=== PATIENT | female | born 1935 | race Caucasian/White ===

== ENCOUNTER → 2016-02-29 | Outpatient (CLI) | payer MEDICARE ==
[~2016-02-29] MED LIST: ACYC400T PO; ALPR0.5T7 PO; AMLO5TAB2 PO; ASCO-262 PO; BACL10TA PO; CALC1TAB74 PO; CATHETER FLUSH 10 ML SYR IV PRN; CHOL2000 PO; DEXA4TAB; HYDR-3820 PO; IRON150C3 PO; LACT20SO2 PO; LOSA100T28 PO; LOSA50TA36 PO; MAGN400T6 PO; METR500T21 PO; MONT10TA24 PO; MULT-1021 PO; OMEG-160 PO; OMEP20CA12 PO; PSYL798P2 PO; RIVA15TA PO; SOTA80TA PO; Sotalol Hcl PO; TRAM50TA2 PO
--- OUTSIDE RECORDS SUMMARY | 2016-02-29 07:59 | XMS REPORT | Continuity of Care Document ---
Author Author [facility] Organization [facility] Address Unknown Phone Unavailable Care Team Providers Care Prototype Deicer Assembler Name Role Phone NATANAEL ROBERT DO PCP Insurance Providers Payer Name Policy Number Subscriber Name Relationship Wps Medicare [id number] Erlinda Ballard 18 Self / Same As Patient Blue Cross Mcr Supp [id number] Erlinda Ballard 18 Self / Same As Patient Advance Directives Directive Response Recorded Date/Time Advance Directives No 10/26/15 10:29am Health Care Power of Home Health Aide Caregiver No 10/26/15 10:29am Organ Donor Yes 10/26/15 10:29am Resuscitation Status Full Code 10/26/15 10:29am Problems No problem information available. Medications Current Home Medications Medication Dose Units Route Directions Days/Qty Instructions Start Date Sotalol Hcl 80 Mg 80 Mg Oral Daily 10/26/15 Rivaroxaban 15 Mg 15 Mg Oral Daily 10/26/15 Losartan Potassium 100 Mg 100 Mg Oral Daily 10/26/15 Omeprazole 20 Mg 20 Mg Oral Daily 10/26/15 Calcium Citrate/Vitamin D3 1 Each 1 Each Oral Daily 10/26/15 Magnesium Oxide 400 Mg 400 Mg Oral Daily 10/26/15 Amlodipine Besylate 5 Mg 5 Mg Oral Daily 10/26/15 Montelukast Sodium 10 Mg 10 Mg Oral Bedtime 10/26/15 Social History Social History Problem Response Recorded Date/Time Alcohol Use Denies Use 10/26/2015 10:37am Recreational Drug Use No 10/26/2015 10:37am Recent Foreign Travel No 10/26/2015 10:29am Recent Infectious Disease Exposure No 10/26/2015 10:29am Smoking Status Never a Smoker 10/26/2015 10:31am Recent Hopitalizations No 10/26/2015 10:37am Query Response Start Date Stop Date Smoking Status Never a Smoker Hospital Discharge Instructions No hospital discharge instructions. Plan of Care Discharge Date 10/26/15 11:30am Prescriptions See Medication Section Functional Status No functional status results. Allergies, Adverse Reactions, Alerts No known allergies. Immunizations No immunization records. Vital Signs Acute Vital Signs Vital Response Date/Time Pulse Rate (adult) 72 bpm (60 - 90) 10/26/2015 10:29am O2 Sat by Pulse Oximetry 97 % (88 - 100) 10/26/2015 10:29am Blood Pressure 149/84 mm Hg 10/26/2015 10:29am Blood Pressure Mean 105 mm Hg 10/26/2015 10:29am Pain Numeric Pain Scale 0-No Pain 10/26/2015 10:29am Height (Feet) 5 feet 10/26/2015 10:29am Height (Inches) 1.00 inches 10/26/2015 10:29am Height (Calculated Centimeters) 154.911299 cm 10/26/2015 10:29am Weight (Pounds) 160 pounds 10/26/2015 10:29am Weight (Ounces) 6.0 oz 10/26/2015 10:29am Weight (Calculated Grams) 53179.88 gm 10/26/2015 10:29am Weight (Calculated Kilograms) 72.856376 kilograms 10/26/2015 10:29am Calculated BMI 30.3 10/26/2015 10:29am Results Laboratory Results Test Name Result Units Flags Reference Collection Date/Time Result Date/ Time Comments White Blood Count 6.0 10^3/uL 4.3-11.0 10/26/2015 11:00am 10/26/2015 11 :20am Red Blood Count 3.75 10^6/uL L 4.35-5.85 10/26/2015 11:00am 10/26/2015 11 :20am Hemoglobin 12.4 G/DL 11.5-16.0 10/26/2015 11:00am 10/26/2015 11:20am Hematocrit 37 % 35-52 10/26/2015 11:00am 10/26/2015 11:20am Mean Corpuscular Volume 99 FL 80-99 10/26/2015 11:0010/26/2015 11: 20am Mean Corpuscular Hemoglobin 33 PG 25-34 10/26/2015 11:0010/26/2015 11:20am Mean Corpuscular Hemoglobin Concent 34 G/DL 32-36 10/26/2015 11:00am 11:20am Red Cell Distribution Width 14.2 % 10.0-14.5 10/26/2015 11:002015 11:20am Platelet Count 237 10^3/uL 130-400 10/26/2015 11:00am 10/26/2015 11: 20am Mean Platelet Volume 10.3 FL 7.4-10.4 10/26/2015 11:00am 10/26/2015 11: 20am Neutrophils (%) (Auto) 52 % 42-75 10/26/2015 11:00am 10/26/2015 11: 20am Lymphocytes (%) (Auto) 34 % 12-44 10/26/2015 11:00am 10/26/2015 11: 20am Monocytes (%) (Auto) 11 % 0-12 10/26/2015 11:00am 10/26/2015 11:20am Eosinophils (%) (Auto) 3 % 0-10 10/26/2015 11:0010/26/2015 11:20am Basophils (%) (Auto) 1 % 0-10 10/26/2015 11:00am 10/26/2015 11:20am Neutrophils # (Auto) 3.1 X 10^3 1.8-7.8 10/26/2015 11:00am 10/26/2015 11:20am Lymphocytes # (Auto) 2.1 X 10^3 1.0-4.0 10/26/2015 11:00am 10/26/2015 11:20am Monocytes # (Auto) 0.6 X 10^3 0.0-1.0 10/26/2015 11:0010/26/2015 11: 20am Eosinophils # (Auto) 0.2 10^3/uL 0.0-0.3 10/26/2015 11:00am 10/26/2015 11:20am Basophils # (Auto) 0.0 10^3/uL 0.0-0.1 10/26/2015 11:00am 10/26/2015 11 :20am Prothrombin Time 27.1 SEC H 12.2-14.7 10/26/2015 11:00am 10/26/2015 11: 55am INR Comment 2.5 H 0.8-1.4 10/26/2015 11:00am 10/26/2015 11:55am INTERPRETIVE DATA SUGGESTED THERAPEUTIC RANGE FOR INR'S: VENOUS THROMBOSIS, PULMONARY EMBOLISM, OR PREVENTION OF SYSTEMIC EMBOLISM (EG. IN ATRIAL FIBRILLATION): 2.0 - 3.0 MECHANICAL PROSTHETIC HEART VALVES: 2.5 - 3.5* *NOTE: INR'S UP TO 4.5 MAY BE NECESSARY IN SELECTED GROUPS OF HIGH RISK PATIENTS. [employer] [place] [employer] OF CHEST PHYSICIANS CONSENSUS CONFERENCE ON ANTITHROMBOTIC THERAPY (2000). Urine Color YELLOW 10/26/2015 11:53am 10/26/2015 12:21pm Urine Clarity CLEAR 10/26/2015 11:53am 10/26/2015 12:21pm Urine pH 7 5-9 10/26/2015 11:53am 10/26/2015 12:21pm Urine Specific [place] 1.005 * 1.016-1.022 10/26/2015 11:53am 2015 12:21pm Urine Protein NEGATIVE NEGATIVE 10/26/2015 11:53am 10/26/2015 12: 21pm Urine Glucose (UA) NEGATIVE NEGATIVE 10/26/2015 11:53am 10/26/2015 12 :21pm Urine RBC (Auto) NEGATIVE NEGATIVE 10/26/2015 11:53am 10/26/2015 12: 21pm Urine Ketones NEGATIVE NEGATIVE 10/26/2015 11:53am 10/26/2015 12: 21pm Urine Nitrite NEGATIVE NEGATIVE 10/26/2015 11:53am 10/26/2015 12: 21pm Urine Bilirubin NEGATIVE NEGATIVE 10/26/2015 11:53am 10/26/2015 12: 21pm Urine Urobilinogen NORMAL MG/DL NORMAL 10/26/2015 11:53am 10/26/2015 12 :21pm Urine Leukocyte Esterase 1+ * NEGATIVE 10/26/2015 11:53am 10/26/2015 12 :21pm Urine RBC NONE /HPF 10/26/2015 11:53am 10/26/2015 12:21pm Urine WBC NONE /HPF 10/26/2015 11:53am 10/26/2015 12:21pm Urine Bacteria NEGATIVE /HPF 10/26/2015 11:53am 10/26/2015 12:21pm Urine Squamous Epithelial Cells 2-5 /HPF 10/26/2015 11:53am 2015 12:21pm Urine Crystals NONE /LPF 10/26/2015 11:53am 10/26/2015 12:21pm Urine Casts NONE /LPF 10/26/2015 11:53am 10/26/2015 12:21pm Urine Mucus NEGATIVE /LPF 10/26/2015 11:53am 10/26/2015 12:21pm Urine Culture Indicated NO 10/26/2015 11:53am 10/26/2015 12:21pm Sodium Level 130 MMOL/L L 135-145 10/26/2015 11:00am 10/26/2015 11:38am Potassium Level 4.1 MMOL/L 3.6-5.0 10/26/2015 11:00am 10/26/2015 11: 38am Chloride Level 102 MMOL/L 98-107 10/26/2015 11:00am 10/26/2015 11:38am Carbon Dioxide Level 21 MMOL/L 21-32 10/26/2015 11:00am 10/26/2015 11: 38am Anion Gap 7 MMOL/L 5-14 10/26/2015 11:00am 10/26/2015 11:38am Blood Urea Nitrogen 21 MG/DL H 7-18 10/26/2015 11:00am 10/26/2015 11: 38am Creatinine 1.05 MG/DL 0.60-1.30 10/26/2015 11:00am 10/26/2015 11:38am BUN/Creatinine Ratio 20 10/26/2015 11:00am 10/26/2015 11:38am Estimat Glomerular Filtration Rate 51 10/26/2015 11:00am 2015 11:38am GFR INTERPRETIVE DATA UNITS FOR ESTIMATED GFR (eGFR): mL/min/1.73 M2 REFERENCE RANGE FOR ESTIMATED GFR (eGFR) eGFR NORMAL eGFR >60 MODERATELY DECREASED eGFR 30-59 SEVERLY DECREASED eGFR 15-29 KIDNEY FAILURE <15 (OR DIALYSIS) Glucose Level 91 MG/DL 70-105 10/26/2015 11:00am 10/26/2015 11:38am Calcium Level 10.5 MG/DL H 8.5-10.1 10/26/2015 11:00am 10/26/2015 11: 38am Procedures No known history of procedures. Encounters Encounter Location Arrival/Admit Date Discharge/Depart Date Attending Provider Departed [facility] 10/26/15 10:11am 10/26/15 11: 30am URIAH PINA DO
--- NOTE | 2016-02-29 14:04 | Diagnostic Imaging Report ---
Whole body bone scan with three-phase bone scan over the pelvis performed. TECHNIQUE: After the intravenous administration of 25.5 mCi of Technetium 99m MDP, whole body delayed phase bone scan images were obtained with lateral views of the head and neck and the chest regions. INDICATION: Lytic lesion in the right hip. FINDINGS: Recent CT scan demonstrates a right hip lesion suggestive of an underlying soft tissue mass with fracture seen along the greater trochanter. Other lesions are identified in the femoral head and neck junction on the right side and the right sacrum ala. These lesions demonstrate no definitive activity with increased triphasic activity around the greater trochanter probably secondary to the fracture. Whole body delayed phase images demonstrate no definitive lesion other than the mild to moderate activity around the fracture site in the right greater trochanter. There is mild increased radiotracer activity in the mid and lower thoracic spine and some degenerative pattern of activity around the shoulders and other joints. There is photopenia suggestive of bilateral knee replacement seen. Slight asymmetric increased activity around the left knee prosthesis is noted, a nonspecific finding which is particularly expected if the prosthesis placement was within a year. Renal collecting system excretion is noted. IMPRESSION: The lytic lesions seen in the pelvis are not associated with significantly increased radiotracer uptake and the mild to moderate uptake around the greater trochanter lesion is probably secondary to the associated fracture. The findings are in favor of multiple myeloma rather than metastatic disease. CT-guided biopsy of the right greater trochanter or right sacrum ala lesion could be performed if needed. Dictated by: Dictated on workstation # [id number]
== END ==
LOC: CARD 07:54
PROVIDERS: ATTEND Orthopaedic Surgery
DX: M85.851 Other specified disorders of bone density and structure, right thigh (principal)
CPT/HCPCS: 78315

== ENCOUNTER → 2016-03-08 | Outpatient (CLI) | payer MEDICARE ==
[~2016-03-08] MED LIST changes: -CATHETER FLUSH 10 ML SYR IV PRN
--- OUTSIDE RECORDS SUMMARY | 2016-03-08 12:05 | XMS REPORT | Continuity of Care Document ---
Author Author [facility] Organization [facility] Address Unknown Phone Unavailable Care Team Providers Care Naphthol Soaping Machine Operator Name Role Phone NATANAEL ROBERT DO PCP Insurance Providers Payer Name Policy Number Subscriber Name Relationship Wps Medicare [id number] Erlinda Ballard 18 Self / Same As Patient Blue Cross Mcr Supp [id number] Erlinda Ballard 18 Self / Same As Patient Advance Directives Directive Response Recorded Date/Time Advance Directives No 10/26/15 10:29am Health Care Power of Yield Engineer No 10/26/15 10:29am Organ Donor Yes 10/26/15 [...] 1.00 inches 10/26/2015 10:29am Height (Calculated Centimeters) 154.840230 cm 10/26/2015 10:29am Weight (Pounds) 160 pounds 10/26/2015 10:29am Weight (Ounces) 6.0 oz 10/26/2015 10:29am Weight (Calculated Grams) 64060.88 gm 10/26/2015 10:29am Weight (Calculated Kilograms) 72.407886 kilograms 10/26/2015 10:29am Calculated BMI 30.3 10/26/2015 [...] SELECTED GROUPS OF HIGH RISK PATIENTS. [employer] [place] [place] [employer] CHEST PHYSICIANS CONSENSUS CONFERENCE ON ANTITHROMBOTIC THERAPY (2000). Urine Color YELLOW 10/26/2015 11:53am 10/26/2015 12:21pm Urine Clarity CLEAR 10/26/2015 11:53am 10/26/2015 12:21pm Urine pH 7 5-9 10/26/2015 11:53am 10/26/2015 12:21pm Urine Specific [place] 1.005 * 1.016-1.022 10/26/2015 11:53am 2015 12:21pm [...] Discharge/Depart Date Attending Provider Departed Clinic [facility] 10/26/15 10:11am 10/26/15 11: 30am URIAH PINA DO
--- NOTE | 2016-03-08 18:59 | Diagnostic Imaging Report ---
INDICATION: Multiple bone lesions. Multiple myeloma. FINDINGS: Lateral view of the skull demonstrate no definite underlying mass. Lateral view of the cervical spine demonstrates advanced degenerative changes with no lytic mass. Thoracic spine demonstrates advanced degenerative changes. The thoracic spine also demonstrates advanced degenerative changes with mild left convexity scoliosis. There is small lucency seen within the clavicles, the scapula, and the ribs in a diffuse fashion which may relate to multiple myeloma. Bilateral humerus and forearm radiographs demonstrate multifocal areas of lucency within these bones, probably related to multiple myeloma. These are numerous and very small in size. The pelvis demonstrates similar diffuse lesions with a dominant lytic lesion identified in the greater tuberosity. The lesion seen on CT scan within the right sacrum ala superiorly is slightly obscured by bowel content and the lesion in the medial inferior aspect of the right humeral head is not well seen. Pathologic fracture of the greater trochanter is seen. Both femurs demonstrate numerous tiny foci of lucency likely related to multiple myeloma. The tibia and fibula demonstrate bilateral knee replacement with no definite myeloma lesion. IMPRESSION: There is a pattern of diffuse tiny foci of lucency seen within the osseous structures most prominent in the pelvis, the femora, the ribs, shoulders and proximal upper extremities with dominant larger few lesions in the pelvis likely related to multiple myeloma. Dictated by: Dictated on workstation # [id number]
== END ==
LOC: RAD 12:00
PROVIDERS: ATTEND Internal Medicine
DX: C90.00 Multiple myeloma not having achieved remission (principal)
CPT/HCPCS: 77075

== ENCOUNTER 2016-03-23 06:52 | Day surgery (SDC) | payer MEDICARE ==
[~2016-03-23] VITALS: Ht 154.9 cm; Wt 68.2 kg
[2016-03-23] VITALS (14 sets, daily range): BP systolic 103–179; BP diastolic 59–100
[~2016-03-23 06:52] MED LIST changes: -ACYC400T PO; -ALPR0.5T7 PO; -DEXA4TAB; -LOSA50TA36 PO; -METR500T21 PO
--- OUTSIDE RECORDS SUMMARY | 2016-03-23 06:55 | XMS REPORT | Continuity of Care Document ---
Author Author [facility] Organization [facility] Address Unknown Phone Unavailable Care Team Providers Care Cash Management Officer Name Role Phone NATANAEL ROBERT DO PCP Insurance Providers Payer Name Policy Number Subscriber Name Relationship Wps Medicare [id number] Erlinda Ballard 18 Self / Same As Patient Blue Cross Mcr Supp [id number] Erlinda Ballard 19 Self / Same As Patient Advance Directives Directive Response Recorded Date/Time Advance Directives No 10/26/15 10:29am Health Care Power of Older Worker Specialist No 10/26/15 10:29am Organ Donor Yes 10/26/15 [...] 1.00 inches 10/26/2015 10:29am Height (Calculated Centimeters) 154.263331 cm 10/26/2015 10:29am Weight (Pounds) 160 pounds 10/26/2015 10:29am Weight (Ounces) 6.0 oz 10/26/2015 10:29am Weight (Calculated Grams) 93853.88 gm 10/26/2015 10:29am Weight (Calculated Kilograms) 72.584945 kilograms 10/26/2015 10:29am Calculated BMI 30.3 10/26/2015 [...] SELECTED GROUPS OF HIGH RISK PATIENTS. SIXTH [place] [employer] CHEST PHYSICIANS CONSENSUS CONFERENCE ON ANTITHROMBOTIC THERAPY (2000). Urine Color YELLOW 10/26/2015 11:53am 10/26/2015 12:21pm Urine Clarity CLEAR 10/26/2015 11:53am 10/26/2015 12:21pm Urine pH 7 5-9 10/26/2015 11:53am 10/26/2015 12:21pm Urine Specific [place] 1.005 * 1.016-1.022 10/26/2015 11:53am 2015 12:21pm [...] Discharge/Depart Date Attending Provider Departed Clinic [facility] 10/26/15 10:11am 10/26/15 11: 30am URIAH PINA DO
--- OUTSIDE RECORDS SUMMARY | 2016-03-23 06:56 | XMS REPORT | Continuity of Care Document ---
Author Author [facility] Organization [facility] Address Unknown Phone Unavailable Care Team Providers Care Parcel Post Officer Name Role Phone NATANAEL ROBERT DO PCP Insurance Providers Payer Name Policy Number Subscriber Name Relationship Wps Medicare [id number] Erlinda Ballard 19 Self / Same As Patient Blue Cross Mcr Supp [id number] Erlinda Ballard 19 Self / Same As Patient Advance Directives Directive Response Recorded Date/Time Advance Directives No 10/26/15 10:29am Health Care Power of Wool Handler No 10/26/15 10:29am Organ Donor Yes 10/26/15 [...] 1.00 inches 10/26/2015 10:29am Height (Calculated Centimeters) 154.812886 cm 10/26/2015 10:29am Weight (Pounds) 160 pounds 10/26/2015 10:29am Weight (Ounces) 6.0 oz 10/26/2015 10:29am Weight (Calculated Grams) 54852.88 gm 10/26/2015 10:29am Weight (Calculated Kilograms) 72.172481 kilograms 10/26/2015 10:29am Calculated BMI 30.3 10/26/2015 [...] SELECTED GROUPS OF HIGH RISK PATIENTS. SIX[employer] [place] [employer] CHEST PHYSICIANS CONSENSUS CONFERENCE ON ANTITHROMBOTIC THERAPY (2000). Urine Color YELLOW 10/26/2015 11:53am 10/26/2015 12:21pm Urine Clarity CLEAR 10/26/2015 11:53am 10/26/2015 12:21pm Urine pH 7 5-9 10/26/2015 11:53am 10/26/2015 12:21pm Urine Specific [place] 1.005 * 1.016-1.022 10/26/2015 11:53am 2015 12:21pm [...] Discharge/Depart Date Attending Provider Departed Clinic [facility] 10/26/15 10:11am 10/26/15 11: 30am URIAH PINA DO
[2016-03-23 07:31] LABS: MEAN PLATELET VOLUME 9.4 FL (7.4-10.4); RED BLOOD COUNT 3.73 10^6/uL (4.35-5.85); WHITE BLOOD COUNT 5.9 10^3/uL (4.3-11.0)
[2016-03-23] MEDS ORDERED: fentaNYL INJECTION 100 MCG/2 ML AMP ONE (07:58)
[2016-03-23] MEDS ORDERED: MIDAZOLAM 2 MG/2 ML (VERSED) VIAL ONE (07:58)
[2016-03-23] MEDS ORDERED: LIDOCAINE 1% INJ 20 ML (XYLOCAINE) VIAL ONE (07:59)
[2016-03-23] MEDS: fentaNYL INJECTION 100 MCG/2 ML AMP IVP PRN ×2 (08:40→08:49)
[2016-03-23] MEDS ORDERED: HYDROcodone/APAP 5 MG/325 MG (LORTAB) TAB PO PRN (09:15)
[2016-03-23 09:20] LABS: BASOPHILS % (AUTO) 1 % (0-10); EOSINOPHILS # (AUTO) 0.1 10^3/uL (0.0-0.3); EOSINOPHILS % (AUTO) 2 % (0-10); LYMPHOCYTES # (AUTO) 2.7 X 10^3 (1.0-4.0); LYMPHOCYTES % (AUTO) 42 % (12-44); MEAN CORPUSCULAR HEMOGLOBIN 33 PG (25-34); MEAN CORPUSCULAR HGB CONC 34 G/DL (32-36); MEAN CORPUSCULAR VOLUME 97 FL (80-99); MEAN PLATELET VOLUME 9.7 FL (7.4-10.4); MONOCYTES # (AUTO) 0.8 X 10^3 (0.0-1.0); MONOCYTES % (AUTO) 12 % (0-12); NEUTROPHILS # (AUTO) 2.8 X 10^3 (1.8-7.8); NEUTROPHILS % (AUTO) 44 % (42-75); PLATELET COUNT 323 10^3/uL (130-400); RED BLOOD COUNT 3.72 10^6/uL (4.35-5.85); RETICULOCYTE % 1.53 % (0.50-2.40); WHITE BLOOD COUNT 6.4 10^3/uL (4.3-11.0)
--- NOTE | 2016-03-23 09:33 | Diagnostic Imaging Report ---
EXAMINATION: 1. CT-guided biopsy-of slightly to the right sacrum mass. 2. CT-guided aspiration and biopsy of the bone marrow taken from the right iliac bone INDICATION: Lytic lesions in the pelvis, suspicious for from multiple myeloma. Current history and physical and other medical records are reviewed prior to the procedure. CONSENT: Informed consent was obtained from the patient. The risks, benefits, potential complications and alternatives were reviewed and all questions answered to the patient's satisfaction. The patient's vital signs, cardiac rhythm, and pulse oximetry were observed throughout the procedure by qualified nursing personnel. Sedation/medications: Fentanyl 50 mcg IV. FINDINGS: Lytic lesion in the right the upper sacrum is seen. The patient is placed prone and the 2 biopsies are planned from adjacent sites. PROCEDURE: After maximal sterile barrier technique preparation and draping, 1% lidocaine was utilized for local anesthesia. With the patient in prone position, and via posterior approach, a 13-gauge guide needle is introduced into the right iliac bone under CT scan guidance. After confirming adequate positioning with saved CT images, bone marrow aspirates are performed and provided to senior cytotechnologist present in the room. Subsequently multiple core biopsy specimens were obtained. Based on the suspected diagnosis of multiple myeloma, pathology requested that both aspiration and core biopsy to be performed for complete analysis. Subsequently attention was turned into the upper from right sacrum lytic lesion. Similarly with the patient in prone position, and via posterior approach, a new 19-gauge guide needle is introduced into the right upper sacrum lytic lesion under CT scan guidance. After confirming adequate positioning with saved CT images, multiple 18-gauge core biopsy specimens were obtained. The patient tolerated the procedure well with no immediate complications. IMPRESSION: Successful CT-guided biopsy of upper right sacrum lytic lesion, and bone marrow aspiration and the biopsy performed separately from the right iliac bone. Dictated by: Dictated on workstation # [id number]
[2016-03-23 10:01] LABS: BAND NEUTROPHILS 0 %; BASOPHILS % (MANUAL) 1 %; EOSINOPHILS % (MANUAL) 1 %; LYMPHOCYTES % (MANUAL) 34 %; NEUTROPHILS % (MANUAL) 49 %; REACTIVE LYMPHOCYTES 9 %
[2016-06-10] MEDS ORDERED: ACYC400T PO (23:38)
[2016-06-10] MEDS ORDERED: ALPR0.5T7 PO (23:38)
[2016-06-11] MEDS ORDERED: LOSA50TA36 PO (12:17)
== END 2016-03-23 13:06 | disposition home or self-care (01) ==
LOC: RAD 06:52
PROVIDERS: ATTEND Internal Medicine Hematology & Oncology
DX: C90.00 Multiple myeloma not having achieved remission (principal); I48.91 Unspecified atrial fibrillation; K21.9 Gastro-esophageal reflux disease without esophagitis; Z95.0 Presence of cardiac pacemaker; Z79.01 Long term (current) use of anticoagulants
CPT/HCPCS: 36415; 77012; 85007; 85027; 85045; 85610; 85730; 88184; 88185; 88237; 88264; 88280; 88305; 88311; 88313; 88368; 88369

== ENCOUNTER → 2016-05-12 | Outpatient (CLI) | payer MEDICARE ==
[~2016-05-12] MED LIST changes: +ACYC400T PO; +ALPR0.5T7 PO; +DEXA4TAB; +LOSA50TA36 PO; +METR500T21 PO
== END ==
LOC: RAD 16:20
PROVIDERS: ATTEND Internal Medicine Hematology & Oncology
DX: C90.00 Multiple myeloma not having achieved remission (principal); R32 Unspecified urinary incontinence; R51 Headache

== ENCOUNTER 2016-06-10 19:33 | Observation (INO) | payer MEDICARE ==
[~2016-06-10] VITALS: Ht 154.9 cm; Wt 68.2 kg
[~2016-06-10 19:33] MED LIST changes: -ACYC400T PO; -ALPR0.5T7 PO; -DEXA4TAB; -LOSA50TA36 PO; -METR500T21 PO
--- NOTE | 2016-06-10 19:46 | ED General ---
General Chief Complaint: General Problems/Pain Stated Complaint: UNRESPONSIVE Nursing Triage Note: Patient was eating with daughter and became unresponsive and was slumped over. patient remained unresponsive until EMS obtained her BP. Patient is alert and oriented on arrival to ED. patient currently denies needs or complaints. Nursing Sepsis Screen: No Definite Risk Source of Information: Patient Exam Limitations: No Limitations History of Present Illness Time Seen by Provider: 19:43 Initial Comments Patient had just finished eating dinner when she had a syncopal episode. Patient felt lightheaded prior to event. Daughter reports patient became pale and wasn't making much sense then she completely lost consciousness. Daughter called 911. Patient remained in the chair until EMS arrived. When they put patient on the cart (horizontal) she regained consciousness. No vomiting. No complaints of pain. No seizure activity noted. No incontinence. Feels fine now. Patient has multiple myeloma and received her second dose of chemotherapy on Sunday. Allergies and Home Medications Allergies Coded Allergies: No Known Drug Allergies (Unverified , 11/11/15) Home Medications Amlodipine Besylate 5 Mg Tablet, 5 MG PO DAILY, (Reported) Ascorbate Calcium 500 Mg Tablet, 500 MG PO HS, (Reported) Baclofen 10 Mg Tablet, 10 MG PO TID PRN for SPASMS for 30 Days Prescribed by: ROLF AMADO on 11/11/15 08 Calcium Citrate/Vitamin D3 1 Each Tablet, 1 TAB PO DAILY, (Reported) Cholecalciferol (Vitamin D3) 2,000 Unit Capsule, 2,000 UNIT PO HS, (Reported) Hydrocodone/Acetaminophen 1 Each Tablet, 1 EA PO Q4H PRN for MODERATE PAIN for 30 Days Prescribed by: ROLF AMADO on 11/11/15 08 Hydrocodone/Acetaminophen 1 Each Tablet, 1 EA PO Q4H PRN for MODERATE PAIN, #30 Prescribed by: TAE MENDOZA on 11/19/15 09 Iron Polysaccharide Complex 150 Mg Capsule, 150 MG PO BID WITH MEALS for 30 Days Prescribed by: ROLF AMADO on 11/11/15 08 Lactulose 20 Gm/30 Ml Solution, 10 GM PO BID for 30 Days Prescribed by: ROLF AMADO on 11/11/15 08 Losartan Potassium 100 Mg Tablet, 100 MG PO DAILY, (Reported) Magnesium Oxide 400 Mg Tablet, 400 MG PO DAILY, (Reported) Montelukast Sodium 10 Mg Tablet, 10 MG PO HS, (Reported) Multivits-Min/Iron/FA/Lutein 1 Each Tablet, 1 TAB PO HS, (Reported) [place]-3/Dha/Epa/Fish Oil 1 Each Capsule, 2,000 MG PO HS, (Reported) TAKES 2 (1,000 MG) CAPSULES Omeprazole 20 Mg Capsule.dr, 20 MG PO DAILY, (Reported) Psyllium Husk (with Sugar) 538 Gm Powder, PO HS, (Reported) Rivaroxaban 15 Mg Tablet, 15 MG PO DAILY, (Reported) Sotalol HCl 80 Mg Tablet, 80 MG PO DAILY, (Reported) Tramadol HCl 50 Mg Tablet, 50 MG PO Q6H PRN for MILD PAIN for 30 Days Prescribed by: ROLF AMADO on 11/11/15 0843 Tramadol HCl 50 Mg Tablet, 50 MG PO Q6H PRN for MILD PAIN, #30 Prescribed by: TAE MENDOZA on 11/19/15 0907 Tramadol HCl 50 Mg Tablet, 50 MG PO TID PRN for PAIN, #20 Ref 0 Prescribed by: SHAQUILLE HERNANDEZ on 02/17/16 1758 [Sotalol Hcl] 80 MG TAB, 80 MG PO DAILY, #30 Prescribed by: ROLF AMADO on 11/20/15 1355 Constitutional: malaise, weakness EENTM: no symptoms reported Respiratory: no symptoms reported Cardiovascular: no symptoms reported Musculoskeletal: no symptoms reported Psychiatric/Neurological: See HPI, Denies Seizure Past Sijcdre-Gcftkc-Sffjqq Hx Patient Social History Alcohol Use: Denies Use Recreational Drug Use: No Smoking Status: Never a Smoker Recent Foreign Travel: No Contact w/Someone Who Travel: No Recent Infectious Disease Expo: No Recent Hopitalizations: No Immunizations Up To Date Tetanus Booster (TDap): Less than 5yrs Date of Pneumonia Vaccine: Nov 09, 2011 Date of Influenza Vaccine: Nov 11, 2015 Seasonal Allergies Seasonal Allergies: Yes Surgeries HX Surgeries: Yes (right TKR, rectal fistula) Respiratory Hx Respiratory Disorders: No Cardiovascular Hx Cardiac Disorders: Yes (pacemaker) Neurological Hx Neurological Disorders: No Gastrointestinal Hx Gastrointestinal Disorders: No Musculoskeletal Hx Musculoskeletal Disorders: Yes Musculoskeletal Disorders: Arthritis Endocrine Hx Endocrine Disorders: No HEENT HX ENT Disorders: Yes (cataracts removed, glasses, full set of dentures) Cancer Hx Cancer: Yes Cancer: Bone, Melanoma Psychosocial Hx Psychiatric Problems: No Integumentary HX Skin/Integumentary Disorder: No Blood Transfusions Hx Blood Disorders: No Reviewed Nursing Assessment Reviewed/Agree w Nursing PMH: Yes Family Medical History Family Medial History: Arthritis 19 FATHER 19 MOTHER G8 BROTHER G8 SISTER Cardiovascular disease 19 FATHER Hypertension 19 FATHER 19 MOTHER G8 BROTHER G8 SISTER Kidney disease G8 SISTER Myocardial infarction 19 FATHER Physical Exam Vital Signs Vital Sign - Last 12Hours 06/10/16 19:35 Temp 98.2 Pulse 63 Resp 18 B/P (MAP) 161/93 Pulse Ox 96 Capillary Refill : Less Than 3 Seconds General Appearance: No Apparent Distress, WD/WN Eyes: Bilateral Eye EOMI, Bilateral Eye Normal Inspection, Bilateral Eye PERRL HEENT: PERRL/EOMI, Pharynx Normal Neck: Supple Respiratory: Lungs Clear, Normal Breath Sounds Cardiovascular: Regular Rate, Rhythm, No Edema Gastrointestinal: Soft Back: Normal Inspection Extremity: Normal Inspection, Normal Range of Motion Neurologic/Psychiatric: Alert, Oriented x3, No Motor/Sensory Deficits, Normal Mood/Affect Skin: Normal Color, Warm/Dry Progress/Results/Core Measures Results/Orders Lab Results Laboratory Tests Test 06/10/16 19:40 Range/Units White Blood Count 5.8 4.3-11.0 10^3/uL Red Blood Count 3.75 L 4.35-5.85 10^6/uL Hemoglobin 12.3 11.5-16.0 G/DL Hematocrit 36 35-52 % Mean Corpuscular Volume 96 80-99 FL Mean Corpuscular Hemoglobin 33 25-34 PG Mean Corpuscular Hemoglobin Concent 34 32-36 G/DL Red Cell Distribution Width 13.8 10.0-14.5 % Platelet Count 214 130-400 10^3/uL Mean Platelet Volume 9.7 7.4-10.4 FL Neutrophils (%) (Auto) 51 42-75 % Lymphocytes (%) (Auto) 29 12-44 % Monocytes (%) (Auto) 19 H 0-12 % Eosinophils (%) (Auto) 1 0-10 % Basophils (%) (Auto) 0 0-10 % Neutrophils # (Auto) 3.0 1.8-7.8 X 10^3 Lymphocytes # (Auto) 1.7 1.0-4.0 X 10^3 Monocytes # (Auto) 1.1 H 0.0-1.0 X 10^3 Eosinophils # (Auto) 0.1 0.0-0.3 10^3/uL Basophils # (Auto) 0.0 0.0-0.1 10^3/uL Prothrombin Time 22.0 H 12.2-14.7 SEC INR Comment 2.0 H 0.8-1.4 Activated Partial Thromboplast Time 29 24-35 SEC Sodium Level 131 L 135-145 MMOL/L Potassium Level 3.9 3.6-5.0 MMOL/L Chloride Level 100 98-107 MMOL/L Carbon Dioxide Level 21 21-32 MMOL/L Anion Gap 10 5-14 MMOL/L Blood Urea Nitrogen 19 H 7-18 MG/DL Creatinine 1.04 0.60-1.30 MG/DL Estimat Glomerular Filtration Rate 51 BUN/Creatinine Ratio 18 Glucose Level 133 H 70-105 MG/DL Calcium Level 9.5 8.5-10.1 MG/DL Magnesium Level 1.8 1.8-2.4 MG/DL Total Bilirubin 0.8 0.1-1.0 MG/DL Aspartate Amino Transf (AST/SGOT) 39 H 5-34 U/L Alanine Aminotransferase (ALT/SGPT) 21 0-55 U/L Alkaline Phosphatase 87 40-136 U/L Troponin I < 0.30 <0.30 NG/ML Total Protein 7.6 6.4-8.2 G/DL Albumin 3.6 3.2-4.5 G/DL Labs were reviewed My Orders Orders - ANN MARIE KELLY MD Cbc With Automated Diff (06/10/16 19:35) Magnesium (06/10/16 19:35) Ekg Tracing (06/10/16 19:35) Cardiac Profile 1 (06/10/16 19:35) Comprehensive Metabolic Panel (06/10/16 19:35) O2 (06/10/16 19:35) Monitor-Rhythm Ecg Trace Only (06/10/16 19:35) Saline Lock/Iv-Start (06/10/16 19:35) Ct Head Wo (06/10/16 19:40) Protime With Inr (06/10/16 19:40) Partial Thromboplastin Time (06/10/16 19:40) Chest 1 View, Ap/Pa Only (06/10/16 19:40) Vital Signs/I&O Vital Sign - Last 12Hours 06/10/16 19:35 Temp 98.2 Pulse 63 Resp 18 B/P (MAP) 161/93 Pulse Ox 96 Blood Pressure Mean: 115 Progress Note : Time: 20:44 Progress Note Test results discussed with patient and family. Advised admission for observation. Diagnostic Imaging Comments Chest x-ray and head CT showed nothing acute. Departure Communication Time/Spoke to Admitting Phy: 20:44 Communication I spoke with Dr. Amado who agrees to admit for observation Impression Impression: Primary Impression: Syncope Disposition: ADMITTED INPATIENT Condition: Stable Decision to Admit Reason: Admit from ER (General) Decision to Admit/Date: Jun 10, 2016 Time/Decision to Admit Time: 20:44 Departure-Patient Inst. Referrals: SULEIMAN GRIFFIN DO (PCP/Family) Primary Care Physician ANN MARIE KELLY MD Jun 10, 2016 19:46
[2016-06-10 19:49] LABS: BASOPHILS % (AUTO) 0 % (0-10); EOSINOPHILS # (AUTO) 0.1 10^3/uL (0.0-0.3); EOSINOPHILS % (AUTO) 1 % (0-10); LYMPHOCYTES # (AUTO) 1.7 X 10^3 (1.0-4.0); LYMPHOCYTES % (AUTO) 29 % (12-44); MEAN CORPUSCULAR HEMOGLOBIN 33 PG (25-34); MEAN CORPUSCULAR HGB CONC 34 G/DL (32-36); MEAN CORPUSCULAR VOLUME 96 FL (80-99); MEAN PLATELET VOLUME 9.7 FL (7.4-10.4); MONOCYTES # (AUTO) 1.1 X 10^3 (0.0-1.0); MONOCYTES % (AUTO) 19 % (0-12); NEUTROPHILS % (AUTO) 51 % (42-75); PLATELET COUNT 214 10^3/uL (130-400); RED BLOOD COUNT 3.75 10^6/uL (4.35-5.85); RED CELL DISTRIBUTION WIDTH 13.8 % (10.0-14.5); WHITE BLOOD COUNT 5.8 10^3/uL (4.3-11.0)
[2016-06-10 20:11] LABS: ALANINE AMINOTRANSFERASE 21 U/L (0-55); ALBUMIN 3.6 G/DL (3.2-4.5); ANION GAP 10 MMOL/L (5-14); ASPARTATE AMINO TRANSFERASE 39 U/L (5-34); BILIRUBIN,TOTAL 0.8 MG/DL (0.1-1.0); BLOOD UREA NITROGEN 19 MG/DL (7-18); BUN/CREATININE RATIO 18; CALCIUM 9.5 MG/DL (8.5-10.1); CARBON DIOXIDE 21 MMOL/L (21-32); CHLORIDE 100 MMOL/L (98-107); CREATININE SERUM 1.04 MG/DL (0.60-1.30); GFR ESTIMATED 51; GLUCOSE 133 MG/DL (70-105); MAGNESIUM 1.8 MG/DL (1.8-2.4); POTASSIUM 3.9 MMOL/L (3.6-5.0); SODIUM 131 MMOL/L (135-145); TOTAL PROTEIN 7.6 G/DL (6.4-8.2)
--- NOTE | 2016-06-10 20:20 | Diagnostic Imaging Report ---
PROCEDURE: CT head without contrast. TECHNIQUE: Multiple contiguous axial images were obtained through the brain without the use of intravenous contrast. DATE: June 10, 2016. COMPARISON: None. INDICATION: 80-year-old female, syncope. FINDINGS: There is mild mucosal thickening of the right maxillary sinus. The mastoid air cells and middle ears are well aerated. There is a low-attenuation lesion of CSF type intensity. It is adjacent to the basal ganglia which may relate to a prominent perivascular space or potentially the sequela of remote prior lacunar infarct. There are areas of low attenuation in the. Ventricular and subcortical white matter which most likely reflect mild changes of chronic small vessel ischemic disease. The ventricles and cerebral spinal fluid spaces are of normal size and configuration for the patient's age. There is no mass effect or midline shift. There is no acute intracranial hemorrhage. There is no abnormal extra-axial fluid collection. IMPRESSION: 1. No identified acute intracranial abnormality. 2. Probable mild changes of chronic small vessel ischemic disease. 3. CSF attenuation focus in the right inferior basal ganglia most likely relating to a prominent perivascular space versus sequela of remote prior lacunar infarct. Dictated by: Dictated on workstation # [id number]
--- NOTE | 2016-06-10 20:20 | Diagnostic Imaging Report ---
EXAMINATION: Chest radiograph, portable AP view. DATE: June 10, 2016 at 1958 hours. INDICATION: 80-year-old female, syncope. COMPARISON: May 29, 2016. FINDINGS: There is a left-sided cardiac assist device with right atrial and right ventricular leads. The leads appear intact. Stable overall appearance of the cardiomediastinal silhouette. There is no identified pneumothorax. There is no large pleural effusion. There is no identified interval focal airspace consolidation. IMPRESSION: No identified acute cardiopulmonary abnormality. Dictated by: Dictated on workstation # [id number]
[2016-06-10 22:45] VITALS: BP 131/73
[2016-06-10] MEDS ORDERED: ALPR0.5T7 PO ×2 (23:38)
[2016-06-10] MEDS ORDERED: DEXA4TAB (23:38)
[2016-06-10] MEDS ORDERED: RIVA15TA PO (23:38)
[2016-06-10] MEDS ORDERED: METR500T21 PO (23:38)
[2016-06-10] MEDS ORDERED: ACYC400T PO ×2 (23:38)
[2016-06-11] VITALS: BP 124/68
[2016-06-11 04:08] VITALS: BP 115/73
[2016-06-11 05:34] LABS: BASOPHILS % (AUTO) 1 % (0-10); EOSINOPHILS # (AUTO) 0.1 10^3/uL (0.0-0.3); EOSINOPHILS % (AUTO) 1 % (0-10); LYMPHOCYTES # (AUTO) 1.5 X 10^3 (1.0-4.0); LYMPHOCYTES % (AUTO) 35 % (12-44); MEAN CORPUSCULAR HEMOGLOBIN 32 PG (25-34); MEAN CORPUSCULAR HGB CONC 33 G/DL (32-36); MEAN CORPUSCULAR VOLUME 97 FL (80-99); MEAN PLATELET VOLUME 10.1 FL (7.4-10.4); MONOCYTES % (AUTO) 22 % (0-12); NEUTROPHILS # (AUTO) 1.8 X 10^3 (1.8-7.8); NEUTROPHILS % (AUTO) 41 % (42-75); PLATELET COUNT 196 10^3/uL (130-400); RED BLOOD COUNT 3.44 10^6/uL (4.35-5.85); WHITE BLOOD COUNT 4.4 10^3/uL (4.3-11.0)
[2016-06-11 05:51] LABS: ANION GAP 7 MMOL/L (5-14); BLOOD UREA NITROGEN 17 MG/DL (7-18); BUN/CREATININE RATIO 21; CALCIUM 8.7 MG/DL (8.5-10.1); CARBON DIOXIDE 22 MMOL/L (21-32); CHLORIDE 103 MMOL/L (98-107); CREATININE SERUM 0.82 MG/DL (0.60-1.30); GFR ESTIMATED > 60; GLUCOSE 83 MG/DL (70-105); MAGNESIUM 1.7 MG/DL (1.8-2.4); SODIUM 132 MMOL/L (135-145)
[2016-06-11 07:40] VITALS: BP 132/89
[2016-06-11 10:10] VITALS: BP_SYST 124; BP_SYST 151; BP_SYST 156; BP_DIAS 75; BP_DIAS 83; BP_DIAS 89
--- NOTE | 2016-06-11 10:25 | Consultation-Cardiology ---
HPI-Cardiology Cardiology Consultation: Date of Consultation 06/11/16 Date of Admission 06/10/16 Attending Physician Willa Amado DO Admitting Physician Remigio Palma DO Consulting Physician MARIO PETERS MD, FACP, FACC, [facility] [place], CCDS HPI: Chief Complaint: Syncope 80 yo woman who passed out for nearly half an hour at the dinner table last night. Daughter was there. I spoke with her on the phone. She states that Mrs Albarado started out with a blank stare and then put her head down on the table and passed out after several minutes and remained like that for several minutes. She did not report any symptoms prior to that. She did have large yawns before passing out. Family called EMT. EMT reported low bp while she was passed out, according to her daughter who was there, but nothing has been documented. When EMT made her lie flat on the stretcher, she came around She denies cp or palp or focal weakness or ankle swelling Has been on chemo for MM; last treatment on Review of Systems-Cardiology Review of Systems Constitutional: No malaise, No tiredness, weight loss (10 lbs since intiation of chemo in April 2016 for multiple myeloma) Eyes: No vision change Ears/Nose/Throat: No ear discharge, No nasal drainage, No recent hearing loss Respiratory: As described under HPI Cardiovascular: As described under HPI Gastrointestinal: No constipation, No diarrhea, No nausea, No vomiting Genitourinary: No dysuria, No hematuria, No urine frequency changes Musculoskeletal: back pain, joint pain Skin: No rash, No ulcerations Psychiatric/Neurological: syncope (see above), No focal weakness, No seizure Hematologic: No bleeding abnormalities DOS-Kzznmk-Yfwybt Hx Patient Social History Alcohol Use: Denies Use Recreational Drug Use: No Smoking Status: Never a Smoker Recent Foreign Travel: No Recent Infectious Disease Expo: No Hospitalization with Isolation: Denies Physical Abuse Screen: No Sexual Abuse: No Immunizations Up To Date Tetanus Booster (TDap): Less than 5yrs Date of Pneumonia Vaccine: Nov 09, 2011 Date of Influenza Vaccine: Nov 11, 2015 Past Medical History PMH As described under Assessment. Family Medical History Family Medical History: She reports her father had CAD. She reports her mother, brother and sister had HTN. Family History: Arthritis 19 FATHER 19 MOTHER G8 BROTHER G8 SISTER Cardiovascular disease 19 FATHER Hypertension 19 FATHER 19 MOTHER G8 BROTHER G8 SISTER Kidney disease G8 SISTER Myocardial infarction 19 FATHER Allergies and Home Medications Allergies Coded Allergies: No Known Drug Allergies (Unverified , 11/11/15) Home Medications Acyclovir 400 Mg Tablet, 400 MG PO, #70 (Reported) Alprazolam 0.5 Mg Tablet, 0.5 MG PO, #30 (Reported) Amlodipine Besylate 5 Mg Tablet, 5 MG PO DAILY, (Reported) Ascorbate Calcium 500 Mg Tablet, 500 MG PO HS, (Reported) Baclofen 10 Mg Tablet, 10 MG PO TID PRN for SPASMS for 30 Days Prescribed by: WILLA AMADO on 11/11/15 0843 Calcium Citrate/Vitamin D3 1 Each Tablet, 1 TAB PO DAILY, (Reported) Cholecalciferol (Vitamin D3) 2,000 Unit Capsule, 2,000 UNIT PO HS, (Reported) Dexamethasone 4 Mg Tablet, #40 (Reported) Hydrocodone/Acetaminophen 1 Each Tablet, 1 EA PO Q4H PRN for MODERATE PAIN for 30 Days Prescribed by: WILLA AMADO on 11/11/15 0843 Hydrocodone/Acetaminophen 1 Each Tablet, 1 EA PO Q4H PRN for MODERATE PAIN, #30 Prescribed by: TAE MENDOZA on 11/19/15 0907 Iron Polysaccharide Complex 150 Mg Capsule, 150 MG PO BID WITH MEALS for 30 Days Prescribed by: WILLA AMADO on 11/11/15 0843 Lactulose 20 Gm/30 Ml Solution, 10 GM PO BID for 30 Days Prescribed by: WILLA AMADO on 11/11/15 0843 Losartan Potassium 100 Mg Tablet, 100 MG PO DAILY, (Reported) Magnesium Oxide 400 Mg Tablet, 400 MG PO DAILY, (Reported) Metronidazole 500 Mg Tablet, 500 MG PO, #14 (Reported) Montelukast Sodium 10 Mg Tablet, 10 MG PO HS, (Reported) Multivits-Min/Iron/FA/Lutein 1 Each Tablet, 1 TAB PO HS, (Reported) [place]-3/Dha/Epa/Fish Oil 1 Each Capsule, 2,000 MG PO HS, (Reported) TAKES 2 (1,000 MG) CAPSULES Omeprazole 20 Mg Capsule.dr, 20 MG PO DAILY, (Reported) Psyllium Husk (with Sugar) 538 Gm Powder, PO HS, (Reported) Rivaroxaban 15 Mg Tablet, 15 MG PO DAILY, (Reported) Rivaroxaban 15 Mg Tablet, 15 MG PO, #30 (Reported) Sotalol HCl 80 Mg Tablet, 80 MG PO DAILY, (Reported) Tramadol HCl 50 Mg Tablet, 50 MG PO Q6H PRN for MILD PAIN for 30 Days Prescribed by: WILLA AMADO on 11/11/15 0843 Tramadol HCl 50 Mg Tablet, 50 MG PO Q6H PRN for MILD PAIN, #30 Prescribed by: TAE MENDOZA on 11/19/15 0907 Tramadol HCl 50 Mg Tablet, 50 MG PO TID PRN for PAIN, #20 Ref 0 Prescribed by: SHAQUILLE HERNANDEZ on 02/17/16 1758 [Sotalol Hcl] 80 MG TAB, 80 MG PO DAILY, #30 Prescribed by: WILLA AMADO on 11/20/15 1355 Physical Exam-Cardiology Physical Exam Vital Signs/I&O Vital Sign - Last 12Hours 06/10/16 06/10/16 06/10/16 06/10/16 22:20 22:42 22:45 23:43 Temp 98.7 Pulse 61 62 Resp 16 B/P (MAP) 131/73 Pulse Ox 98 96 O2 Delivery Room Air Room Air 06/11/16 06/11/16 06/11/16 06/11/16 00:00 00:00 01:00 04:00 Pulse 64 60 Resp 14 B/P (MAP) 124/68 Pulse Ox 96 96 96 O2 Delivery Room Air 06/11/16 06/11/16 06/11/16 06/11/16 04:08 07:00 07:40 07:40 Temp 98.7 Pulse 62 62 Resp 14 B/P (MAP) 115/73 Pulse Ox 96 95 95 O2 Delivery Room Air Room Air 06/11/16 07:40 Temp 97.3 Pulse 71 Resp 20 B/P (MAP) 132/89 Pulse Ox 95 O2 Delivery Room Air Capillary Refill : Less Than 3 SecondsLess Than 3 Seconds Data Review Labs Laboratory Tests 06/10/16 19:40: White Blood Count 5.8, Red Blood Count 3.75L, Hemoglobin 12.3, Hematocrit 36, Mean Corpuscular Volume 96, Mean Corpuscular Hemoglobin 33, Mean Corpuscular Hemoglobin Concent 34, Red Cell Distribution Width 13.8, Platelet Count 214, Mean Platelet Volume 9.7, Neutrophils (%) (Auto) 51, Lymphocytes (%) (Auto) 29, Monocytes (%) (Auto) 19H, Eosinophils (%) (Auto) 1, Basophils (%) (Auto) 0, Neutrophils # (Auto) 3.0, Lymphocytes # (Auto) 1.7, Monocytes # (Auto) 1.1H, Eosinophils # (Auto) 0.1, Basophils # (Auto) 0.0, Prothrombin Time 22.0H, INR Comment 2.0H, Activated Partial Thromboplast Time 29, Sodium Level 131L, Potassium Level 3.9, Chloride Level 100, Carbon Dioxide Level 21, Anion Gap 10, Blood Urea Nitrogen 19H, Creatinine 1.04, Estimat Glomerular Filtration Rate 51 , BUN/Creatinine Ratio 18, Glucose Level 133H, Calcium Level 9.5, Magnesium Level 1.8, Total Bilirubin 0.8, Aspartate Amino Transf (AST/SGOT) 39H, Alanine Aminotransferase (ALT/SGPT) 21, Alkaline Phosphatase 87, Troponin I < 0.30, Total Protein 7.6, Albumin 3.6 06/11/16 05:18: White Blood Count 4.4, Red Blood Count 3.44L, Hemoglobin 11.1L, Hematocrit 33L, Mean Corpuscular Volume 97, Mean Corpuscular Hemoglobin 32, Mean Corpuscular Hemoglobin Concent 33, Red Cell Distribution Width 14.0, Platelet Count 196, Mean Platelet Volume 10.1, Neutrophils (%) (Auto) 41L, Lymphocytes (%) (Auto) 35 , Monocytes (%) (Auto) 22H, Eosinophils (%) (Auto) 1, Basophils (%) (Auto) 1, Neutrophils # (Auto) 1.8, Lymphocytes # (Auto) 1.5, Monocytes # (Auto) 1.0, Eosinophils # (Auto) 0.1, Basophils # (Auto) 0.0, Sodium Level 132L, Potassium Level 4.0, Chloride Level 103, Carbon Dioxide Level 22, Anion Gap 7, Blood Urea Nitrogen 17, Creatinine 0.82, Estimat Glomerular Filtration Rate > 60, BUN/ Creatinine Ratio 21, Glucose Level 83, Calcium Level 8.7, Magnesium Level 1.7L, Phosphorus Level 3.0 Radiology PACEMAKER INTERROGATION on 06/11/16: Atrial lead impedance 399 ohms, Vent lead imped 456 ohms, A cap threshold 0.25 V at 0.4 ms, V cap threshold 0.75V at 0.4 ms, R wasfe 2 mv, P wave 2.6 mv. Changes made: V sens changed form 0.9 mV to 0.6 mV (made more sensitive) A/P-Cardiology Assessment/Admission Diagnosis Syncope of undetermined etiology, possibly related to hypotension, has approx 25 bp drop with posture change from recumbent to standing today Multiple myeloma diagnosed in Jan 2016. Currently on chemo, directed by Dr Dunham. Has lost 10 lbs in mid May 2016 PPM implanted in April 2015 per pt report by Dr. Shea at [facility] in [place], [place] d /t bradycardia. It is functioning normally on interrogation carried out today ( see details above and on the printout) Paroxysmal a-fib, followed by Dr. Shea at [facility]. Pacemaker interrogation of shows an AF burden of 3.4% (12/31/15 to 06/11/16) Chronic OAC with Xarelto HTN Hypertriglyceridemia MPI in October [address] Aviles at [facility] in [place], [place] which she reports was OK S/P left knee replacement by Dr. Yanez in Oct 2015 Discussion and Recomendations * We recommend eval for TIA (Dr Amado) * We recommend d/c amlodipine and reduction of losartan to reduce chances of postural hypotension * We recommend close outpatient f/u with her pcp and with her ed educational aide Clinical Quality Measures DVT/VTE Risk/Contraindication: Risk Factor Score Per Nursin RFS Level Per Nursing on Admit: 4+=Very High MARIO PETERS MD FACP FAC CCDS Jun 11, 2016 10:25
--- NOTE | 2016-06-11 11:55 | Short Stay Summary-Hospitalist ---
HPI History of Present Illness: HPI/Chief Complaint CC: Syncope HPI: This is a 80-year-old white female with a past medical history of multiple myeloma treated by Dr. Tamayo and permanent pacemaker placement managed by [facility] cardiology the presents to the ER after a witnessed syncopal episode at the dinner table with her family. Apparently she was assessed by EMS after they were called 5 minutes afterwards and she did regain consciousness and there was a question whether she had hypotension at that time. Patient also having right ear wax issues that was removed by Dr. Tamayo last week but still having difficulty hearing out of the ear but she denies any significant dizziness and she asked several times about what she could do with her ear and I told her that was likely not related the syncopal episode to follow-up with Dr. Palma to evaluate that and resolved that issue. At this current time patient is pleased that she will be able to go home and Dr. Bowman evaluated the patient and interrogated her pacemaker which was normal changed a few of her blood pressure medications and she will check her blood pressure twice daily and follow with Dr. Palma this week. Source: patient Exam Limitations: no limitations Date Seen 06/11/16 Attending Physician Willa Amado DO PCP Remigio Palma DO Referring Physician Date of Admission Jun 10, 2016 at 21:12 Home Medications & Allergies Home Medications Reviewed patient Home Medication Reconciliation Form Allergies Allergies Coded Allergies No Known Drug Allergies (Unverified11/11/15) Past Qkirfra-Ofvgjf-Mygcpd Hx Patient Social History Marrital Status: Employed/Student: retired Alcohol Use: Denies Use Recreational Drug Use: No Smoking Status: Never a Smoker Physical Abuse Screen: No Sexual Abuse: No Recent Foreign Travel: No Contact w/other who traveled: No Recent Hopitalizations: No Recent Infectious Disease Expo: No Immunizations Up To Date Tetanus Booster (TDap): Less than 5yrs Date of Pneumonia Vaccine: Nov 09, 2011 Date of Influenza Vaccine: Nov 11, 2015 Seasonal Allergies Seasonal Allergies: Yes Surgeries HX Surgeries: Yes (right TKR, rectal fistula) Surgeries: Pacemaker Respiratory Hx Respiratory Disorders: No Cardiovascular Hx Cardiovascular Disorders: Yes (pacemaker) Cardiac Disorders: High Cholesterol, Hypertension Neurological Hx Neurological Disorders: No Genitourinary Hx Genitourinary Disorders: No Gastrointestinal Hx Gastrointestinal Disorders: No Musculoskeletal Hx Musculoskeletal Disorders: Yes Musculoskeletal Disorders: Arthritis Endocrine Hx Endocrine Disorders: No HEENT HX ENT Disorders: Yes (cataracts removed, glasses, full set of dentures) Cancer Hx Cancer: Yes Cancer: Bone, Melanoma Psychosocial Hx Psychiatric Problems: No Integumentary HX Skin/Integumentary Disorder: No Blood Transfusions Hx Blood Disorders: No Reviewed Nursing Assessment Reviewed/Agree w Nursing PMH: Yes Family Medical History Family Hx: Arthritis 19 FATHER 19 MOTHER G8 BROTHER G8 SISTER Cardiovascular disease 19 FATHER Hypertension 19 FATHER 19 MOTHER G8 BROTHER G8 SISTER Kidney disease G8 SISTER Myocardial infarction 19 FATHER Review of Systems Constitutional: see HPI, malaise, weakness EENTM: no symptoms reported Respiratory: no symptoms reported Cardiovascular: no symptoms reported Gastrointestinal: no symptoms reported Genitourinary: no symptoms reported Musculoskeletal: no symptoms reported Skin: no symptoms reported Psychiatric/Neurological: No Symptoms Reported All Other Systems Reviewed Negative Unless Noted: Yes Physical Exam Physical Exam Vital Signs Vital Sign - Last 12Hours 06/10/16 06/10/16 19:35 22:20 Temp 98.2 Pulse 63 Resp 18 B/P (MAP) 161/93 Pulse Ox 96 O2 Delivery Room Air Capillary Refill : Less Than 3 SecondsLess Than 3 Seconds General Appearance: No Apparent Distress, WD/WN, Chronically ill Eyes: Bilateral Eye Normal Inspection, Bilateral Eye PERRL HEENT: PERRL/EOMI, Normal ENT Inspection, Pharynx Normal Neck: Full Range of Motion, Normal Inspection, Non Tender, Supple, Carotid Bruit Respiratory: Chest Non Tender, Lungs Clear, Normal Breath Sounds, No Accessory Muscle Use, No Respiratory Distress Cardiovascular: Regular Rate, Rhythm, No Edema, No Gallop, No JVD, No Murmur, Normal Peripheral Pulses Gastrointestinal: Normal Bowel Sounds, No Organomegaly, No Pulsatile Mass, Non Tender, Soft Back: Normal Inspection, No CVA Tenderness, No Vertebral Tenderness Extremity: Normal Capillary Refill, Normal Inspection, Normal Range of Motion, Non Tender, No Calf Tenderness, No Pedal Edema Neurologic/Psychiatric: Alert, Oriented x3, No Motor/Sensory Deficits, Normal Mood/Affect Skin: Normal Color, Warm/Dry Lymphatic: No Adenopathy Results Results/Procedures Lab Laboratory Tests 06/10/16 19:40 06/11/16 05:18 Short Stay Diagnosis Discharge Diagnosis-Short Stay Admission Diagnosis Assessment: Syncope with hypotension adjusting blood pressure medication Permanent pacemaker placement due to rhythm problems Hypertension as an outpatient Multiple myeloma Final Discharge Diagnosis Assessment: Syncope with hypotension adjusting blood pressure medication Permanent pacemaker placement due to rhythm problems Hypertension as an outpatient Multiple myeloma Conclusion Plan Plan: Adjustment of blood pressure medication has been done. Dr. Bowman's input is appreciated Reconcile the rest of her home medication Check blood pressure twice a day and bring logbook to Dr. Palma this week for follow-up Clinical Quality Measures DVT/VTE Risk/Contraindication: Risk Factor Score Per Nursin RFS Level Per Nursing on Admit: 4+=Very High WILLA AMADO DO Jun 11, 2016 11:55
[2016-06-11] MEDS ORDERED: MONTELUKAST 10 MG (SINGULAIR) TAB PO PRN (12:15)
[2016-06-11] MEDS ORDERED: LOSA50TA36 PO ×2 (12:17)
[2016-06-11 12:22] VITALS: BP 112/92
[2016-06-11] MEDS ORDERED: ACYCLOVIR 400 MG TABLET (ZOVIRAX) PO SCH (13:00)
[2016-06-11 13:40] VITALS: BP 112/92
[2016-06-11] MEDS ORDERED: ALPRAZolam 0.5 MG (XANAX) TAB PO SCH (21:00)
--- NOTE | 2016-06-12 06:49 | ECHOCARDIOGRAPHY REPORT ---
DATE OF SERVICE: 06/11/2016 DATE OF PROCEDURE: 06/11/2016. PROCEDURE: Two-dimensional echocardiogram. ORDERING PHYSICIAN: Dr. Bowman. PRIMARY CARE PHYSICIAN: Dr. Nicole. CLINICAL DIAGNOSIS: Syncope. MEASUREMENTS: 1. LV diameter in diastole 3.9. 2. IVS thickness, diastolic, 1.4. 3. LVPW thickness, diastolic, 1.4. 4. Aortic root 3.3. 5. Left atrium 3.7. DESCRIPTION: Two-dimensional echocardiography shows normal global left ventricular systolic function without any distinctive region wall motion abnormality. Aortic, mitral, and tricuspid valve leaflets shows good leaflet excursion. There is mild mitral annular calcification. There is mild aortic valve sclerosis. Echodense structures within the right heart are consistent with pacemaker lead/leads. Doppler imaging does not indicate evidence of valvular stenosis. Mitral inflow is consistent with grade 1 diastolic dysfunction of the left ventricle. Doppler imaging shows mild mitral regurgitation. There is no evidence of any significant intracardiac shunt on this transthoracic echocardiographic study. Inferior vena cava appears to be of normal size and exhibits normal inspiratory collapse. Pulmonary artery systolic pressure is estimated to be 30-35 mmHg. CONCLUSIONS: 1. Mild concentric left ventricular hypertrophy. 2. Normal global left ventricular systolic function with ejection fraction approximately 65%. 3. Mild aortic valve sclerosis and mitral annular calcification without evidence of significant valvular stenosis. 4. Mild mitral regurgitation. 5. Mild diastolic dysfunction left ventricle. 6. Pulmonary artery systolic pressure is estimated at 30-35 mmHg. Job ID: [id number] DocumentID: [id number] Dictated Date: 06/11/2016 10:11:07 Support Manager Date: 06/11/2016 11:17:47 Dictated By: MARIO BOWMAN MD, MA, FACP, FACC,
[2016-06-12] MEDS ORDERED: PANTOPRAZOLE 20 MG TABLET (PROTONIX) PO SCH (07:00)
[2016-06-12] MEDS ORDERED: RIVAROXABAN 15 MG TABLET (XARELTO) PO SCH (09:00)
[2016-06-12] MEDS ORDERED: MAGNESIUM OXIDE (MAG-OX)400 MG TAB PO SCH (09:00)
[2016-06-12] MEDS ORDERED: SOTALOL 80 MG (BETAPACE) TAB PO SCH (09:00)
== END 2016-06-11 12:42 | disposition home or self-care (01) ==
LOC: EDUNIT# 19:33 → ER 19:35 → ICU 21:12 → UNDOADMOB 21:12 → ICU 22:25 → UNDODISOB 06-11 13:40
PROVIDERS: ADMIT Internal Medicine; ATTEND Internal Medicine
DX: R55 Syncope and collapse (principal); I95.9 Hypotension, unspecified; I48.0 Paroxysmal atrial fibrillation; C90.00 Multiple myeloma not having achieved remission; I10 Essential (primary) hypertension; E78.1 Pure hyperglyceridemia; Z95.0 Presence of cardiac pacemaker; Z79.01 Long term (current) use of anticoagulants; Z96.651 Presence of right artificial knee joint
CPT/HCPCS: 36415; 70450; 71010; 80048; 80053; 83735; 84100; 84484; 85025; 85610; 85730; 93005; 93306; G0378

== ENCOUNTER → 2016-06-13 | Outpatient (RCR) | payer MEDICARE ==
--- OUTSIDE RECORDS SUMMARY | 2016-03-15 12:42 | XMS REPORT | Continuity of Care Document ---
Author Author [facility] Organization [facility] Address Unknown Phone Unavailable Care Team Providers Care Rheumatologist Name Role Phone NATANAEL ROBERT DO PCP Insurance Providers Payer Name Policy Number Subscriber Name Relationship Wps Medicare [id number] Erlinda Ballard 18 Self / Same As Patient Blue Cross Mcr Supp [id number] Erlinda Ballard 18 Self / Same As Patient Advance Directives Directive Response Recorded Date/Time Advance Directives No 10/26/15 10:29am Health Care Power of Mailing Machine Assistant No 10/26/15 10:29am Organ Donor Yes 10/26/15 [...] 1.00 inches 10/26/2015 10:29am Height (Calculated Centimeters) 154.110144 cm 10/26/2015 10:29am Weight (Pounds) 160 pounds 10/26/2015 10:29am Weight (Ounces) 6.0 oz 10/26/2015 10:29am Weight (Calculated Grams) 17153.88 gm 10/26/2015 10:29am Weight (Calculated Kilograms) 72.676233 kilograms 10/26/2015 10:29am Calculated BMI 30.3 10/26/2015 [...] SELECTED GROUPS OF HIGH RISK PATIENTS. SIXTH [place] [employer] OF CHEST PHYSICIANS CONSENSUS CONFERENCE ON ANTITHROMBOTIC THERAPY (2000). Urine Color YELLOW 10/26/2015 11:53am 10/26/2015 12:21pm Urine Clarity CLEAR 10/26/2015 11:53am 10/26/2015 12:21pm Urine pH 7 5-9 10/26/2015 11:53am 10/26/2015 12:21pm Urine Specific [place] 1.005 * 1.016-1.022 10/26/2015 11:53am 2015 12:21pm [...] Discharge/Depart Date Attending Provider Departed Clinic [facility] 10/26/15 10:11am 10/26/15 11: 30am URIAH PINA DO
[2016-03-15 14:09] LABS: BASOPHILS % (AUTO) 0 % (0-10); EOSINOPHILS # (AUTO) 0.1 10^3/uL (0.0-0.3); EOSINOPHILS % (AUTO) 2 % (0-10); LYMPHOCYTES # (AUTO) 2.4 X 10^3 (1.0-4.0); LYMPHOCYTES % (AUTO) 41 % (12-44); MEAN CORPUSCULAR HEMOGLOBIN 32 PG (25-34); MEAN CORPUSCULAR HGB CONC 33 G/DL (32-36); MEAN CORPUSCULAR VOLUME 97 FL (80-99); MEAN PLATELET VOLUME 9.5 FL (7.4-10.4); MONOCYTES # (AUTO) 0.7 X 10^3 (0.0-1.0); MONOCYTES % (AUTO) 11 % (0-12); NEUTROPHILS # (AUTO) 2.7 X 10^3 (1.8-7.8); NEUTROPHILS % (AUTO) 46 % (42-75); PLATELET COUNT 311 10^3/uL (130-400); RED BLOOD COUNT 3.84 10^6/uL (4.35-5.85); RED CELL DISTRIBUTION WIDTH 14.4 % (10.0-14.5); WHITE BLOOD COUNT 5.8 10^3/uL (4.3-11.0)
[2016-03-15 14:30] LABS: PEP REPORT SEE PATH REPORT
[2016-03-15 14:54] LABS: ALBUMIN 3.3 G/DL (3.2-4.5); BILIRUBIN,TOTAL 0.8 MG/DL (0.1-1.0); CALCIUM 10.7 MG/DL (8.5-10.1); CREATININE SERUM 0.94 MG/DL (0.60-1.30); POTASSIUM 4.5 MMOL/L (3.6-5.0); TOTAL PROTEIN 10.5 G/DL (6.4-8.2)
[2016-03-15 15:15] LABS: THYROID STIMULATING HORMONE 2.35 UIU/ML (0.35-4.94)
[2016-03-16 05:27] LABS: LIGHT CHAIN KAPPA SERUM QUANT 773.18 mg/L (3.30-19.40); LIGHT CHAIN LAMBDA SERUM QUANT 8.51 mg/L (5.71-26.30)
[2016-03-16 05:32] LABS: IMMUNOGLOBULIN IGA 58 mg/dL (71-263); IMMUNOGLOBULIN IGG 5749 mg/dL (672-1680)
[2016-03-16 08:55] LABS: IMMUNOGLOBULIN IGM <10 mg/dL (47-209)
[2016-03-17 07:35] LABS: CLIN PATHOLOGY REPORT FOOTNOTE; SERUM PROTEIN ELEC DETAIL L-17-0001114
[2016-04-19 14:16] LABS: BASOPHILS % (AUTO) 0 % (0-10); EOSINOPHILS # (AUTO) 0.1 10^3/uL (0.0-0.3); EOSINOPHILS % (AUTO) 2 % (0-10); LYMPHOCYTES # (AUTO) 1.6 X 10^3 (1.0-4.0); LYMPHOCYTES % (AUTO) 28 % (12-44); MEAN CORPUSCULAR HGB CONC 33 G/DL (32-36); MEAN CORPUSCULAR VOLUME 98 FL (80-99); MEAN PLATELET VOLUME 8.8 FL (7.4-10.4); MONOCYTES # (AUTO) 0.7 X 10^3 (0.0-1.0); MONOCYTES % (AUTO) 13 % (0-12); NEUTROPHILS # (AUTO) 3.3 X 10^3 (1.8-7.8); NEUTROPHILS % (AUTO) 57 % (42-75); PLATELET COUNT 275 10^3/uL (130-400); RED BLOOD COUNT 3.57 10^6/uL (4.35-5.85); RED CELL DISTRIBUTION WIDTH 13.2 % (10.0-14.5); WHITE BLOOD COUNT 5.8 10^3/uL (4.3-11.0)
[2016-04-19 14:19] LABS: MEAN CORPUSCULAR HEMOGLOBIN 32 PG (25-34)
[2016-04-19 14:55] LABS: ALANINE AMINOTRANSFERASE 20 U/L (0-55); ALBUMIN 3.2 G/DL (3.2-4.5); ANION GAP 6 MMOL/L (5-14); ASPARTATE AMINO TRANSFERASE 33 U/L (5-34); BILIRUBIN,TOTAL 0.5 MG/DL (0.1-1.0); BLOOD UREA NITROGEN 19 MG/DL (7-18); BUN/CREATININE RATIO 22; CALCIUM 10.3 MG/DL (8.5-10.1); CARBON DIOXIDE 21 MMOL/L (21-32); CHLORIDE 98 MMOL/L (98-107); CREATININE SERUM 0.85 MG/DL (0.60-1.30); GFR ESTIMATED > 60; GLUCOSE 102 MG/DL (70-105); POTASSIUM 5.1 MMOL/L (3.6-5.0); TOTAL PROTEIN 10.3 G/DL (6.4-8.2)
[2016-04-19 14:56] LABS: SODIUM 125 MMOL/L (135-145)
[2016-04-20 05:14] LABS: IMMUNOGLOBULIN IGA 51 mg/dL (71-263); IMMUNOGLOBULIN IGG 1852 mg/dL (672-1680)
[2016-04-20 07:39] LABS: IMMUNOGLOBULIN IGM <10 mg/dL (47-209)
[2016-05-03 14:04] LABS: BASOPHILS % (AUTO) 0 % (0-10); EOSINOPHILS % (AUTO) 0 % (0-10); LYMPHOCYTES # (AUTO) 0.4 X 10^3 (1.0-4.0); LYMPHOCYTES % (AUTO) 10 % (12-44); MEAN CORPUSCULAR HEMOGLOBIN 32 PG (25-34); MEAN CORPUSCULAR HGB CONC 33 G/DL (32-36); MEAN CORPUSCULAR VOLUME 99 FL (80-99); MONOCYTES # (AUTO) 0.1 X 10^3 (0.0-1.0); MONOCYTES % (AUTO) 1 % (0-12); NEUTROPHILS # (AUTO) 3.8 X 10^3 (1.8-7.8); NEUTROPHILS % (AUTO) 89 % (42-75); PLATELET COUNT 303 10^3/uL (130-400); RED BLOOD COUNT 3.64 10^6/uL (4.35-5.85); RED CELL DISTRIBUTION WIDTH 13.6 % (10.0-14.5); WHITE BLOOD COUNT 4.3 10^3/uL (4.3-11.0)
[2016-05-03 14:36] LABS: ALANINE AMINOTRANSFERASE 19 U/L (0-55); ALBUMIN 3.4 G/DL (3.2-4.5); ANION GAP 5 MMOL/L (5-14); ASPARTATE AMINO TRANSFERASE 30 U/L (5-34); BILIRUBIN,TOTAL 0.4 MG/DL (0.1-1.0); BLOOD UREA NITROGEN 18 MG/DL (7-18); BUN/CREATININE RATIO 21; CALCIUM 8.4 MG/DL (8.5-10.1); CARBON DIOXIDE 19 MMOL/L (21-32); CHLORIDE 97 MMOL/L (98-107); CREATININE SERUM 0.86 MG/DL (0.60-1.30); GFR ESTIMATED > 60; GLUCOSE 113 MG/DL (70-105); POTASSIUM 4.8 MMOL/L (3.6-5.0); TOTAL PROTEIN 9.8 G/DL (6.4-8.2)
[2016-05-03 14:46] LABS: SODIUM 121 MMOL/L (135-145)
[2016-05-10 13:53] LABS: BASOPHILS % (AUTO) 0 % (0-10); EOSINOPHILS % (AUTO) 0 % (0-10); LYMPHOCYTES # (AUTO) 0.2 X 10^3 (1.0-4.0); LYMPHOCYTES % (AUTO) 5 % (12-44); MEAN CORPUSCULAR HEMOGLOBIN 33 PG (25-34); MEAN CORPUSCULAR HGB CONC 35 G/DL (32-36); MEAN CORPUSCULAR VOLUME 96 FL (80-99); MEAN PLATELET VOLUME 8.9 FL (7.4-10.4); MONOCYTES # (AUTO) 0.1 X 10^3 (0.0-1.0); MONOCYTES % (AUTO) 2 % (0-12); NEUTROPHILS # (AUTO) 4.2 X 10^3 (1.8-7.8); NEUTROPHILS % (AUTO) 94 % (42-75); PLATELET COUNT 222 10^3/uL (130-400); RED BLOOD COUNT 3.43 10^6/uL (4.35-5.85); WHITE BLOOD COUNT 4.5 10^3/uL (4.3-11.0)
[2016-05-10 14:19] LABS: CREATININE SERUM 1.09 MG/DL (0.60-1.30); POTASSIUM 4.8 MMOL/L (3.6-5.0)
[2016-05-10 14:20] LABS: ALBUMIN 3.5 G/DL (3.2-4.5); BILIRUBIN,TOTAL 0.6 MG/DL (0.1-1.0); CALCIUM 8.3 MG/DL (8.5-10.1); TOTAL PROTEIN 8.9 G/DL (6.4-8.2)
[2016-05-12 14:43] LABS: BASOPHILS % (AUTO) 0 % (0-10); EOSINOPHILS % (AUTO) 0 % (0-10); LYMPHOCYTES # (AUTO) 0.7 X 10^3 (1.0-4.0); LYMPHOCYTES % (AUTO) 9 % (12-44); MEAN CORPUSCULAR HEMOGLOBIN 33 PG (25-34); MEAN CORPUSCULAR HGB CONC 34 G/DL (32-36); MEAN CORPUSCULAR VOLUME 97 FL (80-99); MEAN PLATELET VOLUME 9.6 FL (7.4-10.4); MONOCYTES # (AUTO) 1.2 X 10^3 (0.0-1.0); MONOCYTES % (AUTO) 16 % (0-12); NEUTROPHILS # (AUTO) 5.6 X 10^3 (1.8-7.8); NEUTROPHILS % (AUTO) 75 % (42-75); PLATELET COUNT 194 10^3/uL (130-400); RED BLOOD COUNT 3.68 10^6/uL (4.35-5.85); RED CELL DISTRIBUTION WIDTH 13.6 % (10.0-14.5); WHITE BLOOD COUNT 7.5 10^3/uL (4.3-11.0)
[2016-05-12 15:17] LABS: ALANINE AMINOTRANSFERASE 18 U/L (0-55); ALBUMIN 3.3 G/DL (3.2-4.5); ANION GAP 5 MMOL/L (5-14); ASPARTATE AMINO TRANSFERASE 28 U/L (5-34); BILIRUBIN,TOTAL 0.5 MG/DL (0.1-1.0); BLOOD UREA NITROGEN 17 MG/DL (7-18); BUN/CREATININE RATIO 20; CALCIUM 8.3 MG/DL (8.5-10.1); CARBON DIOXIDE 17 MMOL/L (21-32); CHLORIDE 105 MMOL/L (98-107); CREATININE SERUM 0.86 MG/DL (0.60-1.30); GFR ESTIMATED > 60; GLUCOSE 120 MG/DL (70-105); MAGNESIUM 1.8 MG/DL (1.8-2.4); POTASSIUM 4.1 MMOL/L (3.6-5.0); SODIUM 127 MMOL/L (135-145); TOTAL PROTEIN 7.7 G/DL (6.4-8.2)
[2016-05-15 13:15] LABS: BASOPHILS % (AUTO) 0 % (0-10); EOSINOPHILS # (AUTO) 0.1 10^3/uL (0.0-0.3); EOSINOPHILS % (AUTO) 2 % (0-10); LYMPHOCYTES # (AUTO) 0.7 X 10^3 (1.0-4.0); LYMPHOCYTES % (AUTO) 22 % (12-44); MEAN CORPUSCULAR HEMOGLOBIN 33 PG (25-34); MEAN CORPUSCULAR HGB CONC 34 G/DL (32-36); MEAN CORPUSCULAR VOLUME 98 FL (80-99); MEAN PLATELET VOLUME 9.3 FL (7.4-10.4); MONOCYTES # (AUTO) 0.6 X 10^3 (0.0-1.0); MONOCYTES % (AUTO) 19 % (0-12); NEUTROPHILS # (AUTO) 1.7 X 10^3 (1.8-7.8); NEUTROPHILS % (AUTO) 57 % (42-75); PLATELET COUNT 148 10^3/uL (130-400); RED BLOOD COUNT 3.34 10^6/uL (4.35-5.85); RED CELL DISTRIBUTION WIDTH 13.9 % (10.0-14.5)
[2016-05-15 13:45] LABS: ALANINE AMINOTRANSFERASE 15 U/L (0-55); ALBUMIN 3.3 G/DL (3.2-4.5); ANION GAP 5 MMOL/L (5-14); ASPARTATE AMINO TRANSFERASE 29 U/L (5-34); BILIRUBIN,TOTAL 0.7 MG/DL (0.1-1.0); BLOOD UREA NITROGEN 7 MG/DL (7-18); BUN/CREATININE RATIO 8; CALCIUM 8.4 MG/DL (8.5-10.1); CARBON DIOXIDE 22 MMOL/L (21-32); CHLORIDE 103 MMOL/L (98-107); CREATININE SERUM 0.83 MG/DL (0.60-1.30); GFR ESTIMATED > 60; GLUCOSE 117 MG/DL (70-105); POTASSIUM 3.5 MMOL/L (3.6-5.0); SODIUM 130 MMOL/L (135-145); TOTAL PROTEIN 7.7 G/DL (6.4-8.2)
[2016-05-18 14:57] LABS: BASOPHILS % (AUTO) 1 % (0-10); EOSINOPHILS # (AUTO) 0.1 10^3/uL (0.0-0.3); EOSINOPHILS % (AUTO) 1 % (0-10); LYMPHOCYTES # (AUTO) 0.5 X 10^3 (1.0-4.0); LYMPHOCYTES % (AUTO) 15 % (12-44); MEAN CORPUSCULAR HEMOGLOBIN 33 PG (25-34); MEAN CORPUSCULAR HGB CONC 33 G/DL (32-36); MEAN CORPUSCULAR VOLUME 98 FL (80-99); MEAN PLATELET VOLUME 9.1 FL (7.4-10.4); MONOCYTES # (AUTO) 0.9 X 10^3 (0.0-1.0); MONOCYTES % (AUTO) 26 % (0-12); NEUTROPHILS % (AUTO) 57 % (42-75); PLATELET COUNT 244 10^3/uL (130-400); RED BLOOD COUNT 3.42 10^6/uL (4.35-5.85); RED CELL DISTRIBUTION WIDTH 14.5 % (10.0-14.5); WHITE BLOOD COUNT 3.5 10^3/uL (4.3-11.0)
[2016-05-18 15:31] LABS: ALANINE AMINOTRANSFERASE 23 U/L (0-55); ALBUMIN 3.5 G/DL (3.2-4.5); ANION GAP 8 MMOL/L (5-14); ASPARTATE AMINO TRANSFERASE 47 U/L (5-34); BILIRUBIN,TOTAL 0.7 MG/DL (0.1-1.0); BLOOD UREA NITROGEN 9 MG/DL (7-18); BUN/CREATININE RATIO 11; CALCIUM 8.9 MG/DL (8.5-10.1); CARBON DIOXIDE 22 MMOL/L (21-32); CHLORIDE 107 MMOL/L (98-107); CREATININE SERUM 0.84 MG/DL (0.60-1.30); GFR ESTIMATED > 60; GLUCOSE 112 MG/DL (70-105); POTASSIUM 3.3 MMOL/L (3.6-5.0); SODIUM 137 MMOL/L (135-145)
[2016-05-23 15:16] LABS: BASOPHILS % (AUTO) 1 % (0-10); EOSINOPHILS % (AUTO) 1 % (0-10); LYMPHOCYTES # (AUTO) 1.2 X 10^3 (1.0-4.0); LYMPHOCYTES % (AUTO) 39 % (12-44); MEAN CORPUSCULAR HEMOGLOBIN 33 PG (25-34); MEAN CORPUSCULAR HGB CONC 34 G/DL (32-36); MEAN CORPUSCULAR VOLUME 96 FL (80-99); MEAN PLATELET VOLUME 9.2 FL (7.4-10.4); MONOCYTES # (AUTO) 0.8 X 10^3 (0.0-1.0); MONOCYTES % (AUTO) 25 % (0-12); NEUTROPHILS % (AUTO) 34 % (42-75); PLATELET COUNT 290 10^3/uL (130-400); RED BLOOD COUNT 3.69 10^6/uL (4.35-5.85)
[2016-05-23 15:38] LABS: ALANINE AMINOTRANSFERASE 22 U/L (0-55); ALBUMIN 3.5 G/DL (3.2-4.5); ANION GAP 5 MMOL/L (5-14); ASPARTATE AMINO TRANSFERASE 44 U/L (5-34); BILIRUBIN,TOTAL 0.5 MG/DL (0.1-1.0); BLOOD UREA NITROGEN 8 MG/DL (7-18); BUN/CREATININE RATIO 10; CALCIUM 8.8 MG/DL (8.5-10.1); CARBON DIOXIDE 26 MMOL/L (21-32); CHLORIDE 99 MMOL/L (98-107); CREATININE SERUM 0.77 MG/DL (0.60-1.30); GFR ESTIMATED > 60; GLUCOSE 89 MG/DL (70-105); POTASSIUM 3.4 MMOL/L (3.6-5.0); SODIUM 130 MMOL/L (135-145); TOTAL PROTEIN 7.8 G/DL (6.4-8.2)
[2016-05-24 05:19] LABS: IMMUNOGLOBULIN IGA 22 mg/dL (71-263); IMMUNOGLOBULIN IGG 2669 mg/dL (672-1680)
[2016-05-24 07:31] LABS: IMMUNOGLOBULIN IGM <10 mg/dL (47-209)
[2016-05-29 14:27] LABS: BASOPHILS % (AUTO) 1 % (0-10); EOSINOPHILS % (AUTO) 1 % (0-10); LYMPHOCYTES # (AUTO) 1.6 X 10^3 (1.0-4.0); LYMPHOCYTES % (AUTO) 36 % (12-44); MEAN CORPUSCULAR HEMOGLOBIN 32 PG (25-34); MEAN CORPUSCULAR HGB CONC 32 G/DL (32-36); MEAN CORPUSCULAR VOLUME 97 FL (80-99); MONOCYTES # (AUTO) 0.7 X 10^3 (0.0-1.0); MONOCYTES % (AUTO) 16 % (0-12); NEUTROPHILS # (AUTO) 2.1 X 10^3 (1.8-7.8); NEUTROPHILS % (AUTO) 47 % (42-75); PLATELET COUNT 338 10^3/uL (130-400); RED CELL DISTRIBUTION WIDTH 14.1 % (10.0-14.5); WHITE BLOOD COUNT 4.5 10^3/uL (4.3-11.0)
[2016-05-29 15:02] LABS: ALBUMIN 3.6 G/DL (3.2-4.5); BILIRUBIN,TOTAL 0.6 MG/DL (0.1-1.0); CALCIUM 8.7 MG/DL (8.5-10.1); CREATININE SERUM 0.93 MG/DL (0.60-1.30); POTASSIUM 3.8 MMOL/L (3.6-5.0); TOTAL PROTEIN 8.1 G/DL (6.4-8.2)
--- NOTE | 2016-05-29 15:35 | Diagnostic Imaging Report ---
EXAMINATION: CHEST, PA/LAT (2 VIEW). INDICATION: Cough. COMPARISON: 10/26/2015. FINDINGS: No focal pneumonic consolidation, pleural effusion, or pneumothorax. Normal heart size and pulmonary vasculature. Stable left pectoral transvenous dual-chamber pacemaker. Age-related degenerative changes in the thoracic spine are similar. IMPRESSION: No acute cardiopulmonary process. Dictated by: Dictated on workstation # [id number]
[2016-06-06 14:50] LABS: BASOPHILS % (AUTO) 0 % (0-10); EOSINOPHILS # (AUTO) 0.1 10^3/uL (0.0-0.3); EOSINOPHILS % (AUTO) 1 % (0-10); LYMPHOCYTES # (AUTO) 1.7 X 10^3 (1.0-4.0); LYMPHOCYTES % (AUTO) 31 % (12-44); MEAN CORPUSCULAR HEMOGLOBIN 32 PG (25-34); MEAN CORPUSCULAR HGB CONC 33 G/DL (32-36); MEAN CORPUSCULAR VOLUME 97 FL (80-99); MONOCYTES % (AUTO) 19 % (0-12); NEUTROPHILS # (AUTO) 2.6 X 10^3 (1.8-7.8); NEUTROPHILS % (AUTO) 49 % (42-75); PLATELET COUNT 350 10^3/uL (130-400); RED CELL DISTRIBUTION WIDTH 13.8 % (10.0-14.5); WHITE BLOOD COUNT 5.4 10^3/uL (4.3-11.0)
[2016-06-06 15:17] LABS: ALBUMIN 3.8 G/DL (3.2-4.5); BILIRUBIN,TOTAL 0.9 MG/DL (0.1-1.0); CALCIUM 9.1 MG/DL (8.5-10.1); CREATININE SERUM 0.9 MG/DL (0.60-1.30); POTASSIUM 3.6 MMOL/L (3.6-5.0)
[~2016-06-13] VITALS: Ht 154.9 cm; Wt 71.7 kg
[~2016-06-13] MED LIST changes: +ACYC400T PO; +ALPR0.5T7 PO; +BORTEZOMIB 3.5 MG VELCADE SC SCH; +DENOSUMAB 120 MG/1.7 ML (XGEVA) SQ SCH; +DEXA4TAB; +LOSA50TA36 PO; +METR500T21 PO; +ZOLEDRONIC ACID (CANCER CTR) 4 MG in NS (IVPB) CANCER CENTER 100 ML IV SCH
[2016-06-13 14:34] LABS: BASOPHILS % (AUTO) 0 % (0-10); EOSINOPHILS # (AUTO) 0.1 10^3/uL (0.0-0.3); EOSINOPHILS % (AUTO) 1 % (0-10); LYMPHOCYTES # (AUTO) 1.6 X 10^3 (1.0-4.0); LYMPHOCYTES % (AUTO) 32 % (12-44); MEAN CORPUSCULAR HEMOGLOBIN 33 PG (25-34); MEAN CORPUSCULAR HGB CONC 33 G/DL (32-36); MEAN CORPUSCULAR VOLUME 97 FL (80-99); MEAN PLATELET VOLUME 9.9 FL (7.4-10.4); MONOCYTES # (AUTO) 0.8 X 10^3 (0.0-1.0); MONOCYTES % (AUTO) 17 % (0-12); NEUTROPHILS # (AUTO) 2.5 X 10^3 (1.8-7.8); NEUTROPHILS % (AUTO) 50 % (42-75); PLATELET COUNT 189 10^3/uL (130-400); RED BLOOD COUNT 3.45 10^6/uL (4.35-5.85); RED CELL DISTRIBUTION WIDTH 14.1 % (10.0-14.5)
[2016-06-13 14:52] LABS: ALANINE AMINOTRANSFERASE 18 U/L (0-55); ALBUMIN 3.4 G/DL (3.2-4.5); ANION GAP 7 MMOL/L (5-14); ASPARTATE AMINO TRANSFERASE 30 U/L (5-34); BILIRUBIN,TOTAL 0.8 MG/DL (0.1-1.0); BLOOD UREA NITROGEN 11 MG/DL (7-18); BUN/CREATININE RATIO 13; CARBON DIOXIDE 22 MMOL/L (21-32); CHLORIDE 103 MMOL/L (98-107); CREATININE SERUM 0.83 MG/DL (0.60-1.30); GFR ESTIMATED > 60; GLUCOSE 115 MG/DL (70-105); POTASSIUM 3.6 MMOL/L (3.6-5.0); SODIUM 132 MMOL/L (135-145); TOTAL PROTEIN 6.9 G/DL (6.4-8.2)
== END | disposition home or self-care (01) ==
LOC: ONC 03-15 12:39
PROVIDERS: ATTEND Internal Medicine Hematology & Oncology
DX: Z51.0 Encounter for antineoplastic radiation therapy (principal); Z51.11 Encounter for antineoplastic chemotherapy; C90.00 Multiple myeloma not having achieved remission; I48.91 Unspecified atrial fibrillation; K21.9 Gastro-esophageal reflux disease without esophagitis; Z95.0 Presence of cardiac pacemaker; Z79.01 Long term (current) use of anticoagulants
CPT/HCPCS: 36415; 71020; 77280; 77290; 77295; 77300; 77307; 77332; 77334; 77417; 77470; 80053; 82232; 82784; 83735; 83883; 84155; 84165; 84443; 85025; 96365; 96401; 96402; 99213; 99214

== ENCOUNTER 2016-09-11 13:18 | Outpatient (RCR) | payer MEDICARE ==
[2016-06-20 15:18] LABS: BASOPHILS % (AUTO) 0 % (0-10); EOSINOPHILS # (AUTO) 0.1 10^3/uL (0.0-0.3); EOSINOPHILS % (AUTO) 1 % (0-10); LYMPHOCYTES # (AUTO) 1.4 X 10^3 (1.0-4.0); LYMPHOCYTES % (AUTO) 19 % (12-44); MEAN CORPUSCULAR HEMOGLOBIN 32 PG (25-34); MEAN CORPUSCULAR HGB CONC 34 G/DL (32-36); MEAN CORPUSCULAR VOLUME 97 FL (80-99); MEAN PLATELET VOLUME 10.1 FL (7.4-10.4); MONOCYTES # (AUTO) 1.1 X 10^3 (0.0-1.0); MONOCYTES % (AUTO) 15 % (0-12); NEUTROPHILS # (AUTO) 4.9 X 10^3 (1.8-7.8); NEUTROPHILS % (AUTO) 65 % (42-75); PLATELET COUNT 170 10^3/uL (130-400); RED BLOOD COUNT 3.55 10^6/uL (4.35-5.85); RED CELL DISTRIBUTION WIDTH 15.2 % (10.0-14.5); WHITE BLOOD COUNT 7.4 10^3/uL (4.3-11.0)
[2016-06-20 16:25] LABS: ALANINE AMINOTRANSFERASE 13 U/L (0-55); ALBUMIN 3.6 G/DL (3.2-4.5); ANION GAP 6 MMOL/L (5-14); ASPARTATE AMINO TRANSFERASE 28 U/L (5-34); BLOOD UREA NITROGEN 10 MG/DL (7-18); BUN/CREATININE RATIO 11; CALCIUM 9.1 MG/DL (8.5-10.1); CARBON DIOXIDE 26 MMOL/L (21-32); CHLORIDE 93 MMOL/L (98-107); CREATININE SERUM 0.88 MG/DL (0.60-1.30); GFR ESTIMATED > 60; GLUCOSE 109 MG/DL (70-105); POTASSIUM 3.8 MMOL/L (3.6-5.0)
[2016-06-20 16:35] LABS: SODIUM 125 MMOL/L (135-145)
[2016-07-04 15:05] LABS: BASOPHILS % (AUTO) 1 % (0-10); EOSINOPHILS # (AUTO) 0.1 10^3/uL (0.0-0.3); EOSINOPHILS % (AUTO) 2 % (0-10); LYMPHOCYTES # (AUTO) 0.9 X 10^3 (1.0-4.0); LYMPHOCYTES % (AUTO) 21 % (12-44); MEAN CORPUSCULAR HEMOGLOBIN 33 PG (25-34); MEAN CORPUSCULAR HGB CONC 34 G/DL (32-36); MEAN CORPUSCULAR VOLUME 98 FL (80-99); MEAN PLATELET VOLUME 8.7 FL (7.4-10.4); MONOCYTES # (AUTO) 0.8 X 10^3 (0.0-1.0); MONOCYTES % (AUTO) 18 % (0-12); NEUTROPHILS # (AUTO) 2.6 X 10^3 (1.8-7.8); NEUTROPHILS % (AUTO) 59 % (42-75); PLATELET COUNT 359 10^3/uL (130-400); RED BLOOD COUNT 3.46 10^6/uL (4.35-5.85); RED CELL DISTRIBUTION WIDTH 15.3 % (10.0-14.5); WHITE BLOOD COUNT 4.4 10^3/uL (4.3-11.0)
[2016-07-04 15:32] LABS: ALANINE AMINOTRANSFERASE 14 U/L (0-55); ALBUMIN 3.8 G/DL (3.2-4.5); ANION GAP 4 MMOL/L (5-14); ASPARTATE AMINO TRANSFERASE 27 U/L (5-34); BILIRUBIN,TOTAL 1.2 MG/DL (0.1-1.0); BLOOD UREA NITROGEN 16 MG/DL (7-18); BUN/CREATININE RATIO 19; CALCIUM 9.6 MG/DL (8.5-10.1); CARBON DIOXIDE 26 MMOL/L (21-32); CHLORIDE 94 MMOL/L (98-107); CREATININE SERUM 0.84 MG/DL (0.60-1.30); GFR ESTIMATED > 60; GLUCOSE 124 MG/DL (70-105); POTASSIUM 4.3 MMOL/L (3.6-5.0); TOTAL PROTEIN 7.2 G/DL (6.4-8.2)
[2016-07-04 15:36] LABS: SODIUM 124 MMOL/L (135-145)
[2016-07-05 03:08] LABS: LIGHT CHAIN KAPPA SERUM QUANT 128.93 mg/L (3.30-19.40); LIGHT CHAIN LAMBDA SERUM QUANT 2.33 mg/L (5.71-26.30)
[2016-07-11 14:43] LABS: BASOPHILS % (AUTO) 0 % (0-10); EOSINOPHILS # (AUTO) 0.1 10^3/uL (0.0-0.3); EOSINOPHILS % (AUTO) 1 % (0-10); LYMPHOCYTES # (AUTO) 1.1 X 10^3 (1.0-4.0); LYMPHOCYTES % (AUTO) 18 % (12-44); MEAN CORPUSCULAR HEMOGLOBIN 33 PG (25-34); MEAN CORPUSCULAR HGB CONC 34 G/DL (32-36); MEAN CORPUSCULAR VOLUME 95 FL (80-99); MEAN PLATELET VOLUME 9.8 FL (7.4-10.4); MONOCYTES % (AUTO) 16 % (0-12); NEUTROPHILS # (AUTO) 3.8 X 10^3 (1.8-7.8); NEUTROPHILS % (AUTO) 64 % (42-75); PLATELET COUNT 222 10^3/uL (130-400); RED BLOOD COUNT 3.69 10^6/uL (4.35-5.85); RED CELL DISTRIBUTION WIDTH 14.4 % (10.0-14.5); WHITE BLOOD COUNT 5.9 10^3/uL (4.3-11.0)
[2016-07-11 15:10] LABS: ALANINE AMINOTRANSFERASE 17 U/L (0-55); ALBUMIN 3.6 G/DL (3.2-4.5); ANION GAP 7 MMOL/L (5-14); ASPARTATE AMINO TRANSFERASE 28 U/L (5-34); BILIRUBIN,TOTAL 1.2 MG/DL (0.1-1.0); BLOOD UREA NITROGEN 12 MG/DL (7-18); BUN/CREATININE RATIO 17; CARBON DIOXIDE 24 MMOL/L (21-32); CHLORIDE 95 MMOL/L (98-107); CREATININE SERUM 0.71 MG/DL (0.60-1.30); GFR ESTIMATED > 60; GLUCOSE 100 MG/DL (70-105); POTASSIUM 3.7 MMOL/L (3.6-5.0); SODIUM 126 MMOL/L (135-145); TOTAL PROTEIN 6.9 G/DL (6.4-8.2)
[2016-07-19 15:16] LABS: BASOPHILS % (AUTO) 0 % (0-10); EOSINOPHILS # (AUTO) 0.1 10^3/uL (0.0-0.3); EOSINOPHILS % (AUTO) 1 % (0-10); LYMPHOCYTES # (AUTO) 0.9 X 10^3 (1.0-4.0); LYMPHOCYTES % (AUTO) 12 % (12-44); MEAN CORPUSCULAR HEMOGLOBIN 33 PG (25-34); MEAN CORPUSCULAR HGB CONC 35 G/DL (32-36); MEAN CORPUSCULAR VOLUME 95 FL (80-99); MEAN PLATELET VOLUME 10.2 FL (7.4-10.4); MONOCYTES # (AUTO) 1.2 X 10^3 (0.0-1.0); MONOCYTES % (AUTO) 16 % (0-12); NEUTROPHILS # (AUTO) 5.4 X 10^3 (1.8-7.8); NEUTROPHILS % (AUTO) 71 % (42-75); PLATELET COUNT 211 10^3/uL (130-400); WHITE BLOOD COUNT 7.6 10^3/uL (4.3-11.0)
[2016-07-19 15:44] LABS: ALBUMIN 3.9 G/DL (3.2-4.5); BILIRUBIN,TOTAL 0.9 MG/DL (0.1-1.0); CALCIUM 9.5 MG/DL (8.5-10.1); CREATININE SERUM 0.94 MG/DL (0.60-1.30); POTASSIUM 2.7 MMOL/L (3.6-5.0); TOTAL PROTEIN 7.1 G/DL (6.4-8.2)
[2016-07-25 15:40] LABS: BASOPHILS % (AUTO) 0 % (0-10); EOSINOPHILS # (AUTO) 0.1 10^3/uL (0.0-0.3); EOSINOPHILS % (AUTO) 2 % (0-10); LYMPHOCYTES # (AUTO) 0.9 X 10^3 (1.0-4.0); LYMPHOCYTES % (AUTO) 17 % (12-44); MEAN CORPUSCULAR HEMOGLOBIN 34 PG (25-34); MEAN CORPUSCULAR HGB CONC 34 G/DL (32-36); MEAN CORPUSCULAR VOLUME 97 FL (80-99); MONOCYTES # (AUTO) 0.8 X 10^3 (0.0-1.0); MONOCYTES % (AUTO) 15 % (0-12); NEUTROPHILS # (AUTO) 3.7 X 10^3 (1.8-7.8); NEUTROPHILS % (AUTO) 66 % (42-75); PLATELET COUNT 273 10^3/uL (130-400); RED BLOOD COUNT 3.76 10^6/uL (4.35-5.85); RED CELL DISTRIBUTION WIDTH 15.7 % (10.0-14.5); WHITE BLOOD COUNT 5.5 10^3/uL (4.3-11.0)
[2016-07-25 16:18] LABS: ALANINE AMINOTRANSFERASE 19 U/L (0-55); ALBUMIN 3.8 G/DL (3.2-4.5); ANION GAP 6 MMOL/L (5-14); ASPARTATE AMINO TRANSFERASE 29 U/L (5-34); BILIRUBIN,TOTAL 1.4 MG/DL (0.1-1.0); BLOOD UREA NITROGEN 17 MG/DL (7-18); BUN/CREATININE RATIO 20; CALCIUM 9.8 MG/DL (8.5-10.1); CARBON DIOXIDE 25 MMOL/L (21-32); CHLORIDE 96 MMOL/L (98-107); CREATININE SERUM 0.85 MG/DL (0.60-1.30); GFR ESTIMATED > 60; GLUCOSE 100 MG/DL (70-105); MAGNESIUM 1.9 MG/DL (1.8-2.4); POTASSIUM 5.4 MMOL/L (3.6-5.0); SODIUM 127 MMOL/L (135-145)
[2016-08-02 15:20] LABS: BASOPHILS % (AUTO) 1 % (0-10); EOSINOPHILS # (AUTO) 0.2 10^3/uL (0.0-0.3); EOSINOPHILS % (AUTO) 3 % (0-10); LYMPHOCYTES # (AUTO) 1.2 X 10^3 (1.0-4.0); LYMPHOCYTES % (AUTO) 20 % (12-44); MEAN CORPUSCULAR HEMOGLOBIN 33 PG (25-34); MEAN CORPUSCULAR HGB CONC 34 G/DL (32-36); MEAN CORPUSCULAR VOLUME 99 FL (80-99); MEAN PLATELET VOLUME 9.6 FL (7.4-10.4); MONOCYTES # (AUTO) 0.8 X 10^3 (0.0-1.0); MONOCYTES % (AUTO) 14 % (0-12); NEUTROPHILS # (AUTO) 3.7 X 10^3 (1.8-7.8); NEUTROPHILS % (AUTO) 63 % (42-75); PLATELET COUNT 252 10^3/uL (130-400); RED BLOOD COUNT 3.86 10^6/uL (4.35-5.85); RED CELL DISTRIBUTION WIDTH 15.3 % (10.0-14.5)
[2016-08-02 15:42] LABS: ALANINE AMINOTRANSFERASE 26 U/L (0-55); ALBUMIN 3.7 GM/DL (3.2-4.5); ANION GAP 9 MMOL/L (5-14); ASPARTATE AMINO TRANSFERASE 34 U/L (5-34); BILIRUBIN,TOTAL 0.8 MG/DL (0.1-1.0); BLOOD UREA NITROGEN 13 MG/DL (7-18); BUN/CREATININE RATIO 16 (0-20); CALCIUM 9.2 MG/DL (8.5-10.1); CARBON DIOXIDE 24 MMOL/L (21-32); CHLORIDE 102 MMOL/L (98-107); CREATININE SERUM 0.79 MG/DL (0.60-1.30); GFR ESTIMATED > 60; GLUCOSE 125 MG/DL (70-105); HEMOLYSIS 33 (0-29); ICTERUS 0.7 (0-1.9); LIPEMIA 31 (0-49); POTASSIUM 3.7 MMOL/L (3.6-5.0); SODIUM 135 MMOL/L (135-145)
[2016-08-07 13:14] LABS: BASOPHILS # (AUTO) 0.1 10^3/uL (0.0-0.1); BASOPHILS % (AUTO) 1 % (0-10); EOSINOPHILS # (AUTO) 0.2 10^3/uL (0.0-0.3); EOSINOPHILS % (AUTO) 3 % (0-10); LYMPHOCYTES # (AUTO) 1.1 X 10^3 (1.0-4.0); LYMPHOCYTES % (AUTO) 20 % (12-44); MEAN CORPUSCULAR HEMOGLOBIN 33 PG (25-34); MEAN CORPUSCULAR HGB CONC 33 G/DL (32-36); MEAN CORPUSCULAR VOLUME 99 FL (80-99); MEAN PLATELET VOLUME 9.8 FL (7.4-10.4); MONOCYTES % (AUTO) 17 % (0-12); NEUTROPHILS # (AUTO) 3.4 X 10^3 (1.8-7.8); NEUTROPHILS % (AUTO) 59 % (42-75); PLATELET COUNT 215 10^3/uL (130-400); RED CELL DISTRIBUTION WIDTH 15.1 % (10.0-14.5); WHITE BLOOD COUNT 5.8 10^3/uL (4.3-11.0)
[2016-08-07 13:34] LABS: ALANINE AMINOTRANSFERASE 27 U/L (0-55); ALBUMIN 3.8 GM/DL (3.2-4.5); ANION GAP 7 MMOL/L (5-14); ASPARTATE AMINO TRANSFERASE 33 U/L (5-34); BILIRUBIN,TOTAL 0.7 MG/DL (0.1-1.0); BLOOD UREA NITROGEN 9 MG/DL (7-18); BUN/CREATININE RATIO 11 (0-20); CALCIUM 9.3 MG/DL (8.5-10.1); CARBON DIOXIDE 25 MMOL/L (21-32); CHLORIDE 103 MMOL/L (98-107); CREATININE SERUM 0.83 MG/DL (0.60-1.30); GFR ESTIMATED > 60; GLUCOSE 102 MG/DL (70-105); HEMOLYSIS 19 (-100-29); ICTERUS 0.8 (-100-1.9); LIPEMIA 15 (-100-49); POTASSIUM 3.5 MMOL/L (3.6-5.0); SODIUM 135 MMOL/L (135-145); TOTAL PROTEIN 6.7 GM/DL (6.4-8.2)
[2016-08-28 13:41] LABS: BASOPHILS % (AUTO) 1 % (0-10); EOSINOPHILS # (AUTO) 0.1 10^3/uL (0.0-0.3); EOSINOPHILS % (AUTO) 2 % (0-10); LYMPHOCYTES # (AUTO) 1.2 X 10^3 (1.0-4.0); LYMPHOCYTES % (AUTO) 20 % (12-44); MEAN CORPUSCULAR HEMOGLOBIN 32 PG (25-34); MEAN CORPUSCULAR HGB CONC 33 G/DL (32-36); MEAN CORPUSCULAR VOLUME 98 FL (80-99); MEAN PLATELET VOLUME 9.1 FL (7.4-10.4); MONOCYTES % (AUTO) 16 % (0-12); NEUTROPHILS # (AUTO) 3.7 X 10^3 (1.8-7.8); NEUTROPHILS % (AUTO) 62 % (42-75); PLATELET COUNT 285 10^3/uL (130-400); RED BLOOD COUNT 4.02 10^6/uL (4.35-5.85); RED CELL DISTRIBUTION WIDTH 14.1 % (10.0-14.5)
[2016-08-28 14:05] LABS: ALANINE AMINOTRANSFERASE 22 U/L (0-55); ALBUMIN 3.6 GM/DL (3.2-4.5); ANION GAP 6 MMOL/L (5-14); ASPARTATE AMINO TRANSFERASE 28 U/L (5-34); BILIRUBIN,TOTAL 0.5 MG/DL (0.1-1.0); BLOOD UREA NITROGEN 15 MG/DL (7-18); BUN/CREATININE RATIO 19; CALCIUM 9.3 MG/DL (8.5-10.1); CARBON DIOXIDE 25 MMOL/L (21-32); CHLORIDE 98 MMOL/L (98-107); CREATININE SERUM 0.81 MG/DL (0.60-1.30); GFR ESTIMATED > 60; GLUCOSE 105 MG/DL (70-105); POTASSIUM 4.2 MMOL/L (3.6-5.0); SODIUM 129 MMOL/L (135-145); TOTAL PROTEIN 6.9 GM/DL (6.4-8.2)
[2016-08-29 05:42] LABS: LIGHT CHAIN KAPPA SERUM QUANT 124.7 mg/L (3.30-19.40); LIGHT CHAIN LAMBDA SERUM QUANT 4.98 mg/L (5.71-26.30)
[~2016-09-11] VITALS: Ht 154.9 cm; Wt 64.4 kg
[~2016-09-11 13:18] MED LIST changes: +ALPR0.25 PO; +ASCO10006 PO; +CHOL5000 PO; -DENOSUMAB 120 MG/1.7 ML (XGEVA) SQ SCH; +DEXA4TAB PO; +LACT1CAP39 PO; +LENA20CA PO; +MIRT15TA6 PO; +POTA20TA8 PO
[2016-09-11 14:02] LABS: BASOPHILS % (AUTO) 1 % (0-10); EOSINOPHILS # (AUTO) 0.2 10^3/uL (0.0-0.3); EOSINOPHILS % (AUTO) 4 % (0-10); LYMPHOCYTES # (AUTO) 1.2 X 10^3 (1.0-4.0); LYMPHOCYTES % (AUTO) 24 % (12-44); MEAN CORPUSCULAR HEMOGLOBIN 33 PG (25-34); MEAN CORPUSCULAR HGB CONC 33 G/DL (32-36); MEAN CORPUSCULAR VOLUME 99 FL (80-99); MONOCYTES # (AUTO) 0.8 X 10^3 (0.0-1.0); MONOCYTES % (AUTO) 16 % (0-12); NEUTROPHILS # (AUTO) 2.8 X 10^3 (1.8-7.8); NEUTROPHILS % (AUTO) 55 % (42-75); PLATELET COUNT 302 10^3/uL (130-400); RED BLOOD COUNT 4.06 10^6/uL (4.35-5.85); RED CELL DISTRIBUTION WIDTH 13.5 % (10.0-14.5)
[2016-09-11 14:44] LABS: ALANINE AMINOTRANSFERASE 21 U/L (0-55); ALBUMIN 3.7 GM/DL (3.2-4.5); ANION GAP 5 MMOL/L (5-14); ASPARTATE AMINO TRANSFERASE 27 U/L (5-34); BILIRUBIN,TOTAL 0.7 MG/DL (0.1-1.0); BLOOD UREA NITROGEN 18 MG/DL (7-18); BUN/CREATININE RATIO 24; CARBON DIOXIDE 27 MMOL/L (21-32); CHLORIDE 98 MMOL/L (98-107); CREATININE SERUM 0.74 MG/DL (0.60-1.30); GFR ESTIMATED > 60; GLUCOSE 108 MG/DL (70-105); POTASSIUM 4.5 MMOL/L (3.6-5.0); SODIUM 130 MMOL/L (135-145); TOTAL PROTEIN 7.1 GM/DL (6.4-8.2)
[2016-09-12 03:44] LABS: LIGHT CHAIN KAPPA SERUM QUANT 155.25 mg/L (3.30-19.40); LIGHT CHAIN LAMBDA SERUM QUANT 5.36 mg/L (5.71-26.30)
== END 2016-09-18 | disposition home or self-care (01) ==
LOC: ONC 13:18
PROVIDERS: ATTEND Internal Medicine Hematology & Oncology
DX: C90.00 Multiple myeloma not having achieved remission (principal); I48.91 Unspecified atrial fibrillation; K21.9 Gastro-esophageal reflux disease without esophagitis; Z95.0 Presence of cardiac pacemaker; Z79.01 Long term (current) use of anticoagulants
CPT/HCPCS: 36415; 80053; 82232; 82784; 83735; 83883; 85025; 96365; 96401; 99213

== ENCOUNTER 2016-11-06 14:02 | Outpatient (RCR) | payer MEDICARE ==
[2016-09-25 14:26] LABS: BASOPHILS % (AUTO) 1 % (0-10); EOSINOPHILS # (AUTO) 0.3 10^3/uL (0.0-0.3); EOSINOPHILS % (AUTO) 5 % (0-10); LYMPHOCYTES # (AUTO) 1.1 X 10^3 (1.0-4.0); LYMPHOCYTES % (AUTO) 21 % (12-44); MEAN CORPUSCULAR HEMOGLOBIN 32 PG (25-34); MEAN CORPUSCULAR HGB CONC 33 G/DL (32-36); MEAN CORPUSCULAR VOLUME 99 FL (80-99); MEAN PLATELET VOLUME 9.1 FL (7.4-10.4); MONOCYTES # (AUTO) 0.9 X 10^3 (0.0-1.0); MONOCYTES % (AUTO) 16 % (0-12); NEUTROPHILS # (AUTO) 3.1 X 10^3 (1.8-7.8); NEUTROPHILS % (AUTO) 58 % (42-75); PLATELET COUNT 272 10^3/uL (130-400); RED CELL DISTRIBUTION WIDTH 12.9 % (10.0-14.5); WHITE BLOOD COUNT 5.4 10^3/uL (4.3-11.0)
[2016-09-25 15:04] LABS: ALANINE AMINOTRANSFERASE 18 U/L (0-55); ALBUMIN 3.7 GM/DL (3.2-4.5); ANION GAP 8 MMOL/L (5-14); ASPARTATE AMINO TRANSFERASE 29 U/L (5-34); BILIRUBIN,TOTAL 0.5 MG/DL (0.1-1.0); BLOOD UREA NITROGEN 20 MG/DL (7-18); BUN/CREATININE RATIO 22; CALCIUM 9.4 MG/DL (8.5-10.1); CARBON DIOXIDE 26 MMOL/L (21-32); CHLORIDE 100 MMOL/L (98-107); CREATININE SERUM 0.89 MG/DL (0.60-1.30); GFR ESTIMATED > 60; GLUCOSE 92 MG/DL (70-105); POTASSIUM 4.1 MMOL/L (3.6-5.0); SODIUM 134 MMOL/L (135-145); TOTAL PROTEIN 7.2 GM/DL (6.4-8.2)
[2016-09-26 03:09] LABS: LIGHT CHAIN KAPPA SERUM QUANT 155.16 mg/L (3.30-19.40); LIGHT CHAIN LAMBDA SERUM QUANT 5.16 mg/L (5.71-26.30)
[2016-10-09 14:18] LABS: BASOPHILS % (AUTO) 1 % (0-10); EOSINOPHILS # (AUTO) 0.4 10^3/uL (0.0-0.3); EOSINOPHILS % (AUTO) 7 % (0-10); LYMPHOCYTES # (AUTO) 1.1 X 10^3 (1.0-4.0); LYMPHOCYTES % (AUTO) 17 % (12-44); MEAN CORPUSCULAR HEMOGLOBIN 32 PG (25-34); MEAN CORPUSCULAR HGB CONC 33 G/DL (32-36); MEAN CORPUSCULAR VOLUME 98 FL (80-99); MEAN PLATELET VOLUME 9.8 FL (7.4-10.4); MONOCYTES # (AUTO) 1.1 X 10^3 (0.0-1.0); MONOCYTES % (AUTO) 16 % (0-12); NEUTROPHILS % (AUTO) 59 % (42-75); PLATELET COUNT 252 10^3/uL (130-400); RED BLOOD COUNT 3.99 10^6/uL (4.35-5.85); RED CELL DISTRIBUTION WIDTH 12.6 % (10.0-14.5); WHITE BLOOD COUNT 6.6 10^3/uL (4.3-11.0)
[2016-10-09 14:41] LABS: ALANINE AMINOTRANSFERASE 15 U/L (0-55); ALBUMIN 3.6 GM/DL (3.2-4.5); ANION GAP 6 MMOL/L (5-14); ASPARTATE AMINO TRANSFERASE 28 U/L (5-34); BILIRUBIN,TOTAL 0.6 MG/DL (0.1-1.0); BLOOD UREA NITROGEN 19 MG/DL (7-18); BUN/CREATININE RATIO 24; CALCIUM 9.5 MG/DL (8.5-10.1); CARBON DIOXIDE 26 MMOL/L (21-32); CHLORIDE 103 MMOL/L (98-107); GFR ESTIMATED > 60; GLUCOSE 97 MG/DL (70-105); POTASSIUM 4.3 MMOL/L (3.6-5.0); SODIUM 135 MMOL/L (135-145); TOTAL PROTEIN 7.2 GM/DL (6.4-8.2)
[2016-10-16 14:57] LABS: BASOPHILS % (AUTO) 1 % (0-10); EOSINOPHILS # (AUTO) 0.9 10^3/uL (0.0-0.3); EOSINOPHILS % (AUTO) 14 % (0-10); LYMPHOCYTES # (AUTO) 0.8 X 10^3 (1.0-4.0); LYMPHOCYTES % (AUTO) 11 % (12-44); MEAN CORPUSCULAR HEMOGLOBIN 31 PG (25-34); MEAN CORPUSCULAR HGB CONC 33 G/DL (32-36); MEAN CORPUSCULAR VOLUME 96 FL (80-99); MEAN PLATELET VOLUME 10.9 FL (7.4-10.4); MONOCYTES # (AUTO) 0.5 X 10^3 (0.0-1.0); MONOCYTES % (AUTO) 7 % (0-12); NEUTROPHILS # (AUTO) 4.7 X 10^3 (1.8-7.8); NEUTROPHILS % (AUTO) 67 % (42-75); PLATELET COUNT 232 10^3/uL (130-400); RED BLOOD COUNT 3.93 10^6/uL (4.35-5.85); RED CELL DISTRIBUTION WIDTH 12.4 % (10.0-14.5); WHITE BLOOD COUNT 6.9 10^3/uL (4.3-11.0)
[2016-10-16 15:13] LABS: ALANINE AMINOTRANSFERASE 15 U/L (0-55); ALBUMIN 3.6 GM/DL (3.2-4.5); ANION GAP 9 MMOL/L (5-14); ASPARTATE AMINO TRANSFERASE 25 U/L (5-34); BILIRUBIN,TOTAL 0.5 MG/DL (0.1-1.0); BLOOD UREA NITROGEN 19 MG/DL (7-18); BUN/CREATININE RATIO 23; CALCIUM 10.5 MG/DL (8.5-10.1); CARBON DIOXIDE 23 MMOL/L (21-32); CHLORIDE 104 MMOL/L (98-107); CREATININE SERUM 0.83 MG/DL (0.60-1.30); GFR ESTIMATED > 60; GLUCOSE 127 MG/DL (70-105); POTASSIUM 3.6 MMOL/L (3.6-5.0); SODIUM 136 MMOL/L (135-145); TOTAL PROTEIN 7.3 GM/DL (6.4-8.2)
[2016-11-06 14:23] LABS: BASOPHILS # (AUTO) 0.2 10^3/uL (0.0-0.1); BASOPHILS % (AUTO) 4 % (0-10); EOSINOPHILS # (AUTO) 0.3 10^3/uL (0.0-0.3); EOSINOPHILS % (AUTO) 5 % (0-10); LYMPHOCYTES # (AUTO) 1.4 X 10^3 (1.0-4.0); LYMPHOCYTES % (AUTO) 24 % (12-44); MEAN CORPUSCULAR HEMOGLOBIN 31 PG (25-34); MEAN CORPUSCULAR HGB CONC 32 G/DL (32-36); MEAN CORPUSCULAR VOLUME 96 FL (80-99); MEAN PLATELET VOLUME 9.4 FL (7.4-10.4); MONOCYTES % (AUTO) 18 % (0-12); NEUTROPHILS # (AUTO) 2.8 X 10^3 (1.8-7.8); NEUTROPHILS % (AUTO) 49 % (42-75); PLATELET COUNT 406 10^3/uL (130-400); RED CELL DISTRIBUTION WIDTH 13.6 % (10.0-14.5); WHITE BLOOD COUNT 5.7 10^3/uL (4.3-11.0)
[2016-11-06 15:14] LABS: ALANINE AMINOTRANSFERASE 37 U/L (0-55); ALBUMIN 3.4 GM/DL (3.2-4.5); ANION GAP 7 MMOL/L (5-14); ASPARTATE AMINO TRANSFERASE 29 U/L (5-34); BILIRUBIN,TOTAL 0.3 MG/DL (0.1-1.0); BLOOD UREA NITROGEN 16 MG/DL (7-18); BUN/CREATININE RATIO 20; CALCIUM 9.2 MG/DL (8.5-10.1); CARBON DIOXIDE 25 MMOL/L (21-32); CHLORIDE 107 MMOL/L (98-107); GFR ESTIMATED > 60; GLUCOSE 129 MG/DL (70-105); POTASSIUM 3.6 MMOL/L (3.6-5.0); SODIUM 139 MMOL/L (135-145); TOTAL PROTEIN 6.5 GM/DL (6.4-8.2)
[2016-11-07 04:12] LABS: LIGHT CHAIN KAPPA SERUM QUANT 73.15 mg/L (3.30-19.40); LIGHT CHAIN LAMBDA SERUM QUANT 10.82 mg/L (5.71-26.30)
== END 2016-11-16 11:34 | disposition home or self-care (01) ==
LOC: ONC 14:02
PROVIDERS: ATTEND Internal Medicine Hematology & Oncology
DX: C90.00 Multiple myeloma not having achieved remission (principal); I48.91 Unspecified atrial fibrillation; K21.9 Gastro-esophageal reflux disease without esophagitis; Z95.0 Presence of cardiac pacemaker; Z79.01 Long term (current) use of anticoagulants
CPT/HCPCS: 36415; 80053; 82232; 82784; 83883; 85025; 99213

== ENCOUNTER 2017-01-01 14:34 | Outpatient (RCR) | payer MEDICARE ==
[2016-11-20 15:12] LABS: BASOPHILS # (AUTO) 0.1 10^3/uL (0.0-0.1); BASOPHILS % (AUTO) 1 % (0-10); EOSINOPHILS # (AUTO) 0.6 10^3/uL (0.0-0.3); EOSINOPHILS % (AUTO) 10 % (0-10); HEMATOCRIT 43 % (35-52); HEMOGLOBIN 13.8 G/DL (11.5-16.0); LYMPHOCYTES # (AUTO) 1.4 X 10^3 (1.0-4.0); LYMPHOCYTES % (AUTO) 25 % (12-44); MEAN CORPUSCULAR HEMOGLOBIN 31 PG (25-34); MEAN CORPUSCULAR HGB CONC 32 G/DL (32-36); MEAN CORPUSCULAR VOLUME 95 FL (80-99); MEAN PLATELET VOLUME 10.5 FL (7.4-10.4); MONOCYTES # (AUTO) 0.8 X 10^3 (0.0-1.0); MONOCYTES % (AUTO) 14 % (0-12); NEUTROPHILS # (AUTO) 2.9 X 10^3 (1.8-7.8); NEUTROPHILS % (AUTO) 51 % (42-75); PLATELET COUNT 213 10^3/uL (130-400); RED BLOOD COUNT 4.51 10^6/uL (4.35-5.85); RED CELL DISTRIBUTION WIDTH 13.9 % (10.0-14.5); WHITE BLOOD COUNT 5.8 10^3/uL (4.3-11.0)
[2016-11-20 15:28] LABS: ALANINE AMINOTRANSFERASE 25 U/L (0-55); ALBUMIN 3.8 GM/DL (3.2-4.5); ALKALINE PHOSPHATASE 95 U/L (40-136); BILIRUBIN,TOTAL 0.4 MG/DL (0.1-1.0); BUN/CREATININE RATIO 26; CALCIUM 10.4 MG/DL (8.5-10.1); CARBON DIOXIDE 27 MMOL/L (21-32); CHLORIDE 103 MMOL/L (98-107); CREATININE SERUM 0.89 MG/DL (0.60-1.30); GFR ESTIMATED > 60; GLUCOSE 110 MG/DL (70-105); POTASSIUM 4.1 MMOL/L (3.6-5.0); SODIUM 138 MMOL/L (135-145); TOTAL PROTEIN 7.4 GM/DL (6.4-8.2)
[2016-12-04 15:37] LABS: BASOPHILS % (AUTO) 0 % (0-10); EOSINOPHILS # (AUTO) 0.2 10^3/uL (0.0-0.3); EOSINOPHILS % (AUTO) 5 % (0-10); HEMATOCRIT 42 % (35-52); HEMOGLOBIN 13.6 G/DL (11.5-16.0); LYMPHOCYTES # (AUTO) 1.4 X 10^3 (1.0-4.0); LYMPHOCYTES % (AUTO) 28 % (12-44); MEAN CORPUSCULAR HEMOGLOBIN 31 PG (25-34); MEAN CORPUSCULAR HGB CONC 33 G/DL (32-36); MEAN CORPUSCULAR VOLUME 96 FL (80-99); MEAN PLATELET VOLUME 9.7 FL (7.4-10.4); MONOCYTES # (AUTO) 0.7 X 10^3 (0.0-1.0); MONOCYTES % (AUTO) 13 % (0-12); NEUTROPHILS # (AUTO) 2.7 X 10^3 (1.8-7.8); NEUTROPHILS % (AUTO) 54 % (42-75); PLATELET COUNT 230 10^3/uL (130-400); RED BLOOD COUNT 4.37 10^6/uL (4.35-5.85); RED CELL DISTRIBUTION WIDTH 14.6 % (10.0-14.5)
[2016-12-04 16:02] LABS: ALANINE AMINOTRANSFERASE 22 U/L (0-55); ALBUMIN 3.7 GM/DL (3.2-4.5); ALKALINE PHOSPHATASE 85 U/L (40-136); BILIRUBIN,TOTAL 0.5 MG/DL (0.1-1.0); BUN/CREATININE RATIO 29; CALCIUM 9.7 MG/DL (8.5-10.1); CARBON DIOXIDE 25 MMOL/L (21-32); CHLORIDE 102 MMOL/L (98-107); CREATININE SERUM 0.79 MG/DL (0.60-1.30); GFR ESTIMATED > 60; GLUCOSE 99 MG/DL (70-105); POTASSIUM 4.3 MMOL/L (3.6-5.0); SODIUM 134 MMOL/L (135-145); TOTAL PROTEIN 7.2 GM/DL (6.4-8.2)
[~2017-01-01 14:34] MED LIST changes: -BORTEZOMIB 3.5 MG VELCADE SC SCH
[2017-01-01 14:53] LABS: BASOPHILS % (AUTO) 0 % (0-10); EOSINOPHILS # (AUTO) 0.3 10^3/uL (0.0-0.3); EOSINOPHILS % (AUTO) 4 % (0-10); HEMATOCRIT 42 % (35-52); HEMOGLOBIN 13.6 G/DL (11.5-16.0); LYMPHOCYTES # (AUTO) 1.7 X 10^3 (1.0-4.0); LYMPHOCYTES % (AUTO) 25 % (12-44); MEAN CORPUSCULAR HEMOGLOBIN 32 PG (25-34); MEAN CORPUSCULAR HGB CONC 33 G/DL (32-36); MEAN CORPUSCULAR VOLUME 97 FL (80-99); MONOCYTES # (AUTO) 0.9 X 10^3 (0.0-1.0); MONOCYTES % (AUTO) 13 % (0-12); NEUTROPHILS % (AUTO) 58 % (42-75); PLATELET COUNT 283 10^3/uL (130-400); RED BLOOD COUNT 4.29 10^6/uL (4.35-5.85); RED CELL DISTRIBUTION WIDTH 14.9 % (10.0-14.5); WHITE BLOOD COUNT 6.8 10^3/uL (4.3-11.0)
[2017-01-01 15:10] LABS: ALBUMIN 3.7 GM/DL (3.2-4.5); BILIRUBIN,TOTAL 0.4 MG/DL (0.1-1.0); CALCIUM 9.6 MG/DL (8.5-10.1); CREATININE SERUM 0.95 MG/DL (0.60-1.30); POTASSIUM 3.8 MMOL/L (3.6-5.0); TOTAL PROTEIN 7.6 GM/DL (6.4-8.2)
== END 2017-02-18 | disposition home or self-care (01) ==
LOC: ONC 14:34
PROVIDERS: ATTEND Internal Medicine Hematology & Oncology
DX: C90.00 Multiple myeloma not having achieved remission (principal); I48.91 Unspecified atrial fibrillation; K21.9 Gastro-esophageal reflux disease without esophagitis; Z95.0 Presence of cardiac pacemaker; Z79.01 Long term (current) use of anticoagulants
CPT/HCPCS: 36415; 80053; 82784; 83883; 85025; 99213

== ENCOUNTER → 2017-02-15 | Outpatient (CLI) | payer MEDICARE ==
[~2017-02-15] MED LIST changes: +CATHETER FLUSH 10 ML SYR IV PRN; +REGADENOSON 0.4 MG/5 ML SYR (LEXISCAN) IV ONE; -ZOLEDRONIC ACID (CANCER CTR) 4 MG in NS (IVPB) CANCER CENTER 100 ML IV SCH
[2017-02-15 09:29] VITALS: BP 120/76
--- NOTE | 2017-02-15 19:07 | STRESS TEST ---
DATE OF SERVICE: 02/15/2017 RESTING AND POST REGADENOSON TECHNETIUM-99M TETROFOSMIN SPECT CT IMAGING ORDERING PHYSICIAN: Dr. Bowman. PRIMARY PHYSICIAN: Dr. Palma. CLINICAL DIAGNOSES: Nonsustained ventricular tachycardia, atrial fibrillation, syncope. Baseline images were carried out after injection of 10.97 mCi technetium-99m Tetrofosmin. This was followed by 0.4 mg regadenoson and 32.9 mCi of technetium-99m tetrofosmin for stress imaging. The electrocardiogram showed sinus rhythm with incomplete left bundle branch block at baseline and I did not change significantly with the regadenoson infusion. There was first degree AV block during the study. Review of images at rest and following regadenoson infusion do not indicate significant perfusion defects consistent with significant myocardial ischemia or infarction. Gated images show normal global left ventricular systolic function and normal regional wall motion. Left ventricular ejection fraction is calculated to be 69%. Left ventricular end diastolic volume 35 mL. TID is absent (0.99). CONCLUSIONS: 1. No evidence of any significant myocardial ischemia or infarction on this study. 2. Normal regional wall motion function with normal global left ventricular systolic function with a calculated ejection fraction of 69%. Job ID: [id number] DocumentID: [id number] Dictated Date: 02/15/2017 14:27:56 Chairman Of The Board Date: 02/15/2017 17:06:15 Dictated By: MARIO BOWMAN MD, MA, FACP, FACC,
== END ==
LOC: CARD 08:04
PROVIDERS: ATTEND Internal Medicine Cardiovascular Disease
DX: I47.2 Ventricular tachycardia (principal); I48.0 Paroxysmal atrial fibrillation; I65.23 Occlusion and stenosis of bilateral carotid arteries; C90.00 Multiple myeloma not having achieved remission; R55 Syncope and collapse; E66.8 Other obesity
CPT/HCPCS: 78452; 93017

== ENCOUNTER 2017-05-21 14:06 | Outpatient (RCR) | payer MEDICARE ==
[2017-02-26 14:47] LABS: BASOPHILS % (AUTO) 0 % (0-10); EOSINOPHILS % (AUTO) 4 % (0-10); HEMATOCRIT 43 % (35-52); HEMOGLOBIN 13.6 G/DL (11.5-16.0); LYMPHOCYTES # (AUTO) 1.8 X 10^3 (1.0-4.0); LYMPHOCYTES % (AUTO) 23 % (12-44); MEAN CORPUSCULAR HEMOGLOBIN 32 PG (25-34); MEAN CORPUSCULAR HGB CONC 32 G/DL (32-36); MEAN CORPUSCULAR VOLUME 101 FL (80-99); MEAN PLATELET VOLUME 10.5 FL (7.4-10.4); MONOCYTES # (AUTO) 0.8 X 10^3 (0.0-1.0); MONOCYTES % (AUTO) 11 % (0-12); NEUTROPHILS # (AUTO) 4.7 X 10^3 (1.8-7.8); NEUTROPHILS % (AUTO) 62 % (42-75); PLATELET COUNT 268 10^3/uL (130-400); RED BLOOD COUNT 4.21 10^6/uL (4.35-5.85); RED CELL DISTRIBUTION WIDTH 13.7 % (10.0-14.5); WHITE BLOOD COUNT 7.6 10^3/uL (4.3-11.0)
[2017-02-26 14:48] LABS: EOSINOPHILS # (AUTO) 0.3 10^3/uL (0.0-0.3)
[2017-02-26 15:01] LABS: ALBUMIN 3.5 GM/DL (3.2-4.5); BILIRUBIN,TOTAL 0.6 MG/DL (0.1-1.0); CALCIUM 9.3 MG/DL (8.5-10.1); CREATININE SERUM 0.9 MG/DL (0.60-1.30); POTASSIUM 3.9 MMOL/L (3.6-5.0)
[2017-03-22 13:41] LABS: BASOPHILS % (AUTO) 0 % (0-10); EOSINOPHILS # (AUTO) 0.2 10^3/uL (0.0-0.3); EOSINOPHILS % (AUTO) 3 % (0-10); HEMATOCRIT 44 % (35-52); HEMOGLOBIN 14.1 G/DL (11.5-16.0); LYMPHOCYTES # (AUTO) 1.8 X 10^3 (1.0-4.0); LYMPHOCYTES % (AUTO) 25 % (12-44); MEAN CORPUSCULAR HEMOGLOBIN 32 PG (25-34); MEAN CORPUSCULAR HGB CONC 32 G/DL (32-36); MEAN CORPUSCULAR VOLUME 98 FL (80-99); MEAN PLATELET VOLUME 10.1 FL (7.4-10.4); MONOCYTES # (AUTO) 0.9 X 10^3 (0.0-1.0); MONOCYTES % (AUTO) 13 % (0-12); NEUTROPHILS # (AUTO) 4.2 X 10^3 (1.8-7.8); NEUTROPHILS % (AUTO) 59 % (42-75); PLATELET COUNT 263 10^3/uL (130-400); RED BLOOD COUNT 4.46 10^6/uL (4.35-5.85); RED CELL DISTRIBUTION WIDTH 13.4 % (10.0-14.5); WHITE BLOOD COUNT 7.1 10^3/uL (4.3-11.0)
[2017-03-22 14:00] LABS: ALBUMIN 3.7 GM/DL (3.2-4.5); BILIRUBIN,TOTAL 0.5 MG/DL (0.1-1.0); CALCIUM 9.9 MG/DL (8.5-10.1); CREATININE SERUM 0.98 MG/DL (0.60-1.30); POTASSIUM 4.5 MMOL/L (3.6-5.0); TOTAL PROTEIN 8.6 GM/DL (6.4-8.2)
[2017-04-16 14:45] LABS: BASOPHILS % (AUTO) 1 % (0-10); EOSINOPHILS # (AUTO) 0.3 10^3/uL (0.0-0.3); EOSINOPHILS % (AUTO) 5 % (0-10); HEMATOCRIT 42 % (35-52); HEMOGLOBIN 13.5 G/DL (11.5-16.0); LYMPHOCYTES # (AUTO) 1.6 X 10^3 (1.0-4.0); LYMPHOCYTES % (AUTO) 22 % (12-44); MEAN CORPUSCULAR HEMOGLOBIN 32 PG (25-34); MEAN CORPUSCULAR HGB CONC 33 G/DL (32-36); MEAN CORPUSCULAR VOLUME 98 FL (80-99); MEAN PLATELET VOLUME 9.9 FL (7.4-10.4); MONOCYTES # (AUTO) 0.8 X 10^3 (0.0-1.0); MONOCYTES % (AUTO) 11 % (0-12); NEUTROPHILS # (AUTO) 4.4 X 10^3 (1.8-7.8); NEUTROPHILS % (AUTO) 62 % (42-75); PLATELET COUNT 214 10^3/uL (130-400); RED BLOOD COUNT 4.26 10^6/uL (4.35-5.85); RED CELL DISTRIBUTION WIDTH 13.6 % (10.0-14.5); WHITE BLOOD COUNT 7.1 10^3/uL (4.3-11.0)
[2017-04-16 15:09] LABS: ALANINE AMINOTRANSFERASE 9 U/L (0-55); ALBUMIN 3.5 GM/DL (3.2-4.5); ALKALINE PHOSPHATASE 76 U/L (40-136); BILIRUBIN,TOTAL 0.7 MG/DL (0.1-1.0); BUN/CREATININE RATIO 25; CALCIUM 9.3 MG/DL (8.5-10.1); CARBON DIOXIDE 25 MMOL/L (21-32); CHLORIDE 107 MMOL/L (98-107); CREATININE SERUM 0.84 MG/DL (0.60-1.30); GFR ESTIMATED > 60; GLUCOSE 102 MG/DL (70-105); POTASSIUM 4.2 MMOL/L (3.6-5.0); SODIUM 137 MMOL/L (135-145); TOTAL PROTEIN 8.4 GM/DL (6.4-8.2)
[2017-04-24 14:58] LABS: BASOPHILS % (AUTO) 0 % (0-10); EOSINOPHILS # (AUTO) 0.3 10^3/uL (0.0-0.3); EOSINOPHILS % (AUTO) 5 % (0-10); HEMATOCRIT 42 % (35-52); HEMOGLOBIN 13.4 G/DL (11.5-16.0); LYMPHOCYTES # (AUTO) 1.8 X 10^3 (1.0-4.0); LYMPHOCYTES % (AUTO) 26 % (12-44); MEAN CORPUSCULAR HEMOGLOBIN 31 PG (25-34); MEAN CORPUSCULAR HGB CONC 32 G/DL (32-36); MEAN CORPUSCULAR VOLUME 98 FL (80-99); MEAN PLATELET VOLUME 10.7 FL (7.4-10.4); MONOCYTES # (AUTO) 0.8 X 10^3 (0.0-1.0); MONOCYTES % (AUTO) 12 % (0-12); NEUTROPHILS # (AUTO) 3.8 X 10^3 (1.8-7.8); NEUTROPHILS % (AUTO) 57 % (42-75); PLATELET COUNT 223 10^3/uL (130-400); RED BLOOD COUNT 4.29 10^6/uL (4.35-5.85); RED CELL DISTRIBUTION WIDTH 13.7 % (10.0-14.5); WHITE BLOOD COUNT 6.7 10^3/uL (4.3-11.0)
[2017-04-24 15:24] LABS: ALANINE AMINOTRANSFERASE 10 U/L (0-55); ALBUMIN 3.6 GM/DL (3.2-4.5); ALKALINE PHOSPHATASE 74 U/L (40-136); BILIRUBIN,TOTAL 0.5 MG/DL (0.1-1.0); BUN/CREATININE RATIO 27; CALCIUM 9.3 MG/DL (8.5-10.1); CARBON DIOXIDE 22 MMOL/L (21-32); CHLORIDE 107 MMOL/L (98-107); CREATININE SERUM 0.81 MG/DL (0.60-1.30); GFR ESTIMATED > 60; GLUCOSE 72 MG/DL (70-105); SODIUM 137 MMOL/L (135-145); TOTAL PROTEIN 8.6 GM/DL (6.4-8.2)
[2017-05-08 14:57] LABS: BASOPHILS % (AUTO) 1 % (0-10); EOSINOPHILS # (AUTO) 0.5 10^3/uL (0.0-0.3); EOSINOPHILS % (AUTO) 6 % (0-10); HEMATOCRIT 41 % (35-52); HEMOGLOBIN 13.3 G/DL (11.5-16.0); LYMPHOCYTES # (AUTO) 1.3 X 10^3 (1.0-4.0); LYMPHOCYTES % (AUTO) 17 % (12-44); MEAN CORPUSCULAR HEMOGLOBIN 32 PG (25-34); MEAN CORPUSCULAR HGB CONC 33 G/DL (32-36); MEAN CORPUSCULAR VOLUME 98 FL (80-99); MEAN PLATELET VOLUME 10.1 FL (7.4-10.4); MONOCYTES # (AUTO) 1.4 X 10^3 (0.0-1.0); MONOCYTES % (AUTO) 19 % (0-12); NEUTROPHILS # (AUTO) 4.5 X 10^3 (1.8-7.8); NEUTROPHILS % (AUTO) 58 % (42-75); PLATELET COUNT 234 10^3/uL (130-400); RED BLOOD COUNT 4.15 10^6/uL (4.35-5.85); RED CELL DISTRIBUTION WIDTH 13.8 % (10.0-14.5); WHITE BLOOD COUNT 7.7 10^3/uL (4.3-11.0)
[2017-05-08 15:12] LABS: ALANINE AMINOTRANSFERASE 9 U/L (0-55); ALBUMIN 3.5 GM/DL (3.2-4.5); ALKALINE PHOSPHATASE 73 U/L (40-136); BILIRUBIN,TOTAL 0.7 MG/DL (0.1-1.0); BUN/CREATININE RATIO 23; CALCIUM 9.3 MG/DL (8.5-10.1); CARBON DIOXIDE 24 MMOL/L (21-32); CHLORIDE 107 MMOL/L (98-107); CREATININE SERUM 0.84 MG/DL (0.60-1.30); GFR ESTIMATED > 60; GLUCOSE 92 MG/DL (70-105); POTASSIUM 4.2 MMOL/L (3.6-5.0); SODIUM 137 MMOL/L (135-145); TOTAL PROTEIN 7.4 GM/DL (6.4-8.2)
[~2017-05-21 14:06] MED LIST changes: -CATHETER FLUSH 10 ML SYR IV PRN; -REGADENOSON 0.4 MG/5 ML SYR (LEXISCAN) IV ONE
[2017-05-21 14:23] LABS: BASOPHILS # (AUTO) 0.1 10^3/uL (0.0-0.1); BASOPHILS % (AUTO) 2 % (0-10); EOSINOPHILS # (AUTO) 0.2 10^3/uL (0.0-0.3); EOSINOPHILS % (AUTO) 3 % (0-10); HEMATOCRIT 45 % (35-52); HEMOGLOBIN 14.2 G/DL (11.5-16.0); LYMPHOCYTES % (AUTO) 30 % (12-44); MEAN CORPUSCULAR HEMOGLOBIN 31 PG (25-34); MEAN CORPUSCULAR HGB CONC 32 G/DL (32-36); MEAN CORPUSCULAR VOLUME 98 FL (80-99); MEAN PLATELET VOLUME 9.6 FL (7.4-10.4); MONOCYTES # (AUTO) 1.2 X 10^3 (0.0-1.0); MONOCYTES % (AUTO) 18 % (0-12); NEUTROPHILS # (AUTO) 3.2 X 10^3 (1.8-7.8); NEUTROPHILS % (AUTO) 47 % (42-75); PLATELET COUNT 351 10^3/uL (130-400); RED BLOOD COUNT 4.56 10^6/uL (4.35-5.85); RED CELL DISTRIBUTION WIDTH 13.6 % (10.0-14.5); WHITE BLOOD COUNT 6.7 10^3/uL (4.3-11.0)
[2017-05-21 14:47] LABS: ALANINE AMINOTRANSFERASE 15 U/L (0-55); ALKALINE PHOSPHATASE 84 U/L (40-136); BILIRUBIN,TOTAL 0.4 MG/DL (0.1-1.0); BUN/CREATININE RATIO 21; CALCIUM 9.6 MG/DL (8.5-10.1); CARBON DIOXIDE 25 MMOL/L (21-32); CHLORIDE 105 MMOL/L (98-107); CREATININE SERUM 0.87 MG/DL (0.60-1.30); GFR ESTIMATED > 60; GLUCOSE 79 MG/DL (70-105); POTASSIUM 4.2 MMOL/L (3.6-5.0); SODIUM 136 MMOL/L (135-145); TOTAL PROTEIN 8.2 GM/DL (6.4-8.2)
== END 2017-05-27 | disposition home or self-care (01) ==
LOC: ONC 14:06
PROVIDERS: ATTEND Internal Medicine Hematology & Oncology
DX: C90.00 Multiple myeloma not having achieved remission (principal); I48.91 Unspecified atrial fibrillation; K21.9 Gastro-esophageal reflux disease without esophagitis; Z95.0 Presence of cardiac pacemaker; Z79.01 Long term (current) use of anticoagulants
CPT/HCPCS: 36415; 80053; 82784; 83883; 85025; 99213

== ENCOUNTER 2017-08-14 14:23 | Outpatient (RCR) | payer MEDICARE ==
[2017-06-18 14:46] LABS: BASOPHILS # (AUTO) 0.1 10^3/uL (0.0-0.1); BASOPHILS % (AUTO) 2 % (0-10); EOSINOPHILS # (AUTO) 0.3 10^3/uL (0.0-0.3); EOSINOPHILS % (AUTO) 4 % (0-10); HEMATOCRIT 42 % (35-52); HEMOGLOBIN 13.3 G/DL (11.5-16.0); LYMPHOCYTES # (AUTO) 1.8 X 10^3 (1.0-4.0); LYMPHOCYTES % (AUTO) 29 % (12-44); MEAN CORPUSCULAR HEMOGLOBIN 31 PG (25-34); MEAN CORPUSCULAR HGB CONC 32 G/DL (32-36); MEAN CORPUSCULAR VOLUME 98 FL (80-99); MEAN PLATELET VOLUME 9.3 FL (7.4-10.4); MONOCYTES # (AUTO) 1.1 X 10^3 (0.0-1.0); MONOCYTES % (AUTO) 17 % (0-12); NEUTROPHILS # (AUTO) 3.1 X 10^3 (1.8-7.8); NEUTROPHILS % (AUTO) 49 % (42-75); PLATELET COUNT 318 10^3/uL (130-400); RED BLOOD COUNT 4.32 10^6/uL (4.35-5.85); RED CELL DISTRIBUTION WIDTH 14.3 % (10.0-14.5); WHITE BLOOD COUNT 6.4 10^3/uL (4.3-11.0)
[2017-06-18 15:07] LABS: ALANINE AMINOTRANSFERASE 12 U/L (0-55); ALBUMIN 3.5 GM/DL (3.2-4.5); ALKALINE PHOSPHATASE 74 U/L (40-136); BILIRUBIN,TOTAL 0.4 MG/DL (0.1-1.0); BUN/CREATININE RATIO 21; CALCIUM 9.4 MG/DL (8.5-10.1); CARBON DIOXIDE 28 MMOL/L (21-32); CHLORIDE 104 MMOL/L (98-107); CREATININE SERUM 0.85 MG/DL (0.60-1.30); GFR ESTIMATED > 60; GLUCOSE 115 MG/DL (70-105); POTASSIUM 4.7 MMOL/L (3.6-5.0); SODIUM 138 MMOL/L (135-145); TOTAL PROTEIN 6.9 GM/DL (6.4-8.2)
[2017-07-17 14:47] LABS: BASOPHILS # (AUTO) 0.1 10^3/uL (0.0-0.1); BASOPHILS % (AUTO) 1 % (0-10); EOSINOPHILS # (AUTO) 0.2 10^3/uL (0.0-0.3); EOSINOPHILS % (AUTO) 3 % (0-10); HEMATOCRIT 38 % (35-52); HEMOGLOBIN 12.1 G/DL (11.5-16.0); LYMPHOCYTES # (AUTO) 1.7 X 10^3 (1.0-4.0); LYMPHOCYTES % (AUTO) 23 % (12-44); MEAN CORPUSCULAR HEMOGLOBIN 32 PG (25-34); MEAN CORPUSCULAR HGB CONC 32 G/DL (32-36); MEAN CORPUSCULAR VOLUME 98 FL (80-99); MEAN PLATELET VOLUME 9.3 FL (7.4-10.4); MONOCYTES # (AUTO) 1.6 X 10^3 (0.0-1.0); MONOCYTES % (AUTO) 22 % (0-12); NEUTROPHILS # (AUTO) 3.8 X 10^3 (1.8-7.8); NEUTROPHILS % (AUTO) 51 % (42-75); PLATELET COUNT 309 10^3/uL (130-400); RED BLOOD COUNT 3.83 10^6/uL (4.35-5.85); RED CELL DISTRIBUTION WIDTH 14.9 % (10.0-14.5); WHITE BLOOD COUNT 7.4 10^3/uL (4.3-11.0)
[2017-07-17 15:07] LABS: ALANINE AMINOTRANSFERASE 12 U/L (0-55); ALBUMIN 3.3 GM/DL (3.2-4.5); ALKALINE PHOSPHATASE 73 U/L (40-136); BILIRUBIN,TOTAL 0.6 MG/DL (0.1-1.0); BUN/CREATININE RATIO 23; CALCIUM 8.8 MG/DL (8.5-10.1); CARBON DIOXIDE 25 MMOL/L (21-32); CHLORIDE 104 MMOL/L (98-107); CREATININE SERUM 0.87 MG/DL (0.60-1.30); GFR ESTIMATED > 60; GLUCOSE 103 MG/DL (70-105); POTASSIUM 4.2 MMOL/L (3.6-5.0); SODIUM 136 MMOL/L (135-145); TOTAL PROTEIN 6.7 GM/DL (6.4-8.2)
[2017-08-14 15:18] LABS: BASOPHILS # (AUTO) 0.1 10^3/uL (0.0-0.1); BASOPHILS % (AUTO) 2 % (0-10); EOSINOPHILS # (AUTO) 0.3 10^3/uL (0.0-0.3); EOSINOPHILS % (AUTO) 5 % (0-10); HEMATOCRIT 39 % (35-52); HEMOGLOBIN 12.6 G/DL (11.5-16.0); LYMPHOCYTES # (AUTO) 1.8 X 10^3 (1.0-4.0); LYMPHOCYTES % (AUTO) 29 % (12-44); MEAN CORPUSCULAR HEMOGLOBIN 32 PG (25-34); MEAN CORPUSCULAR HGB CONC 33 G/DL (32-36); MEAN CORPUSCULAR VOLUME 99 FL (80-99); MEAN PLATELET VOLUME 9.4 FL (7.4-10.4); MONOCYTES # (AUTO) 1.2 X 10^3 (0.0-1.0); MONOCYTES % (AUTO) 19 % (0-12); NEUTROPHILS # (AUTO) 2.8 X 10^3 (1.8-7.8); NEUTROPHILS % (AUTO) 45 % (42-75); PLATELET COUNT 361 10^3/uL (130-400); RED BLOOD COUNT 3.94 10^6/uL (4.35-5.85); RED CELL DISTRIBUTION WIDTH 15.5 % (10.0-14.5); WHITE BLOOD COUNT 6.1 10^3/uL (4.3-11.0)
[2017-08-14 15:39] LABS: ALANINE AMINOTRANSFERASE 11 U/L (0-55); ALBUMIN 3.4 GM/DL (3.2-4.5); ALKALINE PHOSPHATASE 74 U/L (40-136); BILIRUBIN,TOTAL 0.5 MG/DL (0.1-1.0); BUN/CREATININE RATIO 15; CALCIUM 9.6 MG/DL (8.5-10.1); CARBON DIOXIDE 24 MMOL/L (21-32); CHLORIDE 106 MMOL/L (98-107); CREATININE SERUM 0.82 MG/DL (0.60-1.30); GFR ESTIMATED > 60; GLUCOSE 93 MG/DL (70-105); POTASSIUM 4.4 MMOL/L (3.6-5.0); SODIUM 139 MMOL/L (135-145); TOTAL PROTEIN 6.9 GM/DL (6.4-8.2)
== END 2017-09-16 | disposition home or self-care (01) ==
LOC: ONC 14:23
PROVIDERS: ATTEND Internal Medicine Hematology & Oncology
DX: C90.00 Multiple myeloma not having achieved remission (principal); I48.91 Unspecified atrial fibrillation; K21.9 Gastro-esophageal reflux disease without esophagitis; Z95.0 Presence of cardiac pacemaker; Z79.01 Long term (current) use of anticoagulants
CPT/HCPCS: 36415; 80053; 82784; 83883; 84443; 85025; 99213

== ENCOUNTER 2017-10-09 14:14 | Outpatient (RCR) | payer MEDICARE ==
[~2017-10-09 14:14] MED LIST changes: -AMLO5TAB2 PO; +AMLO5TAB7 PO; -LOSA100T28 PO; +LOSA100T8 PO; -LOSA50TA36 PO; +LOSA50TA7 PO
[2017-10-09 14:33] LABS: BASOPHILS # (AUTO) 0.1 10^3/uL (0.0-0.1); BASOPHILS % (AUTO) 2 % (0-10); EOSINOPHILS # (AUTO) 0.2 10^3/uL (0.0-0.3); EOSINOPHILS % (AUTO) 4 % (0-10); HEMATOCRIT 40 % (35-52); HEMOGLOBIN 12.6 G/DL (11.5-16.0); LYMPHOCYTES # (AUTO) 1.8 X 10^3 (1.0-4.0); LYMPHOCYTES % (AUTO) 34 % (12-44); MEAN CORPUSCULAR HEMOGLOBIN 32 PG (25-34); MEAN CORPUSCULAR HGB CONC 32 G/DL (32-36); MEAN CORPUSCULAR VOLUME 100 FL (80-99); MEAN PLATELET VOLUME 9.1 FL (7.4-10.4); MONOCYTES # (AUTO) 1.1 X 10^3 (0.0-1.0); MONOCYTES % (AUTO) 20 % (0-12); NEUTROPHILS # (AUTO) 2.2 X 10^3 (1.8-7.8); NEUTROPHILS % (AUTO) 42 % (42-75); PLATELET COUNT 353 10^3/uL (130-400); RED BLOOD COUNT 3.98 10^6/uL (4.35-5.85); RED CELL DISTRIBUTION WIDTH 15.3 % (10.0-14.5); WHITE BLOOD COUNT 5.4 10^3/uL (4.3-11.0)
[2017-10-09 14:56] LABS: ALBUMIN 3.5 GM/DL (3.2-4.5); BILIRUBIN,TOTAL 0.4 MG/DL (0.1-1.0); CALCIUM 9.4 MG/DL (8.5-10.1); CREATININE SERUM 1.06 MG/DL (0.60-1.30); POTASSIUM 4.3 MMOL/L (3.6-5.0); TOTAL PROTEIN 6.9 GM/DL (6.4-8.2)
== END 2017-10-19 | disposition home or self-care (01) ==
LOC: ONC 14:14
PROVIDERS: ATTEND Internal Medicine Hematology & Oncology
DX: C90.00 Multiple myeloma not having achieved remission (principal); I48.2 Chronic atrial fibrillation; I10 Essential (primary) hypertension; M19.011 Primary osteoarthritis, right shoulder; K21.9 Gastro-esophageal reflux disease without esophagitis; R19.7 Diarrhea, unspecified; F32.9 Major depressive disorder, single episode, unspecified; Z95.0 Presence of cardiac pacemaker; Z79.01 Long term (current) use of anticoagulants; Z92.3 Personal history of irradiation
CPT/HCPCS: 36415; 80053; 82784; 83883; 85025; 99213

== ENCOUNTER 2018-01-31 09:33 | Inpatient (IN) | payer MEDICARE ==
[~2018-01-31] VITALS: Ht 160 cm; Wt 76.4 kg
[~2018-01-31 09:33] MED LIST changes: +GABA-488 PO; +LORA0.5T PO; +METR-197 PO; -METR500T21 PO; +MIRT30TA6 PO; +POMA2CAP PO
[2018-01-31 11:15] VITALS: BP 103/69
--- NOTE | 2018-01-31 11:55 | Physical Therapy Evaluation ---
PT Evaluation-General Medical Diagnosis Admission Date Jan 31, 2018 at 11:25 Medical Diagnosis: Resp distress with hypoxia, acute bronchitis Onset Date: Jan 27, 2018 Therapy Diagnosis Therapy Diagnosis: impaired mobility, strength, endurance Height/Weight Height (Feet): 5 Height (Inches): 3.00 Weight (Pounds): 160 Weight (Ounces): 0.0 Weight Bear Status Right Lower Extremity: Right Weight Bearing/Tolerated Left Lower Extremity: Left Weight Bearing/Tolerated Referral Physician: Francisco J Reason for Referral: Evaluation/Treatment Medical History Pertinent Medical History: Arthritis, HTN, OA Additional Medical History high cholesterol, surg (bilateral TKA, rectal fistula, pacemaker) Current History went to ER with wheezing and SOB Reviewed History: Yes Social History Home: Single Level Current Living Status: Alone Entry Into Home: Stairs With Railing PT Steps Into Home: 3 Prior/Core FIM Prior Level of Function Therapy Code Descriptions/Definitions Functional [place] Measure: 0=Not Assessed/NA 4=Minimal Assistance 1=Total Assistance 5=Supervision or Setup 2=Maximal Assistance 6=Modified [place] 3=Moderate Assistance 7=Complete [place] Therapy Quality Codes: 6 Independent with activity with or without an assistive device 5 Patient requires set up or clean up by helper. Patient completes activity by themselves 4 Supervision or touching assist (CGA). [place] provide cues , steadying assist 3 The helper provides less than half the effort to complete the activity 2 The helper provides more than half the effort to complete the activity 1 Dependent. The helper does all the effort to complete an activity 7 Patient refused to complete or attempt activity 9 The patient did not perform the activity before the current illness or injury 88 Not attempted due to Medical conditions or safety concerns Functional Abilities and Goals: Independent: Patient completed the activities by him/herself, with or without an assistive device, with no assistance from a helper. Needed Some Help: Patient needed partial assistance from another person to complete activities. Dependent: A helper completed the activities for the patient. Unknown: Not Applicable: Bed Mobility: 6 Transfers (B,C,W/C) (FIM): 6 Gait: 6 Stairs: 6 Indoor Mobility (Ambulation): Independent Stairs: Independent Patient used a single point cane and rolling walker PT Evaluation-Current Subjective Patient in recliner pre tx, agrees to PT, no complaints of pain. Pt/Family Goals to be independent at home Objective Patient Orientation: Person, Confused, Place, Situation Attachments: Oxygen 5L of O2 nasal canula ROM/Strength ROM Lower Extremities WNL Strenght Lower Extremities 4+/5 gross bilateral lower extremities Neuromuscular (Tone, Coordination, Reflexes) NT Sensory Vision: Wears Glasses Hearing: Functional Sensation Right Lower Extremit: Intact Sensation Left Lower Extremity: Intact Transfers Therapy Code Descriptions/Definitions Functional [place] Measure: 0=Not Assessed/NA 4=Minimal Assistance 1=Total Assistance 5=Supervision or Setup 2=Maximal Assistance 6=Modified [place] 3=Moderate Assistance 7=Complete [place] Therapy Quality Codes: 6 Independent with activity with or without an assistive device 5 Patient requires set up or clean up by helper. Patient completes activity by themselves 4 Supervision or touching assist (CGA). [place] provide cues , steadying assist 3 The helper provides less than half the effort to complete the activity 2 The helper provides more than half the effort to complete the activity 1 Dependent. The helper does all the effort to complete an activity 7 Patient refused to complete or attempt activity 9 The patient did not perform the activity before the current illness or injury 88 Not attempted due to Medical conditions or safety concerns Transfers (B, C, W/C) (FIM): 4 Scootin Rollin Roll Left to Right (QC): 4 Supine to/from Sit: 4 Sit to/from Stand: 4 Sit to Lying (QC): 3 Lying to Sitting/Side of Bed(Q: 4 Sit to Stand (QC): 4 Chair/Yyd-ju-Xqncq Xfer(QC): 4 Car Transfer (QC): 4 Patient performs bed mobility with SBA, sit to supine with min assist, supine to sit with SBA, sit to stand CGA, transfers CGA, car transfer CGA. Occasional cues for hand placement and positioning. Gait Does the Patient Walk?: Yes Mode of Locomotion: Walk Anticipated Mode of Locomotion: Walk Gait (FIM): 2 Walk 10 feet (QC): 4 Walk 50 ft with 2 Turns(QC): 4 Walking 10ft/uneven surface-QC: 4 Distance: 120', 60'x2 Gait Level of Assist: 4 Gait Persons Needed: 1 Gait Assistive Device: FWW Comments/Gait Description Patient can ambulate 120' with a rolling walker with CGA (including 50' with at least 2 turns of 90 degrees and 10' over an uneven surface). Patient ambulates briskly but steady with using a walker but she does tend to keep walker too far out in front. Wheelchair Training Does the Pt Use a Wheelchair?: No Stairs Stairs (FIM): 1 #of Steps: 1 Level of Assist: 4 1 Step (curb) (QC): 4 Assistive Device: Walker Patient can go up and down 1 step using a rolling walker with CGA. Balance Sitting Static: Normal Sitting Dynamic: Normal Standing Static: Good Standing Dynamic: Good Treatment NuStep level 4 for 10 min. Assessment/Needs Patient has impairments in mobility, strength, endurance. She seems confused at times. Rehab Potential: Fair PT Short Term Goals Short Term Goals Time Frame: Feb 07, 2018 Transfers (B,C,W/C) (FIM): 5 Gait (FIM): 5 Gait Distance Comment: 150' Gait Level of Assist: 5 Gait Assistive Device: FWW PT Revenue Collector Goals Prison Goals PT Prison Goals Time Frame: Feb 21, 2018 Transfers (B,C,W/C) (FIM): 6 Sit to Lying (QC): 6 Lying-Sitting on Side/Bed(QC): 6 Sit to Stand (QC): 6 Rollin Roll Left to Right (QC): 6 Chair/Ftn-mk-Ubxmm Xfer(QC): 6 Car Transfer (QC): 6 Gait (FIM): 6 Distance: 200' Walk 10 feet (QC): 6 Walk 10ft-Uneven Surface(QC): 6 Walk 50ft with 2 Turns (QC): 6 Walk 150 ft (QC): 6 Gait Level of Assist: 6 Gait Assistive Device: FWW Stairs (FIM): 2 # of Steps: 4 1 Step (curb) (QC): 4 4 Steps (QC): 4 Stairs Level Of Assist: 5 PT Plan Problem List Problem List: Activity Tolerance, Functional Strength, Safety, Balance, Gait, Transfer, Bed Mobility Treatment/Plan Treatment Plan: Continue Plan of Care Treatment Plan: Bed Mobility, Education, Functional Activity Cassandra, Functional Strength, Group Therapy, Gait, Safety, Therapeutic Exercise, Transfers Treatment Duration: Feb 21, 2018 Frequency: At least 5 of 7 days/Wk (IRF) Estimated Hrs Per Day: 1.5 hours per day Patient and/or Family Agrees t: Yes Safety Risks/Education Patient Education: Gait Training, Transfer Techniques, Steps, Correct Positioning, Safety Issues Teaching Recipient: Patient Teaching Methods: Demonstration, Discussion Response to Teaching: Reinforcement Needed Discharge Recommendations Plan Patient will perform bed mobility and transfer training, balance and endurance training, functional strengthening, stair training, gait training, and education to improve functional mobility and independence at home. Therapy D/C Recommendations: Assisted Living, Home w/ Family Support Time/GCodes Time In: 1115 Time Out: 1200 Total Billed Treatment Time: 45 Total Billed Treatment 1 visit EVM 15' GT 20' EX 10' JOHN MÉNDEZ PT Jan 31, 2018 11:54
--- NOTE | 2018-01-31 13:08 | Occupational Therapy Eval ---
OT Evaluation-General/PLF Medical Diagnosis Admission Date Jan 31, 2018 at 11:25 Medical Diagnosis: Resp distress with hypoxia, acute bronchitis Onset Date: Jan 27, 2018 Therapy Diagnosis Therapy Diagnosis: Debility Height/Weight Height (Feet): 5 Height (Inches): 3.00 Weight (Pounds): 165 Weight (Ounces): 0.0 Precautions Precautions/Isolations: Fall Prevention, Standard Precautions Weight Bear Status Weight Bearing Restriction: Weight Bearing/Tolerated Referral Physician: Francisco J Referral Reason: Activity Tolerance, Self Care, Evaluation/Treatment, Strengthening/ROM Medical History Pertinent Medical History: Arthritis, HTN, OA Reviewed History: Yes Social History Home: Single Level Current Living Status: Alone Entry Into Home: Stairs With Railing Steps Into Home: 3 ADL-Prior Level of Function Therapy Code Descriptions/Definitions Functional [place] Measure: 0=Not Assessed/NA 4=Minimal Assistance 1=Total Assistance 5=Supervision or Setup 2=Maximal Assistance 6=Modified [place] 3=Moderate Assistance 7=Complete [place] Therapy Quality Codes: 6 Independent with activity with or without an assistive device 5 Patient requires set up or clean up by helper. Patient completes activity by themselves 4 Supervision or touching assist (CGA). [place] provide cues , steadying assist 3 The helper provides less than half the effort to complete the activity 2 The helper provides more than half the effort to complete the activity 1 Dependent. The helper does all the effort to complete an activity 7 Patient refused to complete or attempt activity 9 The patient did not perform the activity before the current illness or injury 88 Not attempted due to Medical conditions or safety concerns Functional Abilities and Goals: Independent: Patient completed the activities by him/herself, with or without an assistive device, with no assistance from a helper. Needed Some Help: Patient needed partial assistance from another person to complete activities. Dependent: A helper completed the activities for the patient. Unknown: Not Applicable: ADL PLOF Comments Pt. states that she was fully independent before this current illness. Pt. states that she still drives. Self Care: Independent Functional Cognition: Independent DME/Equipment: Bath Chair, Shower DME/Equipment Comments Pt. has a cane and walker. States that she mainly uses her cane. Drive Self: Yes OT Current Status Subjective No pain reported. Appearance Pt. is up in chair. Agrees to work with OT. Mental Status/Objective Patient Orientation: Person, Place Attachments: IV, Telemetry Current Hand Dominance: Right Upper Extremity ROM Pt. has limited ROM in bilateral shoulders. Pt. demonstrates approximately 90 degrees in right shoulder, and 60 degrees in left. Note that pt. has arthritis in all joints. ADL-Treatment Lower Body Dressing (FIM): 5 (Pt. is able to doff/don slipper socks with increased effort overall, while seated in her wheelchair.) Lower Body Dressing (QC): 4 (Does not have street clothing available at time of evaluation.) On/Off Footwear (QC): 4 Transfers (B, C, W/C) (FIM): 4 (SBA sit-stand, CGA to ambulate with walker. Pt. ambulated approximately 50 feet.) Other Treatments Pt. evaluated for rehab. OT discussed rehab goals, OT goals, and need for overall increased strength with pt. Pt. verbalizes understanding. Noted that pt. is on 5 L 02 during evaluation. All needs met in room. Education OT Patient Education: Correct positioning, Modified ADL techniques, Progress toward Goal/Update tx plan, Purpose of tx/functional activities, Reviewed precautions, Rehab process, Transfer techniques Teaching Recipient: Patient Teaching Methods: Demonstration, Discussion Response to Teaching: Verbalize Understanding, Return Demonstration OT Short Term Goals Short Term Goals Time Frame: Feb 07, 2018 Eating(FIM): 5 Grooming(FIM): 5 Bathing(FIM): 4 Upper Body Dressing(FIM): 5 Lower Body Dressing(FIM): 5 Toileting(FIM): 5 Transfers (B,C,W/C) (FIM): 5 Toilet/Commode Transfer(FIM): 5 Shower Transfer(FIM): 4 Additional Short Term Goals: 1-Demonstrate ADL Tasks, 2-Verbalize Understanding , 3-ImproveStrength/Cassandra 1=Demonstrate adherence to instructed precautions during ADL tasks. 2=Patient will verbalize/demonstrate understanding of assistive devices/ modifications for ADL. 3=Patient will improve strength/tolerance for activity to enable patient to perform ADL's. OT [employer] Vice President Goals [employer] Vice President Goals Time Frame: Feb 14, 2018 Eating (FIM): 6 Eating (QC): 6 Groomin Oral Hygiene (QC): 6 Bathing(FIM): 5 Shower/Bathe Self (QC): 4 Upper Body Dressing(FIM): 6 Upper Body Dressing (QC): 6 Lower Body Dressing(FIM): 6 Lower Body Dressing (QC): 6 On/Off Footwear (QC): 6 Toileting(FIM): 6 Toileting Hygiene (QC): 6 Transfers (B,C,W/C) (FIM): 6 Toilet/Commode Transfer(FIM): 6 Toilet/Commode Transfer (QC): 6 Shower Transfer(FIM): 5 Additional Goals: 1-Demonstrate ADL Tasks, 2-Verbalize Understanding, 3- ImproveStrength/Cassandra 1=Demonstrate adherence to instructed precautions during ADL tasks. 2=Patient will verbalize/demonstrate understanding of assistive devices/ modifications for ADL. 3=Patient will improve strength/tolerance for activity to enable patient to perform ADL's. OT Education/Plan Problem List/Assessment Assessment: Decreased Activ Tolerance, Impaired I ADL's, Impaired Self-Care Skills Discharge Recommendations Plan/Recommendations: Continue POC Therapy D/C Recommendations: Home w/ Family Support, Occupational Therapy Home Care Treatment Plan/Plan of Care Treatment,Training & Education: Yes Patient would benefit from OT for education, treatment and training to promote independence in ADL's, mobility, safety and/or upper extremity function for ADL' s. Plan of Care: ADL Retraining, Functional Mobility, Group Exercise/Act as Ind, UE Funct Exercise/Act Treatment Duration: Feb 14, 2018 Frequency: 5 times per week Estimated Hrs Per Day: 1.5 hours per day Agreement: Yes Rehab Potential: Good Time/GCodes Start Time: 10:45 Stop Time: 11:15 Total Time Billed (hr/min): 30 Billed Treatment Time 1, EVM x 15minutes, ADL x 15minutes ZELDA MEIER OT Jan 31, 2018 13:07
--- NOTE | 2018-01-31 13:43 | Occupational Ther Daily Note ---
OT Current Status-Daily Note Subjective Pt alert, lying in bed. Pt agrees to therapy. No c/o pain at this time. Mental Status/Objective Patient Orientation: Person, Place Therapy Code Descriptions/Definitions Functional [place] Measure: 0=Not Assessed/NA 4=Minimal Assistance 1=Total Assistance 5=Supervision or Setup 2=Maximal Assistance 6=Modified [place] 3=Moderate Assistance 7=Complete [place] Attachments: IV, Oxygen ADL-Treatment When INIGUEZ enters room pt is lying in bed with HOB lowered and lunch in front of pt. Pt is attempting to eat lunch lying down. INIGUEZ positioned pt appropriately. During shower pt would stand to wash body and placed one foot on bench to wash lower legs. INIGUEZ instructed pt that sitting on the bench is more safe than standing. Pt Therapy Code Descriptions/Definitions Functional [place] Measure: 0=Not Assessed/NA 4=Minimal Assistance 1=Total Assistance 5=Supervision or Setup 2=Maximal Assistance 6=Modified [place] 3=Moderate Assistance 7=Complete [place] Therapy Quality Codes: 6 Independent with activity with or without an assistive device 5 Patient requires set up or clean up by helper. Patient completes activity by themselves 4 Supervision or touching assist (CGA). [place] provide cues , steadying assist 3 The helper provides less than half the effort to complete the activity 2 The helper provides more than half the effort to complete the activity 1 Dependent. The helper does all the effort to complete an activity 7 Patient refused to complete or attempt activity 9 The patient did not perform the activity before the current illness or injury 88 Not attempted due to Medical conditions or safety concerns Eating (FIM): 5 (Dentures. Required positioning to eat lunch. Pt able to open containers/packages then use regular utensils to eat.) Eating (QC): 5 Grooming (FIM): 5 (SBA while pt stood at sink to complete grooming. Pt transferred off of toilet and ambulated to sink without FWW and did not use call light for assistance.) Oral Hygiene (QC): 5 Bathing (FIM): 5 (SBA using grabbars, handheld shower and shower bench. Pt encouraged to sit while washing upper/lower body. Used grabbars in standing to wash buttocks and anish area. After cleansing buttocks/anish area pt unaware that wash cloth was dirty and proceeded to wash rest of body. Cues needed to change wash cloth/rinse.) Bathing Location: L Arm, R Arm, L Upper Leg, R Upper Leg, L Lower Leg ( including foot), R Lower Leg (including foot), Chest, Abdomen, Buttocks, Perineal Area Shower/Bathe Self (QC): 4 Upper Body (FIM): 3 (Doffed by self. Min A to bring button up shirt around shldrs then assist to button 4 out of 6 buttons. Threaded arms through sleeves by self.) Upper Body Dressing (QC): 3 Lower Body Dressing (FIM): 4 (Pt able to don/doff socks by self and donned/ doffed pants with CGA and assist to hike over hips in standing.) Lower Body Dressing (QC): 3 On/Off Footwear (QC): 5 Toileting (FIM): 4 (CGA to manipulate clothing. Pt able to cleanse self though inefficiently. Pt incontinent of bowel/bladder.) Toileting Hygiene (QC): 3 Toilet/Commode Transfer (FIM): 5 (SBA using FWW to transfer onto toilet then using grabbars pt transferred off without FWW using grabbars and cruised using hand holds.) Toilet Transfer (QC): 5 Shower Transfer(FIM): 5 (CGA using hand holds and grabbars to transfer into shower. To transfer out of shower using grabbars and FWW.) OT Short Term Goals Short Term Goals Time Frame: Feb 07, 2018 Eating(FIM): 5 Grooming(FIM): 5 Bathing(FIM): 4 Upper Body Dressing(FIM): 5 Lower Body Dressing(FIM): 5 Toileting(FIM): 5 Transfers (B,C,W/C) (FIM): 5 Toilet/Commode Transfer(FIM): 5 Shower Transfer(FIM): 4 Additional Short Term Goals: 1-Demonstrate ADL Tasks, 2-Verbalize Understanding , 3-ImproveStrength/Cassandra 1=Demonstrate adherence to instructed precautions during ADL tasks. 2=Patient will verbalize/demonstrate understanding of assistive devices/ modifications for ADL. 3=Patient will improve strength/tolerance for activity to enable patient to perform ADL's. OT Fpc Goals Weed Cooking Operator Goals Time Frame: Feb 14, 2018 Eating (FIM): 6 Eating (QC): 6 Groomin Oral Hygiene (QC): 6 Bathing(FIM): 5 Shower/Bathe Self (QC): 4 Upper Body Dressing(FIM): 6 Upper Body Dressing (QC): 6 Lower Body Dressing(FIM): 6 Lower Body Dressing (QC): 6 On/Off Footwear (QC): 6 Toileting(FIM): 6 Toileting Hygiene (QC): 6 Transfers (B,C,W/C) (FIM): 6 Toilet/Commode Transfer(FIM): 6 Toilet/Commode Transfer (QC): 6 Shower Transfer(FIM): 5 Additional Goals: 1-Demonstrate ADL Tasks, 2-Verbalize Understanding, 3- ImproveStrength/Cassandra 1=Demonstrate adherence to instructed precautions during ADL tasks. 2=Patient will verbalize/demonstrate understanding of assistive devices/ modifications for ADL. 3=Patient will improve strength/tolerance for activity to enable patient to perform ADL's. OT Education/Plan Discharge Recommendations Plan/Recommendations: Continue POC Treatment Plan/Plan of Care Patient would benefit from OT for education, treatment and training to promote independence in ADL's, mobility, safety and/or upper extremity function for ADL' s. Plan of Care: ADL Retraining, Functional Mobility, Group Exercise/Act as Ind, UE Funct Exercise/Act Treatment Duration: Feb 14, 2018 Frequency: 5 times per week Estimated Hrs Per Day: 1.5 hours per day Agreement: Yes Rehab Potential: Good Time/GCodes Start Time: 12:30 Stop Time: 13:35 Total Time Billed (hr/min): 95 Billed Treatment Time 1 visit-ADL 6 (95 min) KEN BURRIS Jan 31, 2018 13:43
[2018-01-31] MEDS ORDERED: MELATONIN 3 MG TABLET PO PRN (13:45)
[2018-01-31] MEDS ORDERED: BENZONATATE 100 MG (TESSALON) CAPSULE PO PRN (13:45)
[2018-01-31] MEDS ORDERED: ANTACID SUSP 30 ML UDC (MYLANTA) PO PRN (13:45)
[2018-01-31] MEDS ORDERED: MILK OF MAGNESIA 400 MG/5 ML 30 ML UDC PO PRN (13:45)
[2018-01-31] MEDS ORDERED: BISACODYL 10 MG SUPP (DULCOLAX) PR PRN (13:45)
[2018-01-31] MEDS ORDERED: guaiFENesin/DM (ROBITUSSIN DM) 10 ML UDC PO PRN (13:45)
[2018-01-31] MEDS ORDERED: ACETAMINOPHEN 325 MG TABLET PO PRN (13:45)
--- NOTE | 2018-01-31 13:46 | PM&R Post Admission Assessment ---
Post Admission Physician Asses Date seen by provider: Jan 31, 2018 Time seen by provider: 13:00 The preadmission screen agrees with the post admission assessment that the patient is a good candidate for inpatient rehabilitation. The patient will have a comprehensive program of inpatient rehabilitation with a goal of maximizing level of functional independence prior to discharge home with [facility]. The patient will have PT/OT ninety minutes per day, each discipline , five days a week for 2 weeks for gait, strengthening, conditioning, balance, ADLs, any patient/family/caregiver training as necessary. Speech therapy to do cognitive assessment and treat as indicated. Rehabilitation nursing to assist with bowel, bladder, skin, medication administration, pain management. [employer] Manager to assist with discharge planning, community reentry. SCD's for DVT prophylaxis. She appears to be well motivated to participate in three hours of therapy a day. She should be able to tolerate three hours of therapy a day from a medical standpoint. She should benefit from the three hours of therapy a day. She has a reasonable discharge plan, reasonable discharge rehabilitation goals and a supportive family. She has various comorbidities that need to be closely monitored with medications and treatments adjusted on a daily basis as needed. These include: Multiple myeloma HTN Bronchitis IGC code 16 Etiologic DX Acute resp distress Barriers to discharge for this patient who had been independent prior to this are for her to be modified independent to supervision for ADLs and mobility skills prior to discharge home with [facility], so as to lessen the burden of the caregivers. Risks for this patient include: 1. Fall 2. Fracture 3. DVT 4. Pulmonary embolism 5. Recurrent Multiple myeloma 6. Skin breakdown 7. Contractures 8. Poorly controlled pain 9. Urinary retention 10. UTI 11. Respiratory infection 12. Aspiration 13..Poorly controlled HTN Estimated Length of Stay: 14 days Prognosis: Rehab prognosis appears good for goal of discharge home with [facility] modified independent to supervision for ADLs and mobility skills Patient currently on 02 did not have home 02. Date Identified: Jan 31, 2018 Time Identified: 13:30 Action Plan to Resolve CSMI: Transfer meds reviewed General: Alert, Oriented X3, Cooperative, No Acute Distress HEENT: Atraumatic, PERRLA, EOMI, Mucous Memb Moist/[place], Other (02 by N/C in Place) Neck: Supple, No JVD Lungs: Other (decreased breath sounds at bases) Heart: Regular Rate Abdomen: Normal Bowel Sounds, Soft, No Tenderness Extremities: Other (trace edema) Skin: No Rashes, No Breakdown Neuro: Other (generalized weakness) TAE MENDOZA MD Jan 31, 2018 13:46
--- NOTE | 2018-01-31 14:40 | Physical Therapy Daily Note ---
PT Daily Note-Current Subjective Agreeable to PT. No complaints. Transfers Therapy Code Descriptions/Definitions Functional [place] Measure: 0=Not Assessed/NA 4=Minimal Assistance 1=Total Assistance 5=Supervision or Setup 2=Maximal Assistance 6=Modified [place] 3=Moderate Assistance 7=Complete [place] Therapy Quality Codes: 6 Independent with activity with or without an assistive device 5 Patient requires set up or clean up by helper. Patient completes activity by themselves 4 Supervision or touching assist (CGA). [place] provide cues , steadying assist 3 The helper provides less than half the effort to complete the activity 2 The helper provides more than half the effort to complete the activity 1 Dependent. The helper does all the effort to complete an activity 7 Patient refused to complete or attempt activity 9 The patient did not perform the activity before the current illness or injury 88 Not attempted due to Medical conditions or safety concerns Transfers (B, C, W/C) (FIM): 4 (CGA) Supine to/from Sit: 4 Sit to/from Stand: 4 CGA with skilled cues for sequencing and safety. Weight Bearing Right Lower Extremity: Right Weight Bearing/Tolerated Left Lower Extremity: Left Weight Bearing/Tolerated Gait Training Does the Patient Walk?: Yes Gait (FIM): 2 Distance (FIM): 4=764-79 ft Distance: 100 ft x 5 reps Exercises Seated Therapy Exercises: Ankle pumps, Sit to stand, Long arc quads, Hip flexion Seated Reps: 15 (to increase LE strength for improved gait and functional activity tolerance. ) Assessment Current Status: Good Progress Tires easily. Good use of hands to stand up but does not reach back to sit down. PT Short Term Goals Short Term Goals Time Frame: Feb 07, 2018 Transfers (B,C,W/C) (FIM): 5 Gait (FIM): 5 Gait Distance Comment: 150' Gait Level of Assist: 5 Gait Assistive Device: FWW PT Reiki Practitioner Goals Reiki Practitioner Goals PT Long-Term Goals Time Frame: Feb 21, 2018 Transfers (B,C,W/C) (FIM): 6 Sit to Lying (QC): 6 Lying-Sitting on Side/Bed(QC): 6 Sit to Stand (QC): 6 Rollin Roll Left to Right (QC): 6 Chair/Ofk-lk-Sluie Xfer(QC): 6 Car Transfer (QC): 6 Gait (FIM): 6 Distance: 200' Walk 10 feet (QC): 6 Walk 10ft-Uneven Surface(QC): 6 Walk 50ft with 2 Turns (QC): 6 Walk 150 ft (QC): 6 Gait Level of Assist: 6 Gait Assistive Device: FWW Stairs (FIM): 2 # of Steps: 4 1 Step (curb) (QC): 4 4 Steps (QC): 4 Stairs Level Of Assist: 5 PT Plan Problem List Problem List: Activity Tolerance, Functional Strength, Safety Treatment/Plan Treatment Plan: Continue Plan of Care Treatment Plan: Bed Mobility, Education, Functional Activity Cassandra, Functional Strength, Group Therapy, Gait, Safety, Therapeutic Exercise, Transfers Treatment Duration: Feb 21, 2018 Frequency: At least 5 of 7 days/Wk (IRF) Estimated Hrs Per Day: 1.5 hours per day Patient and/or Family Agrees t: Yes Safety Risks/Education Patient Education: Transfer Techniques, Safety Issues Teaching Recipient: Patient Teaching Methods: Demonstration, Discussion Response to Teaching: Reinforcement Needed Discharge Recommendations Therapy D/C Recommendations: Physical Therapy Home Care Time/GCodes Time In: 1335 Time Out: 1405 Total Billed Treatment Time: 30 Total Billed Treatment visit GT 15 EX 15 KEN DRISCOLL PT Jan 31, 2018 14:40
[2018-01-31] MEDS: inSUlin ASPART (NovoLOG) 1 UNIT/0.01 ML (CHARGE PER UNIT) SC SCH ×2 (14:55→20:19)
[2018-01-31] MEDS: RT-ALBUTEROL/IPRATROPIUM 3 ML (DUONEB) VIAL INH SCH ×2 (15:02→20:20)
--- NOTE | 2018-01-31 16:02 | ST Cognitive Linguistic Eval ---
Speech Evaluation-General Medical Diagnosis Resp distress with hypoxia, acute bronchitis Onset Date: Jan 27, 2018 Therapy Diagnosis Therapy Diagnosis: Cognitive-communication Precautions Precautions/Isolations: Fall Prevention, Standard Precautions Medical History Pertinent Medical History: Arthritis, HTN, OA Reviewed History: Yes Social History Current Living Status: Alone Speech PLF-Current Status Prior Level of Function Patient lived alone with family support for daily needs. Subjective Patient was pleasant and cooperative. Language Eval: Auditory Comprehends Simple Yes/No Ques: Functional Indent/Objects Multiple Cool: Mild Follows 1-Step Commands: Mild Follows Complex Directions: Moderate Follows General Conversations: Mild Language Eval: Verbal Language Completes Spontaneous Greeting: Functional Produces Auto, Serial Info: Functional Imitates Simple Words/Phrases: Mild Word Finding: Functional Requests Basic Needs: Functional States Basic Personal Info: Mild Expresses Complex Ideas: Moderate Cognitive Patient Orientation Patient is oriented x3 Objective Cognitive Domain Attention: WNL Memory: Moderate Problem Solving: Mild Executive Functions: Mild Objective Formal/Standardized Tests [facility] Cognitive/Communication Results Memory: Immediate: 3/3, Delayed with cues 2/3, Orientation: 4/4, Problem Solving : 3/4, Auditory Comprehension: Simple: 5/5, Complex: 2/5 Oral Motor/Speech Production Within functional limits. Impression Patient is an 82 year old female who presents with mild to moderate deficits in memory and auditory comprehension. Communication/Social Cognition Comprehension: 3 Expression: 3 Social Interaction: 4 Problem Solvin Memory: 2 Speech Patient Assess Expression of Ideas/Wants: Exhibits (3) Understanding Verbal Content: Sometimes Understands(2) Brief Interview-Mental Status: Yes Repetition of Three Words: Three (3) Temporal Orientation: Year: Correct (3) Temporal Orientation: Month: Accurate within 5 days(2) Temporal Orientation: Day: Correct (1) Recall : Wear to say "Sock": Yes,after cueing (1) Recall : Color: Yes, after cueing (1) Recall : Bed: Yes,after cueing (1) Memory/Recall Ability: Current season, That he or she is in a hsp/hsp unit Speech Short Term Goals Short Term Goals Short Term Goals 1) Patient will remember objects and their function with 90% accuracy, independently. 2) Patient will complete word finding exercises with 90% accuracy, independently. Speech Rent Control Office Manager Goals Fpc Goals Patient will improve memory and comprehension for increased safety awareness and independence. Comprehension: 6 Expression: 7 Social Interaction: 7 Problem Solvin Memory: 7 Speech-Plan Patient/Family Goals Patient/Family Goals: Patient plans to return home with family support post rehab. Treatment Plan Speech Therapy Treatment Plan: Continue Plan of Care Patient is recommended for skilled ST based on evaluation and clinical judgement. Treatment Duration: Feb 08, 2018 Frequency: 5 times per week Estimated Hrs Per Day: .5 hour per day Rehab Potential: Good Barriers to Learning: Patient has decreased memory. Pt/Family Agrees to Plan: Yes Safety Risks/Education Teaching Recipient: Patient, Family Teaching Methods: Discussion Response to Teaching: Verbalize Understanding Education Topics Provided: Safety within her room. Time Speech Therapy Time In: 15:30 Speech Therapy Time Out: 15:45 Total Billed Time: 15 Billed Treatment Time [address] Jan 31, 2018 16:02
[2018-01-31 17:31] VITALS: BP 119/68
[2018-01-31] MEDS: RIVAROXABAN 15 MG TABLET (XARELTO) PO SCH (17:33)
[2018-01-31] MEDS: GABAPENTIN 300 MG (NEURONTIN) CAP PO SCH (21:03)
[2018-01-31] MEDS: MIRTAZAPINE 15 MG (REMERON) TAB PO SCH (21:03)
[2018-02-01 05:37] VITALS: BP 126/77
[2018-02-01] MEDS: inSUlin ASPART (NovoLOG) 1 UNIT/0.01 ML (CHARGE PER UNIT) SC SCH ×4 (05:40→21:50)
[2018-02-01] MEDS: RT-ALBUTEROL/IPRATROPIUM 3 ML (DUONEB) VIAL INH SCH ×4 (06:19→19:21)
[2018-02-01] MEDS: PANTOPRAZOLE 20 MG TABLET (PROTONIX) PO SCH (06:19)
[2018-02-01] MEDS: SOTALOL 80 MG (BETAPACE) TAB PO SCH (08:17)
[2018-02-01] MEDS: MONTELUKAST 10 MG (SINGULAIR) TAB PO SCH (08:17)
[2018-02-01] MEDS: LORazepam 0.5 MG (ATIVAN) TABLET PO SCH (08:17)
[2018-02-01] MEDS: GABAPENTIN 300 MG (NEURONTIN) CAP PO SCH ×2 (08:17→21:51)
[2018-02-01] MEDS: LOSARTAN 50 MG (COZAAR) TAB PO SCH (08:18)
--- NOTE | 2018-02-01 09:09 | Occupational Ther Daily Note ---
OT Current Status-Daily Note Subjective Pt alert, sitting in recliner. Pt just finished up with PT. Pt agrees to therapy. No c/o pain at this time. Mental Status/Objective Patient Orientation: Person, Place, Time Therapy Code Descriptions/Definitions Functional [place] Measure: 0=Not Assessed/NA 4=Minimal Assistance 1=Total Assistance 5=Supervision or Setup 2=Maximal Assistance 6=Modified [place] 3=Moderate Assistance 7=Complete [place] Attachments: IV, Oxygen ADL-Treatment Pt declined shower. Pt ambulated to retrieve clothing then to bathroom using 4WW. Pt washed up at sink sitting on 4WW seat, supervision. Pt transferred to toilet using grabbars and 4WW, supervision. Completed toileting by self. Introduced pt to AE for lower body dressing. Verbal cues when using AE for instruction. Pt able to doff pants by self. Don pants using AE, min A. Pt donned shoes by self using long handle shoe horn. Therapy Code Descriptions/Definitions Functional [place] Measure: 0=Not Assessed/NA 4=Minimal Assistance 1=Total Assistance 5=Supervision or Setup 2=Maximal Assistance 6=Modified [place] 3=Moderate Assistance 7=Complete [place] Therapy Quality Codes: 6 Independent with activity with or without an assistive device 5 Patient requires set up or clean up by helper. Patient completes activity by themselves 4 Supervision or touching assist (CGA). [place] provide cues , steadying assist 3 The helper provides less than half the effort to complete the activity 2 The helper provides more than half the effort to complete the activity 1 Dependent. The helper does all the effort to complete an activity 7 Patient refused to complete or attempt activity 9 The patient did not perform the activity before the current illness or injury 88 Not attempted due to Medical conditions or safety concerns Grooming (FIM): 5 Oral Hygiene (QC): 5 Upper Body (FIM): 5 Upper Body Dressing (QC): 5 Lower Body Dressing (FIM): 4 Lower Body Dressing (QC): 3 Toileting (FIM): 6 Toileting Hygiene (QC): 6 Toilet/Commode Transfer (FIM): 5 Toilet Transfer (QC): 4 Other Treatment Pt completed fine motor strengthening tasks to increase actuarial intern/pinch strength for daily functional tasks. After therapy, pt lying in bed with call light/phone in reach. All needs met in room. OT Short Term Goals Short Term Goals Time Frame: Feb 07, 2018 Eating(FIM): 5 Grooming(FIM): 5 Bathing(FIM): 4 Upper Body Dressing(FIM): 5 Lower Body Dressing(FIM): 5 Toileting(FIM): 5 Transfers (B,C,W/C) (FIM): 5 Toilet/Commode Transfer(FIM): 5 Shower Transfer(FIM): 4 Additional Short Term Goals: 1-Demonstrate ADL Tasks, 2-Verbalize Understanding , 3-ImproveStrength/Cassandra 1=Demonstrate adherence to instructed precautions during ADL tasks. 2=Patient will verbalize/demonstrate understanding of assistive devices/ modifications for ADL. 3=Patient will improve strength/tolerance for activity to enable patient to perform ADL's. OT Half-Way Goals Half-Way Goals Time Frame: Feb 14, 2018 Eating (FIM): 6 Eating (QC): 6 Groomin Oral Hygiene (QC): 6 Bathing(FIM): 5 Shower/Bathe Self (QC): 4 Upper Body Dressing(FIM): 6 Upper Body Dressing (QC): 6 Lower Body Dressing(FIM): 6 Lower Body Dressing (QC): 6 On/Off Footwear (QC): 6 Toileting(FIM): 6 Toileting Hygiene (QC): 6 Transfers (B,C,W/C) (FIM): 6 Toilet/Commode Transfer(FIM): 6 Toilet/Commode Transfer (QC): 6 Shower Transfer(FIM): 5 Comprehension(FIM): 6 Expression (FIM): 7 Social Interaction(FIM): 7 Problem Solving(FIM): 7 Memory(FIM): 7 Additional Goals: 1-Demonstrate ADL Tasks, 2-Verbalize Understanding, 3- ImproveStrength/Cassandra 1=Demonstrate adherence to instructed precautions during ADL tasks. 2=Patient will verbalize/demonstrate understanding of assistive devices/ modifications for ADL. 3=Patient will improve strength/tolerance for activity to enable patient to perform ADL's. OT Education/Plan Discharge Recommendations Plan/Recommendations: Continue POC Treatment Plan/Plan of Care Patient would benefit from OT for education, treatment and training to promote independence in ADL's, mobility, safety and/or upper extremity function for ADL' s. Plan of Care: ADL Retraining, Functional Mobility, Group Exercise/Act as Ind, UE Funct Exercise/Act Treatment Duration: Feb 14, 2018 Frequency: 5 times per week Estimated Hrs Per Day: 1.5 hours per day Agreement: Yes Rehab Potential: Good Time/GCodes Start Time: 09:00 Stop Time: 10:00 Total Time Billed (hr/min): 60 Billed Treatment Time 1 visit-ADL 3 (45 min) EX 1 (15 min) KEN BURRIS Feb 01, 2018 09:09
--- NOTE | 2018-02-01 10:44 | Oncology Progress Note ---
Subjective Date Seen by a Provider: Feb 01, 2018 Time Seen by a Provider: 10:41 Subjective/Events-last exam Pt was transferred to acute rehab. Overall slowly improving. O2 sat 91% on 5L NC, 81% on room air Able to walk short distance today. Chemo on hold. Data Review Labs Laboratory Tests 01/31/18 14:38: 02/01/18 05:10: 02/01/18 09:46: Glucometer 130H Physical Exam Vital Signs Vital Signs - First Documented 01/31/18 11:15 Temp 98.0 Pulse 80 Resp 22 B/P (MAP) 103/69 (80) Pulse Ox 95 O2 Delivery Nasal Cannula O2 Flow Rate 5.00 Capillary Refill : Height, Weight, BMI Height: 5'3.00" Weight: 165lbs. 0.0oz. [id number]; 29.2 BMI Method:Stated General Appearance: No Apparent Distress HEENT: PERRL/EOMI Neck: Non Tender, Supple Respiratory: No Accessory Muscle Use, No Respiratory Distress Extremity: Pedal Edema Neurologic/Psychiatric: Alert, Oriented x3 Impression & Plan Impression & Plan IMP: 1. Hypoxia, persistent cough and pulmonary congestions/edema. Slowly improving. 2. Multiple myeloma disease stable on current chemo Bladimir+Dex. Last dose 2017 3. Leukopenia 4. h/o CAD, Pace Maker and CHF 5. Acute renal failure, improving Cr 1.7 now down to 1.1 6. On rehab Plan: 1. Hold off chemo for a month until she fully recovers from this event. 2. Cough syrup 3. physical therapy 4. Dr Boogie to decide discharge plan. 5. Dr Cardozo covers for the weekend. Clinical Quality Measures DVT/VTE Risk/Contraindication: Risk Factor Score Per Nursin RFS Level Per Nursing on Admit: 2=Moderate PAN GARRISON MD Feb 01, 2018 10:44
--- NOTE | 2018-02-01 11:03 | Physical Therapy Daily Note ---
PT Daily Note-Current Subjective Pt alert and oriented. Agreeable to therapy. No c/o pain. Mental Status Attachments: Oxygen oxygen 4L during treatment Transfers Therapy Code Descriptions/Definitions Functional [place] Measure: 0=Not Assessed/NA 4=Minimal Assistance 1=Total Assistance 5=Supervision or Setup 2=Maximal Assistance 6=Modified [place] 3=Moderate Assistance 7=Complete [place] Therapy Quality Codes: 6 Independent with activity with or without an assistive device 5 Patient requires set up or clean up by helper. Patient completes activity by themselves 4 Supervision or touching assist (CGA). [place] provide cues , steadying assist 3 The helper provides less than half the effort to complete the activity 2 The helper provides more than half the effort to complete the activity 1 Dependent. The helper does all the effort to complete an activity 7 Patient refused to complete or attempt activity 9 The patient did not perform the activity before the current illness or injury 88 Not attempted due to Medical conditions or safety concerns Transfers (B, C, W/C) (FIM): 5 supervision during transfers with intermittent verbal cues for sequence and suggestions for safety. Weight Bearing Right Lower Extremity: Right Weight Bearing/Tolerated Left Lower Extremity: Left Weight Bearing/Tolerated Gait Training Gait (FIM): 5 Gait Assistive Device: Walker 4 Wheeled Ambulate with 4 wheel walker 6 bouts of 150-200ft with SBA and therapist managing O2 tank and lines Stair Training Stairs (FIM): 4 Level of Assist: 4 12 steps with (B) rails and Min A for stability and management of oxygen tubing. Verbal cues for sequence to lead with left leg (strong side) and descend with weaker leg Exercises Seated Therapy Exercises: Ankle pumps, Sit to stand, Long arc quads, Hip flexion, Kicking activity, Hip abd/add Seated Reps: 20 Standing: Hip Abduction, Heel/toe raises, Marching, Mini squats Standing Reps: 20 NuStep Minutes: 10 NuStep Workload: 5 Assessment Current Status: Good Progress Exercises focused on functional strength gains to aid in balance, transfers, gait, and bed mobility. Pt demonstrated good safety during treatment session. Gait was stable. Pt progressing toward fpc goals and will benefit from continued therapy. PT Short Term Goals Short Term Goals Time Frame: Feb 07, 2018 Transfers (B,C,W/C) (FIM): 5 Gait (FIM): 5 Gait Distance Comment: 150' Gait Level of Assist: 5 Gait Assistive Device: FWW PT Rehab Therapist Goals Detention Goals PT Detention Goals Time Frame: Feb 21, 2018 Transfers (B,C,W/C) (FIM): 6 Sit to Lying (QC): 6 Lying-Sitting on Side/Bed(QC): 6 Sit to Stand (QC): 6 Rollin Roll Left to Right (QC): 6 Chair/Hcx-hx-Erail Xfer(QC): 6 Car Transfer (QC): 6 Gait (FIM): 6 Distance: 200' Walk 10 feet (QC): 6 Walk 10ft-Uneven Surface(QC): 6 Walk 50ft with 2 Turns (QC): 6 Walk 150 ft (QC): 6 Gait Level of Assist: 6 Gait Assistive Device: FWW Stairs (FIM): 2 # of Steps: 4 1 Step (curb) (QC): 4 4 Steps (QC): 4 Stairs Level Of Assist: 5 PT Plan Treatment/Plan Treatment Plan: Continue Plan of Care Treatment Plan: Bed Mobility, Education, Functional Activity Cassandra, Functional Strength, Group Therapy, Gait, Safety, Therapeutic Exercise, Transfers Treatment Duration: Feb 21, 2018 Frequency: At least 5 of 7 days/Wk (IRF) Estimated Hrs Per Day: 1.5 hours per day Patient and/or Family Agrees t: Yes Safety Risks/Education Patient Education: Gait Training Time/GCodes Time In: 800 Time Out: 900 Total Billed Treatment Time: 60 Total Billed Treatment visit, gait 15min, exercise 45 min MIKE LANGLEY PT Feb 01, 2018 11:03
--- NOTE | 2018-02-01 14:49 | Therapy Group Daily Note ---
Therapy Daily Group Note Patient Education Topic Other List Below (Memory strategies, ARU description/expectations, benefits of exercise) Exercises LE Seated Exercise, UE Exercise Other/Notes [place] [facility] [place]. Group consisted of introductions (name, place living, reason admitted to [facility]), socialization, education topics (ARU, exercise, memory), UE/LE seated exercises and memory activities. Pt introduced self appropriately and actively listened to peers. Verbalized understanding of educational topics and was able to stated personal strategies. Pt contributed to conversation to peers and actively initiated conversations. Pt was able to follow direction and complete seated exercises. After therapy, pt lying in bed with call light/phone in reach. All needs met in room. Start Time: 13:00 Stop Time: 14:15 Total Billed Treatment Time: 75 Total Billed Treatment 1-GRP KEN BURRIS Feb 01, 2018 14:49
--- NOTE | 2018-02-01 15:26 | PM & R (SOAP) Progress Note ---
Subjective This was a face to face visit with the patient. Date Seen by Provider: Feb 01, 2018 Time Seen by Provider: 15:15 Subjective/Events-last exam Patient was seen in her room this afternoon Adjusting well to unit Patient SBA for transfers Review of Systems Pulmonary: Dyspnea Neurological: Weakness Objective Physician Exam Last Set of Vital Signs Vital Signs Date Time Temp Pulse Resp B/P (MAP) Pulse Ox O2 Delivery O2 Flow Rate FiO2 02/01/18 14:36 92 Nasal Cannula 5.00 02/01/18 05:37 98.0 66 18 126/77 (93) Capillary Refill : I&O Intake and Output 02/01/18 00:00 Intake Total 720 ml Balance 720 ml Intake Oral 720 ml # Voids 1 # Urine Diapers 1 # Bowel Movements 1 Daily Weight Change No General: Alert, Oriented X3, Cooperative, No Acute Distress HEENT: Atraumatic, PERRLA, EOMI, Mucous Memb Moist/[place], Other (02 by N/C in Place) Neck: Supple, No JVD Lungs: Other (decreased breath sounds at bases) Heart: Regular Rate Abdomen: Normal Bowel Sounds, Soft, No Tenderness Extremities: Other (trace edema) Skin: No Rashes, No Breakdown Neuro: Other (generalized weakness) Results Lab Data Laboratory Tests 01/31/18 14:38: Glucometer 77 02/01/18 05:10: Glucometer 93 02/01/18 09:46: Glucometer 130H Assessment/Plan Assessment and Plan General debil secondary to Bout of bronchitis 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
--- NOTE | 2018-02-01 15:27 | Speech Therapy Daily Note ---
Speech Daily Progress Note Subjective Date Seen by Provider: Feb 01, 2018 Time Seen by Provider: 00:30 Patient was pleasant and cooperative. She stated she feels much more rested today. Objective Patient completed simple memory tasks at 80% with min to mod repetitions. Assessment Assessment Current Status: Fair Progress Treatment Plan Continue Plan of Care Communication Comprehension: 3 Expression: 3 Social Cognition Social Interaction: 4 Problem Solvin Memory: 2 Speech Short Term Goals Short Term Goals Short Term Goals 1) Patient will remember objects and their function with 90% accuracy, independently. 2) Patient will complete word finding exercises with 90% accuracy, independently. Speech Nursing Home Goals Underwriting Service Representative Goals Patient will improve memory and comprehension for increased safety awareness and independence. Comprehension: 6 Expression: 7 Social Interaction: 7 Problem Solvin Memory: 7 Speech-Plan Patient/Family Goals Patient/Family Goals: Patient plans to return home with family support post rehab. Treatment Plan Speech Therapy Treatment Plan: Continue Plan of Care Patient is settling in to the ARU well. Treatment Duration: Feb 08, 2018 Frequency: 5 times per week Estimated Hrs Per Day: .5 hour per day Rehab Potential: Good Barriers to Learning: Patient tires easily. Pt/Family Agrees to Plan: Yes Safety Risks/Education Teaching Recipient: Patient Teaching Methods: Discussion Response to Teaching: Verbalize Understanding Education Topics Provided: Safety within her room. Time Speech Therapy Time In: 14:40 Speech Therapy Time Out: 15:10 Total Billed Time: 30 Billed Treatment Time [address] Feb 01, 2018 15:27
--- NOTE | 2018-02-01 16:23 | HISTORY AND PHYSICAL ---
DATE OF SERVICE: 01/31/2018 ADMISSION HISTORY AND PHYSICAL CHIEF COMPLAINT: Difficulty with walking. HISTORY OF PRESENT ILLNESS: The patient is an 82-year-old female, who was admitted to [facility] via the ED due to wheezing and shortness of breath. Chest x-ray revealed suggestion of pulmonary edema. Cardiology was consulted. Episode of confusion was felt to be due to hypoxia. She had one episode of nonsustained ventricular tachycardia noted on pacemaker interrogation on 01/31/2018, it was asymptomatic. She was provided with diuresis. She had decline in functional independence and was referred to inpatient rehabilitation unit. She was managed by hospitalist service in lieu of Dr. Palma, PCP. The patient is now referred to inpatient rehabilitation unit due to decline in functional independence. She was currently on O2 by nasal cannula. Currently, she is min assist with lower body dressing, set up for upper body dressing. She had been independent prior to this and still driving. She does have a cane and walker at home. She lives in [place], [place] alone. She does have a daughter in [place]. She is min assist for gait with a front wheel walker, min assist for transfers. PAST MEDICAL HISTORY: [facility] myel[facility], hypercholesterolemia, hypertension, hemorrhoids, melanoma. PAST SURGICAL HISTORY: Bilateral total knee replacements, rectal fistula repair. ALLERGIES: No known medication allergies. FAMILY HISTORY: Noncontributory. SOCIAL HISTORY: Essentially, as per above. REVIEW OF SYSTEMS: A 10-point review of systems is significant for shortness of breath. MEDICATIONS: 1. Ativan 0.5 mg p.o. daily. 2. Cozaar 50 mg p.o. daily. 3. Singulair 10 mg p.o. daily. 4. Betapace 80 mg p.o. daily. 5. Protonix 20 mg p.o. daily. 6. Gabapentin 300 mg p.o. b.i.d. 7. Remeron 30 mg p.o. at bedtime. 8. Xarelto 15 mg p.o. daily. 9. DuoNeb treatments q.i.d. 10. Sliding scale insulin regimen A. 11. Tylenol 650 mg p.o. q.4 hours p.r.n. mild pain. 12. Melatonin 3 mg p.o. at bedtime p.r.n. insomnia. 13. Tessalon 100 mg p.o. t.i.d. p.r.n. cough. 14. Robitussin-DM 5 mL p.o. q.4 hours p.r.n. cough. PHYSICAL EXAMINATION: GENERAL: Significant for a pleasant obese female appearing stated age, alert and oriented, no acute distress. VITAL SIGNS: She is afebrile, pulse is 66, respirations 18, blood pressure 126/77, O2 sat 92% on 5 liters, 81% on room air. HEENT: Vision, speech, hearing grossly intact. No oral lesions are noted. O2 by nasal cannula in place. NECK: Supple without mass. HEART: Regular rhythm. CHEST: Clear. ABDOMEN: Soft, nontender. Bowel sounds are present. EXTREMITIES: Trace edema in both ankles, no calf tenderness. MUSCULOSKELETAL: She has functional active range of motion in all 4 limbs. NEUROLOGIC: Sensation is grossly intact to touch. Cognition grossly intact. She does have limited range of motion of both shoulders, approximately 90 degrees. Strength in lower limbs 4+/5. Sensation is grossly intact to touch. IMPRESSION: 1. General debilitation secondary to acute exacerbation of chronic obstructive pulmonary disease. 2. Hypertension, controlled with medication. 3. Multiple myeloma followed by [facility]. 4. Hypercholesterolemia. 5. Osteoarthritis, status post bilateral total knee replacements. PLAN: The patient is admitted to the IRU for a comprehensive program of inpatient rehabilitation with goal of maximizing level of functional independence prior to discharge home with home health care. The patient will have PT and OT 90 minutes per day each discipline 5 days a week with the above goals in mind. Speech therapy to do cognitive assessment and treat as indicated. Please see post-admission physician evaluation, which is a separate document for details of plan of care. Follow up with medical oncology and hospitalist service as per their schedule. polysilicon preparation worker to assist with discharge planning and community reentry. Monitor Accu-Cheks and adjust medications as necessary. ESTIMATED LENGTH OF STAY: 10 days. PROGNOSIS: Rehab prognosis appears good for goal of discharging home with home health care, modified independent to supervision for ADLs and mobility skills. DIET: Heart healthy. CODE STATUS: Full code. Job ID: [id number] DocumentID: [id number] Dictated Date: 02/01/2018 15:21:22 Lockstitch Tunnel Elastic Operator Date: 02/01/2018 16:22:27 Dictated By: TAE MENDOZA MD [facility]
[2018-02-01 17:06] VITALS: BP 114/75
[2018-02-01] MEDS: RIVAROXABAN 15 MG TABLET (XARELTO) PO SCH (17:12)
[2018-02-01] MEDS: MIRTAZAPINE 15 MG (REMERON) TAB PO SCH (21:51)
[2018-02-02 06:00] VITALS: BP 107/70
[2018-02-02] MEDS: inSUlin ASPART (NovoLOG) 1 UNIT/0.01 ML (CHARGE PER UNIT) SC SCH ×4 (06:00→19:30)
[2018-02-02] MEDS: PANTOPRAZOLE 20 MG TABLET (PROTONIX) PO SCH (06:48)
[2018-02-02] MEDS: RT-ALBUTEROL/IPRATROPIUM 3 ML (DUONEB) VIAL INH SCH ×2 (07:19→19:15)
--- NOTE | 2018-02-02 07:47 | PM & R (SOAP) Progress Note ---
Subjective This was a face to face visit with the patient. Date Seen by Provider: Feb 02, 2018 Time Seen by Provider: 07:20 Subjective/Events-last exam Patient was seen in her room this AM Patient SBA for transfers Review of Systems Pulmonary: Dyspnea Neurological: Weakness Objective Physician Exam Last Set of Vital Signs Vital Signs Date Time Temp Pulse Resp B/P (MAP) Pulse Ox O2 Delivery O2 Flow Rate FiO2 02/02/18 07:19 95 Nasal Cannula 5.00 02/02/18 06:00 98.6 57 18 107/70 (82) Capillary Refill : I&O Intake and Output 02/02/18 00:00 Intake Total 1120 ml Balance 1120 ml Intake Oral 1120 ml # Voids 3 # Bowel Movements 1 General: Alert, Oriented X3, Cooperative, No Acute Distress HEENT: Atraumatic, PERRLA, EOMI, Mucous Memb Moist/[place], Other (02 by N/C in Place) Neck: Supple, No JVD Lungs: Other (decreased breath sounds at bases) Heart: Regular Rate Abdomen: Normal Bowel Sounds, Soft, No Tenderness Extremities: Other (trace edema) Skin: No Rashes, No Breakdown Neuro: Other (generalized weakness) Results Lab Data Laboratory Tests 01/31/18 14:38: Glucometer 77 02/01/18 05:10: Glucometer 93 02/01/18 09:46: Glucometer 130H 02/01/18 21:03: Glucometer 209H 02/01/18 21:49: Glucometer 194H 02/02/18 06:12: Glucometer 110 Assessment/Plan Assessment and Plan General debil secondary to bout of Bronchitis 02 dependence HTN OA s/p Bilateral TKRS Multiple myeloma followed by [facility] Hypercholesteremia S/P Pacemaker Plan Continue PT/OT Team Conference next week Wean from [address] Dee note Co-Morbidities that are continuing to impact the rehab process: (include details ) TAE MENDOZA MD Feb 02, 2018 07:47
--- NOTE | 2018-02-02 07:53 | Individualized Plan of Care ---
Individualized Plan of Care Rehab Nursing IPOC Order Admission Date Jan 31, 2018 at 11:25 Current Orders Orders Pt Evaluate/Treat Request (01/31/18 09:43) Weight Bearing Status (01/31/18 09:43) Request Ot Evaluate & Treat (01/31/18 09:43) Speech Therapy Orders (01/31/18 09:43) Admission Arrival Bed Request (01/31/18 11:00) Heart Healthy (01/31/18 Lunch) Admission Order(Inpt,Obs,Sdc) (01/31/18 11:59) Code/Resuscitation (01/31/18 11:59) Initiate Admission Nursing Pro .admission (01/31/18 11:59) Isolation Central Supply Req (01/31/18 11:59) Ambulate 08,12,20 (01/31/18 12:11) Sequential Compression Device 08,20 (01/31/18 12:11) Dvt/Vte Risk - Notifiy Physici 08 (01/31/18 12:11) Vital Signs: Routine (Order) 08,16,00 (01/31/18 13:34) Sequential Compression Device 08,20 (01/31/18 13:34) Senior Financial Reporting Analyst-Inpt Rehab Con (01/31/18 13:34) Rehab Nursing Orders-Ipoc (01/31/18 13:34) Turn And Reposition Q2HR (01/31/18 13:34) Intake & Output 06,14,22 (01/31/18 13:34) Weekly Weight (Lbs) WEEK (01/31/18 13:34) Code/Resuscitation (01/31/18 13:37) Accucheck 2 Hr Postpr & Fastin 0930,1430,1930 (01/31/18 13:37) Heart Healthy (01/31/18 Dinner) Acetaminophen Tablet/[place] (Tylenol T (01/31/18 13:45) Albuterol/Ipra Inhalation Soln (Duoneb I (01/31/18 15:00) Bisacodyl Suppository (Dulcolax Supposit (01/31/18 13:45) Gabapentin Capsule/Tablet (Neurontin Cap (01/31/18 21:00) Lorazepam Tablet (Ativan Tablet) (02/01/18 09:00) Losartan Tablet (Cozaar Tablet) (02/01/18 09:00) Melatonin Tablet (Melatonin Tablet) (01/31/18 13:45) Magnesium Hydroxide Oral Susp (Mom Oral (01/31/18 13:45) Mirtazapine Tablet (Remeron Tablet) (01/31/18 21:00) Montelukast Tablet (Singulair Tablet) (02/01/18 09:00) Antacid Suspension (Mylanta Suspension (01/31/18 13:45) Pantoprazole Tablet (Protonix Tablet) (02/01/18 07:00) Rivaroxaban Tablet (Xarelto Tablet) (01/31/18 17:00) Sotalol Tablet (Betapace Tablet) (02/01/18 09:00) Benzonatate Capsule (Tessalon Perles) (01/31/18 13:45) Guaifenesin/Dm Syrup (Robitussin Dm Syru (01/31/18 13:45) Insulin Aspart (Novolog) (Novolog (Charg (01/31/18 14:30) Consult Physician (01/31/18 13:37) Mat Initiate Protocol (01/31/18 13:37) Svn Small Volume Nebulizer (01/31/18 13:37) Svn Small Volume Nebulizer (01/31/18 13:37) Consult Physician (01/31/18 13:39) Patient Visit (01/31/18 ) Pt Eval Moderate Complexity (01/31/18 ) Gait Training, Ea 15 Min (01/31/18 ) Exercise Therap, Ea 15 Min (01/31/18 ) Patient Visit (01/31/18 ) Exercise Therap, Ea 15 Min (01/31/18 ) Gait Training, Ea 15 Min (01/31/18 ) Patient Visit (01/31/18 ) Speech Sound Lang Comp (01/31/18 ) Patient Visit (02/01/18 ) Treat. Speech/Lang/Voice (02/01/18 ) Patient Visit (02/01/18 ) Gait Training, Ea 15 Min (02/01/18 ) Exercise Therap, Ea 15 Min (02/01/18 ) Rehab Nursing Orders: Ongoing Assess. of Cognitive Status, Ongoing Assess. of Function Status, Disease Management & Educaiton, DVT Prophylaxis, Fall Prevention, Fluid/Electrolyte/Nutrition Mgmt, Infection Prevention, Medication Management & Education, Management of Risks & Complications, Management of Skin Intergrity, Nutrition Management, Pain Management, Patient/Family Support PT IPOC Problem List: Activity Tolerance, Functional Strength, Safety Treatment Plan: Continue Plan of Care Bed Mobility, Education, Functional Activity Cassandra, Functional Strength, Group Therapy, Gait, Safety, Therapeutic Exercise, Transfers Treatment Duration: Feb 21, 2018 Frequency: At least 5 of 7 days/Wk (IRF) Estimated Hrs Per Day: 1.5 hours per day OT IPOC Problems: Decreased Activ Tolerance, Impaired I ADL's, Impaired Self-Care Skills OT Treatment, Training and Edu: Yes Plan of Care: ADL Retraining, Functional Mobility, Group Exercise/Act as Ind, UE Funct Exercise/Act Treatment Duration: Feb 14, 2018 Frequency: 5 times per week Estimated Hrs Per Day: 1.[address] IPOC Speech Therapy Treatment Plan: Continue Plan of Care Treatment Duration: Feb 08, 2018 Frequency: 5 times per week Estimated Hrs Per Day: .5 hour per day Senior Financial Reporting Analyst/Case Mgmt Senior Financial Reporting Analyst/Case Managemen: Discharge Planning, Patient/Family Counseling Dietitian/Metal Tile Setter Dietitian/Metal Tile Setter to monitor nutritional status and make changes and/or recommendations as needed and work with speech pathology on dietary upgrades as the occur. Physician IPOC Medical Issues being managed closely and that require the 24 hour availability of a physician: 02 dependence Multiple myeloma S/P pacemaker IGC code 16 Etiologic DX Acute resp distress Medical Issues: DVT Prophylaxis, Falls Precautions, Infection Protection, Other (List) (as per above) Brief Synthesis of Preadmission Screen, Post-Admission Evaluation, and Therapy Evaluations:82 yo female who had been Independent who had a decline in function s/p treatment for acute bronchitis-currently 02 dependent PMH multiple myeloma in remission followed by [facility] HTN S/P pacemaker Mild cognitive deficits which ST is treating with compensatory techniques Medical Prognosis: Good Anticipated Length of Stay: 02-14-18 Modified Independent for adls and mobility skills Anticipated d/c Destination: Home with TAE MCDUFFIE MD Feb 02, 2018 07:53
[2018-02-02 08:29] VITALS: BP 113/66
[2018-02-02] MEDS: GABAPENTIN 300 MG (NEURONTIN) CAP PO SCH ×2 (08:29→20:17)
[2018-02-02] MEDS: SOTALOL 80 MG (BETAPACE) TAB PO SCH (08:29)
[2018-02-02] MEDS: MONTELUKAST 10 MG (SINGULAIR) TAB PO SCH (08:29)
[2018-02-02] MEDS: LOSARTAN 50 MG (COZAAR) TAB PO SCH (08:29)
[2018-02-02] MEDS: LORazepam 0.5 MG (ATIVAN) TABLET PO SCH (08:29)
--- NOTE | 2018-02-02 10:24 | Physical Therapy Daily Note ---
PT Daily Note-Current Subjective Pt sitting up in bed upon arrival. Pt agrees to PT. Pt reports feeling good today and wanting to go home. Mental Status Patient Orientation: Person, Place Attachments: Oxygen (5L) Transfers Therapy Code Descriptions/Definitions Functional [place] Measure: 0=Not Assessed/NA 4=Minimal Assistance 1=Total Assistance 5=Supervision or Setup 2=Maximal Assistance 6=Modified [place] 3=Moderate Assistance 7=Complete [place] Therapy Quality Codes: 6 Independent with activity with or without an assistive device 5 Patient requires set up or clean up by helper. Patient completes activity by themselves 4 Supervision or touching assist (CGA). [place] provide cues , steadying assist 3 The helper provides less than half the effort to complete the activity 2 The helper provides more than half the effort to complete the activity 1 Dependent. The helper does all the effort to complete an activity 7 Patient refused to complete or attempt activity 9 The patient did not perform the activity before the current illness or injury 88 Not attempted due to Medical conditions or safety concerns Scootin Rollin Supine to/from Sit: 5 Sit to/from Stand: 5 Sit to Stand (QC): 5 Weight Bearing Right Lower Extremity: Right Weight Bearing/Tolerated Left Lower Extremity: Left Weight Bearing/Tolerated Gait Training Does the Patient Walk?: Yes Distance (FIM): 1=up to 49 ft Distance: 20' Walk 10 feet (QC): 5 Gait Level of Assist: 5 Gait Persons Needed: 1 Gait Assistive Device: Walker 4 Wheeled CENTER CONSULTANT assists with O2 management. Treatments Pt sits up to take morning meds given by Nurse. Pt transfers from Supine to EOB to Standing at SBA. CENTER CONSULTANT assists pt with management of O2 line while pt ambulates to restroom. Pt is able to complete pericare and wash hands standing at sink. Pt returns to recliner to rest and eat breakfast at end of tx with all needs met. Assessment Current Status: Good Progress Pt fatigues, needing rest break at end of walk. Pt also sometimes gets tangled/ runs over O2 tubing while ambulating. PT Short Term Goals Short Term Goals Time Frame: Feb 07, 2018 Transfers (B,C,W/C) (FIM): 5 Gait (FIM): 5 Gait Distance Comment: 150' Gait Level of Assist: 5 Gait Assistive Device: FWW PT Mainframe Consultant Goals Fpc Goals PT Fpc Goals Time Frame: Feb 21, 2018 Transfers (B,C,W/C) (FIM): 6 Sit to Lying (QC): 6 Lying-Sitting on Side/Bed(QC): 6 Sit to Stand (QC): 6 Rollin Roll Left to Right (QC): 6 Chair/Idm-zm-Fbqrr Xfer(QC): 6 Car Transfer (QC): 6 Gait (FIM): 6 Distance: 200' Walk 10 feet (QC): 6 Walk 10ft-Uneven Surface(QC): 6 Walk 50ft with 2 Turns (QC): 6 Walk 150 ft (QC): 6 Gait Level of Assist: 6 Gait Assistive Device: FWW Stairs (FIM): 2 # of Steps: 4 1 Step (curb) (QC): 4 4 Steps (QC): 4 Stairs Level Of Assist: 5 PT Plan Problem List Problem List: Activity Tolerance, Safety Treatment/Plan Treatment Plan: Continue Plan of Care Treatment Plan: Bed Mobility, Education, Functional Activity Cassandra, Functional Strength, Group Therapy, Gait, Safety, Therapeutic Exercise, Transfers Treatment Duration: Feb 21, 2018 Frequency: At least 5 of 7 days/Wk (IRF) Estimated Hrs Per Day: 1.5 hours per day Patient and/or Family Agrees t: Yes Safety Risks/Education Patient Education: Gait Training, Transfer Techniques, Correct Positioning, Safety Issues Teaching Recipient: Patient Teaching Methods: Discussion Response to Teaching: Verbalize Understanding Time/GCodes Time In: 825 Time Out: 848 Total Billed Treatment Time: 23 Total Billed Treatment 1, FA x2 (23m) G Codes Necessary: BEKAH Wallace PTA Feb 02, 2018 10:23
[2018-02-02 18:00] VITALS: BP 94/60
[2018-02-02] MEDS: RIVAROXABAN 15 MG TABLET (XARELTO) PO SCH (18:09)
[2018-02-02] MEDS: MIRTAZAPINE 15 MG (REMERON) TAB PO SCH (20:17)
[2018-02-03 05:56] VITALS: BP 163/97
[2018-02-03] MEDS: inSUlin ASPART (NovoLOG) 1 UNIT/0.01 ML (CHARGE PER UNIT) SC SCH ×4 (05:59→20:51)
[2018-02-03] MEDS: PANTOPRAZOLE 20 MG TABLET (PROTONIX) PO SCH (07:02)
[2018-02-03] MEDS: RT-ALBUTEROL/IPRATROPIUM 3 ML (DUONEB) VIAL INH SCH ×2 (07:40→19:49)
[2018-02-03] MEDS: MONTELUKAST 10 MG (SINGULAIR) TAB PO SCH (08:27)
[2018-02-03] MEDS: SOTALOL 80 MG (BETAPACE) TAB PO SCH (08:27)
[2018-02-03] MEDS: LOSARTAN 50 MG (COZAAR) TAB PO SCH (08:28)
[2018-02-03] MEDS: LORazepam 0.5 MG (ATIVAN) TABLET PO SCH (08:28)
[2018-02-03] MEDS: GABAPENTIN 300 MG (NEURONTIN) CAP PO SCH ×2 (08:28→20:54)
[2018-02-03] MEDS: RIVAROXABAN 15 MG TABLET (XARELTO) PO SCH (17:20)
[2018-02-03 18:00] VITALS: BP 101/64
[2018-02-03] MEDS: MIRTAZAPINE 15 MG (REMERON) TAB PO SCH (20:54)
[2018-02-04] MEDS: PANTOPRAZOLE 20 MG TABLET (PROTONIX) PO SCH (06:36)
[2018-02-04] MEDS: inSUlin ASPART (NovoLOG) 1 UNIT/0.01 ML (CHARGE PER UNIT) SC SCH ×4 (06:39→20:43)
[2018-02-04 06:46] VITALS: BP 148/86
[2018-02-04] MEDS: RT-ALBUTEROL/IPRATROPIUM 3 ML (DUONEB) VIAL INH SCH ×2 (07:58→19:44)
[2018-02-04] MEDS: SOTALOL 80 MG (BETAPACE) TAB PO SCH (09:15)
[2018-02-04] MEDS: GABAPENTIN 300 MG (NEURONTIN) CAP PO SCH ×2 (09:15→20:43)
[2018-02-04] MEDS: LORazepam 0.5 MG (ATIVAN) TABLET PO SCH (09:15)
[2018-02-04] MEDS: MONTELUKAST 10 MG (SINGULAIR) TAB PO SCH (09:15)
[2018-02-04] MEDS: LOSARTAN 50 MG (COZAAR) TAB PO SCH (09:15)
--- NOTE | 2018-02-04 09:38 | Speech Therapy Daily Note ---
Speech Daily Progress Note Subjective Date Seen by Provider: Feb 04, 2018 Time Seen by Provider: 00:30 Patient was up in her recliner resting when I entered the room. Objective Patient completed memory for matching word exercise with minimal cuing at 80%. Treatment Plan Continue Plan of Care Communication Comprehension: 3 Expression: 3 Social Cognition Social Interaction: 4 Problem Solvin Memory: 2 Speech Short Term Goals Short Term Goals Short Term Goals 1) Patient will remember objects and their function with 90% accuracy, independently. 2) Patient will complete word finding exercises with 90% accuracy, independently. Speech Cooler Service Supervisor Goals Care Home Goals Patient will improve memory and comprehension for increased safety awareness and independence. Comprehension: 6 Expression: 7 Social Interaction: 7 Problem Solvin Memory: 7 Speech-Plan Patient/Family Goals Patient/Family Goals: Patient plans to return to her home alone with family close by for support. Treatment Plan Speech Therapy Treatment Plan: Continue Plan of Care Patient wants to be released as soon as possible so that she can get her Pamela tasks done. Treatment Duration: Feb 08, 2018 Frequency: 5 times per week Estimated Hrs Per Day: .5 hour per day Rehab Potential: Good Barriers to Learning: Patient tires easily. Safety Risks/Education Teaching Recipient: Patient Teaching Methods: Discussion Response to Teaching: Verbalize Understanding Education Topics Provided: Safety within her room. Time Speech Therapy Time In: 08:30 Speech Therapy Time Out: 09:00 Total Billed Time: 30 Billed Treatment Time 1[address] Feb 04, 2018 09:38
--- NOTE | 2018-02-04 12:18 | Physical Therapy Daily Note ---
PT Daily Note-Current Subjective Pt states she is feeling pretty good today and ready and willing for physical therapy Pain Numeric Pain Scale: 0-No Pain Appearance Pt sitting up in recliner awake and alert with 3LO2/NC at beginning of PT session. Pt sitting in recliner with LE's elevated, call light and phone within reach, 3LO2/NC bedside table in front and on the phone ordering lunch at end of PT session. Transfers Therapy Code Descriptions/Definitions Functional [place] Measure: 0=Not Assessed/NA 4=Minimal Assistance 1=Total Assistance 5=Supervision or Setup 2=Maximal Assistance 6=Modified [place] 3=Moderate Assistance 7=Complete [place] Therapy Quality Codes: 6 Independent with activity with or without an assistive device 5 Patient requires set up or clean up by helper. Patient completes activity by themselves 4 Supervision or touching assist (CGA). [place] provide cues , steadying assist 3 The helper provides less than half the effort to complete the activity 2 The helper provides more than half the effort to complete the activity 1 Dependent. The helper does all the effort to complete an activity 7 Patient refused to complete or attempt activity 9 The patient did not perform the activity before the current illness or injury 88 Not attempted due to Medical conditions or safety concerns Transfers (B, C, W/C) (FIM): 5 Sit to/from Stand: 5 Sit to Stand (QC): 5 effort required with transitions but requiring no physical assist, occasional verb inst for safety and hand and walker placement Weight Bearing Right Lower Extremity: Right Weight Bearing/Tolerated Left Lower Extremity: Left Weight Bearing/Tolerated Gait Training Does the Patient Walk?: Yes Gait (FIM): 5 Distance (FIM): 3=150 ft Distance: 350,120 Walk 150 ft (QC): 5 Gait Level of Assist: 5 Gait Persons Needed: 1 Gait Assistive Device: FWW Stair Training Stair Training: Handrails/: 2 handrails Stairs (FIM): 5 #of Steps: 12 12 Steps (QC): 4 Stairs: Pattern: Step to Level of Assist: 5 slow step to gait patter requiring 2 handrails Exercises Seated Therapy Exercises: Ankle pumps, Sit to stand, Long arc quads Seated Reps: 20 Standing: Hip Abduction, Heel/toe raises, 3 way Ex=Flex, Abd, Ext, Marching, Mini squats, Retro gait, Sit to Stand, Side steps, Step-ups, Unilateral stance, Weight shifts Standing Reps: 20 Treatments sitting ex, standing balance ex, transfer gait and stair training Assessment Current Status: Good Progress PT Short Term Goals Short Term Goals Time Frame: Feb 07, 2018 Transfers (B,C,W/C) (FIM): 5 Gait (FIM): 5 Gait Distance Comment: 150' Gait Level of Assist: 5 Gait Assistive Device: FWW PT Fci Goals Jacquard Card Lacer Goals PT Jacquard Card Lacer Goals Time Frame: Feb 21, 2018 Transfers (B,C,W/C) (FIM): 6 Sit to Lying (QC): 6 Lying-Sitting on Side/Bed(QC): 6 Sit to Stand (QC): 6 Rollin Roll Left to Right (QC): 6 Chair/Lin-gq-Ycmml Xfer(QC): 6 Car Transfer (QC): 6 Gait (FIM): 6 Distance: 200' Walk 10 feet (QC): 6 Walk 10ft-Uneven Surface(QC): 6 Walk 50ft with 2 Turns (QC): 6 Walk 150 ft (QC): 6 Gait Level of Assist: 6 Gait Assistive Device: FWW Stairs (FIM): 2 # of Steps: 4 1 Step (curb) (QC): 4 4 Steps (QC): 4 Stairs Level Of Assist: 5 PT Plan Problem List Problem List: Activity Tolerance, Functional Strength, Safety, Balance, Gait, Transfer Treatment/Plan Treatment Plan: Continue Plan of Care Treatment Plan: Bed Mobility, Education, Functional Activity Cassandra, Functional Strength, Group Therapy, Gait, Safety, Therapeutic Exercise, Transfers Treatment Duration: Feb 21, 2018 Frequency: At least 5 of 7 days/Wk (IRF) Estimated Hrs Per Day: 1.5 hours per day Patient and/or Family Agrees t: Yes Safety Risks/Education Patient Education: Gait Training, Transfer Techniques, Safety Issues Teaching Recipient: Patient Teaching Methods: Discussion Response to Teaching: Verbalize Understanding, Return Demonstration Time/GCodes Time In: 1100 Time Out: 1200 Total Billed Treatment Time: 60 Total Billed Treatment 1 visit FA x30 GT x30 AAMIR BAILEY PTA Feb 04, 2018 12:18
--- NOTE | 2018-02-04 14:02 | Occupational Ther Daily Note ---
OT Current Status-Daily Note Subjective No pain reported. Appearance Pt. is up in chair. Agrees to work with OT. Mental Status/Objective Patient Orientation: Person, Place Therapy Code Descriptions/Definitions Functional [place] Measure: 0=Not Assessed/NA 4=Minimal Assistance 1=Total Assistance 5=Supervision or Setup 2=Maximal Assistance 6=Modified [place] 3=Moderate Assistance 7=Complete [place] Attachments: Oxygen ADL-Treatment Therapy Code Descriptions/Definitions Functional [place] Measure: 0=Not Assessed/NA 4=Minimal Assistance 1=Total Assistance 5=Supervision or Setup 2=Maximal Assistance 6=Modified [place] 3=Moderate Assistance 7=Complete [place] Therapy Quality Codes: 6 Independent with activity with or without an assistive device 5 Patient requires set up or clean up by helper. Patient completes activity by themselves 4 Supervision or touching assist (CGA). [place] provide cues , steadying assist 3 The helper provides less than half the effort to complete the activity 2 The helper provides more than half the effort to complete the activity 1 Dependent. The helper does all the effort to complete an activity 7 Patient refused to complete or attempt activity 9 The patient did not perform the activity before the current illness or injury 88 Not attempted due to Medical conditions or safety concerns Grooming (FIM): 4 (Pt. is able to brush teeth standing with SBA at sink, but requires min assist to brush hair in back of head. This is due to inability to reach that far.) Oral Hygiene (QC): 4 Bathing (FIM): 5 (SBA to shower all parts. Pt. does require cues at times to continue sitting for safety.) Shower/Bathe Self (QC): 4 Upper Body (FIM): 3 (Pt. requires mod assist to doff sweatshirt, and don sweatshirt. States that this is not new, and is due to poor ROM in shoulders.) Upper Body Dressing (QC): 3 Lower Body Dressing (FIM): 4 (Pt. is able to don shoes, socks, brief, and jeans. Does require assist to snap jeans.) Lower Body Dressing (QC): 4 On/Off Footwear (QC): 5 (SBA.) Toileting (FIM): 5 (SBA to toilet self.) Toileting Hygiene (QC): 4 Transfers (B, C, W/C) (FIM): 5 (SBA with all transfers.) Toilet/Commode Transfer (FIM): 5 Toilet Transfer (QC): 4 Shower Transfer(FIM): 5 Other Treatment Pt. reports that she isn't sure why she is on oxygen. Pt. is on 3 L 02. OT takes sats before ambulating to therapy gym. Sats are 98%. OT removes oxygen, and pt. completes two rounds on armbike at min resistance, each five minutes. 02 sats are 92% at that time. Pt. ambulates back to room with SBA without oxygen, and sats are 89%. Oxygen is re-applied and comes back up quickly to 98% . All needs are met and pt. is in chair. Education OT Patient Education: Correct positioning, Exercise program, Modified ADL techniques, Progress toward Goal/Update tx plan, Purpose of tx/functional activities, Reviewed precautions, Rehab process, Transfer techniques Teaching Recipient: Patient Teaching Methods: Demonstration, Discussion Response to Teaching: Verbalize Understanding, Return Demonstration OT Short Term Goals Short Term Goals Time Frame: Feb 07, 2018 Eating(FIM): 5 Grooming(FIM): 5 Bathing(FIM): 4 Upper Body Dressing(FIM): 5 Lower Body Dressing(FIM): 5 Toileting(FIM): 5 Transfers (B,C,W/C) (FIM): 5 Toilet/Commode Transfer(FIM): 5 Shower Transfer(FIM): 4 Additional Short Term Goals: 1-Demonstrate ADL Tasks, 2-Verbalize Understanding , 3-ImproveStrength/Cassandra 1=Demonstrate adherence to instructed precautions during ADL tasks. 2=Patient will verbalize/demonstrate understanding of assistive devices/ modifications for ADL. 3=Patient will improve strength/tolerance for activity to enable patient to perform ADL's. OT Per Diem Nurse Goals Per Diem Nurse Goals Time Frame: Feb 14, 2018 Eating (FIM): 6 Eating (QC): 6 Groomin Oral Hygiene (QC): 6 Bathing(FIM): 5 Shower/Bathe Self (QC): 4 Upper Body Dressing(FIM): 6 Upper Body Dressing (QC): 6 Lower Body Dressing(FIM): 6 Lower Body Dressing (QC): 6 On/Off Footwear (QC): 6 Toileting(FIM): 6 Toileting Hygiene (QC): 6 Transfers (B,C,W/C) (FIM): 6 Toilet/Commode Transfer(FIM): 6 Toilet/Commode Transfer (QC): 6 Shower Transfer(FIM): 5 Comprehension(FIM): 6 Expression (FIM): 7 Social Interaction(FIM): 7 Problem Solving(FIM): 7 Memory(FIM): 7 Additional Goals: 1-Demonstrate ADL Tasks, 2-Verbalize Understanding, 3- ImproveStrength/Cassandra 1=Demonstrate adherence to instructed precautions during ADL tasks. 2=Patient will verbalize/demonstrate understanding of assistive devices/ modifications for ADL. 3=Patient will improve strength/tolerance for activity to enable patient to perform ADL's. OT Education/Plan Problem List/Assessment Assessment: Decreased Activ Tolerance, Decreased UE Strength, Impaired I ADL's , Impaired Self-Care Skills Discharge Recommendations Plan/Recommendations: Continue POC Therapy D/C Recommendations: Home w/ Family Support, Occupational Therapy Home Care Treatment Plan/Plan of Care Treatment,Training & Education: Yes Patient would benefit from OT for education, treatment and training to promote independence in ADL's, mobility, safety and/or upper extremity function for ADL' s. Plan of Care: ADL Retraining, Functional Mobility, Group Exercise/Act as Ind, UE Funct Exercise/Act Treatment Duration: Feb 14, 2018 Frequency: 5 times per week Estimated Hrs Per Day: 1.5 hours per day Agreement: Yes Rehab Potential: Good Time/GCodes Start Time: 09:45 Stop Time: 10:45 Total Time Billed (hr/min): 60 Billed Treatment Time 1, ADL x 45minutes, Ex x 15minutes ZELDA MEIER OT Feb 04, 2018 14:02
--- NOTE | 2018-02-04 14:46 | Therapy Group Daily Note ---
Therapy Daily Group Note Patient Education Topic Other List Below (see below) Other/Notes Pt. participated in group PT OT ST session this date. Pt. ambulated to from [facility]. Pt. was pleasant and participated well, was social and interacted as lead. Pts. were educated in proper handwashing, disease prevention and the benefits of exercise . Pts all participated in foam dice roll to engage in exercise which was pt. lead by reading from written illustrated cards. Pt. also participated in memory game to recall 5 words from Sunday group. Pt. with CGA to chair after Rx. [place] at hand Start Time: 13:00 Stop Time: 14:05 Total Billed Treatment Time: 65 Total Billed Treatment 1,GRP EKATERINA GARCIA RADIO SURVEY WORKER Feb 04, 2018 14:46
--- NOTE | 2018-02-04 15:16 | Oncology Progress Note ---
Subjective Date Seen by a Provider: Feb 04, 2018 Time Seen by a Provider: 15:13 Subjective/Events-last exam On physical therapy. Slowly improving Need less Oxygen now Data Review Labs Laboratory Tests 02/01/18 21:03: Glucometer 209H 02/01/18 21:49: Glucometer 194H 02/02/18 06:12: 02/02/18 10:04: Glucometer 176H 02/02/18 15:03: 02/02/18 19:30: 02/03/18 05:29: 02/03/18 09:53: Glucometer 160H 02/03/18 16:35: Glucometer 141H 02/03/18 20:42: Glucometer 152H 02/04/18 06:37: Glucometer 116H 02/04/18 09:24: Glucometer 181H 02/04/18 15:01: Glucometer 141H Physical Exam Vital Signs Vital Signs - First Documented 01/31/18 02/02/18 11:15 10:39 Temp 98.0 Pulse 80 Resp 22 B/P (MAP) 103/69 (80) Pulse Ox 95 O2 Delivery Nasal Cannula O2 Flow Rate 5.00 FiO2 40 Capillary Refill : Less Than 3 Seconds Height, Weight, BMI Height: 5'3.00" Weight: 168lbs. 6.4oz. 76.525149mq; 29.2 BMI Method:Stated General Appearance: No Apparent Distress HEENT: PERRL/EOMI Neck: Non Tender, Supple Respiratory: No Accessory Muscle Use, No Respiratory Distress Cardiovascular: Regular Rate, Rhythm Gastrointestinal: Non Tender, Soft Extremity: Non Tender, No Calf Tenderness, No Pedal Edema Neurologic/Psychiatric: Alert, Oriented x3 Impression & Plan Impression & Plan IMP: 1. Hypoxia, persistent cough and pulmonary congestions/edema. Slowly improving. 2. Multiple myeloma disease stable on current chemo Bladimir+Dex. Last dose 2017 3. Leukopenia 4. h/o CAD, Pace Maker and CHF 5. Acute renal failure, improving Cr 1.7 now down to 1.1 6. On rehab Plan: 1. Hold off chemo for a month until she fully recovers from this event. 2. Possible home in 2-3 days. See me in cancer 2 weeks after discharge 3. physical therapy 4. Dr Boogie to decide discharge plan. Clinical Quality Measures DVT/VTE Risk/Contraindication: Risk Factor Score Per Nursin RFS Level Per Nursing on Admit: 2=Moderate PAN GARRISON MD Feb 04, 2018 15:16
[2018-02-04 15:37] LABS: BASOPHILS % (AUTO) 0 % (0-10); EOSINOPHILS # (AUTO) 0.3 10^3/uL (0.0-0.3); EOSINOPHILS % (AUTO) 5 % (0-10); HEMATOCRIT 37 % (35-52); HEMOGLOBIN 11.2 G/DL (11.5-16.0); LYMPHOCYTES # (AUTO) 1.6 X 10^3 (1.0-4.0); LYMPHOCYTES % (AUTO) 23 % (12-44); MEAN CORPUSCULAR HEMOGLOBIN 31 PG (25-34); MEAN CORPUSCULAR HGB CONC 30 G/DL (32-36); MEAN CORPUSCULAR VOLUME 102 FL (80-99); MEAN PLATELET VOLUME 9.9 FL (7.4-10.4); MONOCYTES # (AUTO) 0.7 X 10^3 (0.0-1.0); MONOCYTES % (AUTO) 10 % (0-12); NEUTROPHILS # (AUTO) 4.3 X 10^3 (1.8-7.8); NEUTROPHILS % (AUTO) 62 % (42-75); PLATELET COUNT 285 10^3/uL (130-400); RED BLOOD COUNT 3.62 10^6/uL (4.35-5.85)
[2018-02-04 15:53] VITALS: BP 94/65
[2018-02-04] MEDS: RIVAROXABAN 15 MG TABLET (XARELTO) PO SCH (17:09)
--- NOTE | 2018-02-04 18:43 | PM & R (SOAP) Progress Note ---
Subjective This was a face to face visit with the patient. Date Seen by Provider: Feb 04, 2018 Time Seen by Provider: 18:20 Subjective/Events-last exam Patient was seen in her room this evening Patient SBA for TRansfers Appreciate DR Dee note Review of Systems Pulmonary: Dyspnea Objective Physician Exam Last Set of Vital Signs Vital Signs Date Time Temp Pulse Resp B/P (MAP) Pulse Ox O2 Delivery O2 Flow Rate FiO2 02/04/18 15:53 97.4 58 14 94/65 (75) 93 Nasal Cannula 3.00 02/02/18 10:39 40 Capillary Refill : Less Than 3 Seconds I&O Intake and Output 02/04/18 00:00 Intake Total 900 ml Balance 900 ml Intake Oral 900 ml # Voids 5 # Urine Diapers 1 General: Alert, Oriented X3, Cooperative, No Acute Distress HEENT: Atraumatic, PERRLA, EOMI, Mucous Memb Moist/[place], Other (02 by N/C in Place) Neck: Supple, No JVD Lungs: Other (decreased breath sounds at bases) Heart: Regular Rate Abdomen: Normal Bowel Sounds, Soft, No Tenderness Extremities: Other (trace edema) Skin: No Rashes, No Breakdown Neuro: Other (generalized weakness) Results Lab Data Laboratory Tests 02/01/18 21:03: Glucometer 209H 02/01/18 21:49: Glucometer 194H 02/02/18 06:12: Glucometer 110 02/02/18 10:04: Glucometer 176H 02/02/18 15:03: Glucometer 83 02/02/18 19:30: Glucometer 100 02/03/18 05:29: Glucometer 95 02/03/18 09:53: Glucometer 160H 02/03/18 16:35: Glucometer 141H 02/03/18 20:42: Glucometer 152H 02/04/18 06:37: Glucometer 116H 02/04/18 09:24: Glucometer 181H 02/04/18 15:01: Glucometer 141H 02/04/18 15:30: White Blood Count 7.0, Red Blood Count 3.62L, Hemoglobin 11.2L, Hematocrit 37, Mean Corpuscular Volume 102H, Mean Corpuscular Hemoglobin 31, Mean Corpuscular Hemoglobin Concent 30L, Red Cell Distribution Width 16.0H, Platelet Count 285, Mean Platelet Volume 9.9, Neutrophils (%) (Auto) 62, Lymphocytes (%) (Auto) 23, Monocytes (%) (Auto) 10, Eosinophils (%) (Auto) 5, Basophils (%) (Auto) 0, Neutrophils # (Auto) 4.3, Lymphocytes # (Auto) 1.6, Monocytes # (Auto) 0.7, Eosinophils # (Auto) 0.3, Basophils # (Auto) 0.0 Assessment/Plan Assessment and Plan General debil secondary to bout of bronchitis 02 dependence HTN OA s/p bilateral TKRS Multiple myeloma followed by [facility] Hypercholesteremia S/P pacemaker Plan Continue PT/OT Team Conference 02-06-18 Co-Morbidities that are continuing to impact the rehab process: (include details ) TAE MENDOZA MD Feb 04, 2018 18:43
[2018-02-04] MEDS: MIRTAZAPINE 15 MG (REMERON) TAB PO SCH (20:43)
[2018-02-05] MEDS: PANTOPRAZOLE 20 MG TABLET (PROTONIX) PO SCH (05:44)
[2018-02-05] MEDS: inSUlin ASPART (NovoLOG) 1 UNIT/0.01 ML (CHARGE PER UNIT) SC SCH ×4 (05:52→20:18)
[2018-02-05 06:02] VITALS: BP 163/89
[2018-02-05 06:54] VITALS: BP 163/89
--- NOTE | 2018-02-05 07:50 | PM & R (SOAP) Progress Note ---
Subjective This was a face to face visit with the patient. Date Seen by Provider: Feb 05, 2018 Time Seen by Provider: 07:35 Subjective/Events-last exam Patient was seen in her room this AM Endurance improving .Patient SBA for transfers Review of Systems Pulmonary: Dyspnea Objective Physician Exam Last Set of Vital Signs Vital Signs Date Time Temp Pulse Resp B/P (MAP) Pulse Ox O2 Delivery O2 Flow Rate FiO2 02/05/18 06:54 73 93 02/05/18 06:54 Nasal Cannula 3.00 02/05/18 06:02 97.4 20 163/89 (113) 02/02/18 10:39 40 Capillary Refill : Less Than 3 Seconds I&O Intake and Output 02/05/18 00:00 Intake Total 925 ml Balance 925 ml Intake Oral 925 ml # Voids 5 # Bowel Movements 1 General: Alert, Oriented X3, Cooperative, No Acute Distress HEENT: Atraumatic, PERRLA, EOMI, Mucous Memb Moist/[place], Other (02 by N/C in Place) Neck: Supple, No JVD Lungs: Other (decreased breath sounds at bases) Heart: Regular Rate Abdomen: Normal Bowel Sounds, Soft, No Tenderness Extremities: Other (trace edema) Skin: No Rashes, No Breakdown Neuro: Other (generalized weakness) Results Lab Data Laboratory Tests 02/02/18 10:04: Glucometer 176H 02/02/18 15:03: Glucometer 83 02/02/18 19:30: Glucometer 100 02/03/18 05:29: Glucometer 95 02/03/18 09:53: Glucometer 160H 02/03/18 16:35: Glucometer 141H 02/03/18 20:42: Glucometer 152H 02/04/18 06:37: Glucometer 116H 02/04/18 09:24: Glucometer 181H 02/04/18 15:01: Glucometer 141H 02/04/18 15:30: White Blood Count 7.0, Red Blood Count 3.62L, Hemoglobin 11.2L, Hematocrit 37, Mean Corpuscular Volume 102H, Mean Corpuscular Hemoglobin 31, Mean Corpuscular Hemoglobin Concent 30L, Red Cell Distribution Width 16.0H, Platelet Count 285, Mean Platelet Volume 9.9, Neutrophils (%) (Auto) 62, Lymphocytes (%) (Auto) 23, Monocytes (%) (Auto) 10, Eosinophils (%) (Auto) 5, Basophils (%) (Auto) 0, Neutrophils # (Auto) 4.3, Lymphocytes # (Auto) 1.6, Monocytes # (Auto) 0.7, Eosinophils # (Auto) 0.3, Basophils # (Auto) 0.0 02/04/18 20:42: Glucometer 141H 02/05/18 05:49: Glucometer 95 Assessment/Plan Assessment and Plan General debil secondary to bout of bronchitis 02 dependence HTN OA s/p bilateral TKRS Multiple myeloma followed by [facility] Hypercholesteremia S/P pacemaker Plan Continue PT/OT Team Conference tomorrow Will discuss discharge goals with staff Co-Morbidities that are continuing to impact the rehab process: (include details ) TAE MENDOZA MD Feb 05, 2018 07:50
--- NOTE | 2018-02-05 09:07 | Speech Therapy Daily Note ---
Speech Daily Progress Note Subjective Date Seen by Provider: Feb 05, 2018 Time Seen by Provider: 00:30 Patient was pleasant and cooperative. Objective Patient completed memory task related to definition matching with 90% accuracy. Assessment Assessment Current Status: Good Progress Treatment Plan Continue Plan of Care Communication Comprehension: 3 Expression: 3 Social Cognition Social Interaction: 4 Problem Solvin Memory: 2 Speech Short Term Goals Short Term Goals Short Term Goals 1) Patient will remember objects and their function with 90% accuracy, independently. 2) Patient will complete word finding exercises with 90% accuracy, independently. Speech Fci Goals Fci Goals Patient will improve memory and comprehension for increased safety awareness and independence. Comprehension: 6 Expression: 7 Social Interaction: 7 Problem Solvin Memory: 7 Speech-Plan Patient/Family Goals Patient/Family Goals: Patient plans to return home alone with family support post rehab. Treatment Plan Speech Therapy Treatment Plan: Continue Plan of Care Patient is anxious to go home to get her [place] treats made. Treatment Duration: Feb 08, 2018 Frequency: 5 times per week Estimated Hrs Per Day: .5 hour per day Rehab Potential: Good Barriers to Learning: Patient's memory. Pt/Family Agrees to Plan: Yes Safety Risks/Education Teaching Recipient: Patient Teaching Methods: Discussion Response to Teaching: Verbalize Understanding Education Topics Provided: Safety. Time Speech Therapy Time In: 08:30 Speech Therapy Time Out: 09:00 Total Billed Time: 30 Billed Treatment Time 1W[address] Feb 05, 2018 09:07
[2018-02-05] MEDS: LORazepam 0.5 MG (ATIVAN) TABLET PO SCH (09:08)
[2018-02-05] MEDS: MONTELUKAST 10 MG (SINGULAIR) TAB PO SCH (09:08)
[2018-02-05] MEDS: LOSARTAN 50 MG (COZAAR) TAB PO SCH (09:08)
[2018-02-05] MEDS: GABAPENTIN 300 MG (NEURONTIN) CAP PO SCH ×2 (09:08→20:18)
[2018-02-05] MEDS: SOTALOL 80 MG (BETAPACE) TAB PO SCH (09:08)
--- NOTE | 2018-02-05 12:22 | Physical Therapy Daily Note ---
PT Daily Note-Current Subjective Pt sitting in Therapy Gym after finishing with OT. Pt agrees to PT. Pt wants to discharge VALERIY. CHARGE HISTOTECHNOLOGIST advised will know more about discharge after tomorrow's Weekly ARU Mtg. Mental Status Patient Orientation: Person, Place, Situation Attachments: Oxygen (3L) Transfers Therapy Code Descriptions/Definitions Functional [place] Measure: 0=Not Assessed/NA 4=Minimal Assistance 1=Total Assistance 5=Supervision or Setup 2=Maximal Assistance 6=Modified [place] 3=Moderate Assistance 7=Complete [place] Therapy Quality Codes: 6 Independent with activity with or without an assistive device 5 Patient requires set up or clean up by helper. Patient completes activity by themselves 4 Supervision or touching assist (CGA). [place] provide cues , steadying assist 3 The helper provides less than half the effort to complete the activity 2 The helper provides more than half the effort to complete the activity 1 Dependent. The helper does all the effort to complete an activity 7 Patient refused to complete or attempt activity 9 The patient did not perform the activity before the current illness or injury 88 Not attempted due to Medical conditions or safety concerns Scootin Sit to/from Stand: 5 Sit to Stand (QC): 5 Weight Bearing Right Lower Extremity: Right Weight Bearing/Tolerated Left Lower Extremity: Left Weight Bearing/Tolerated Gait Training Does the Patient Walk?: Yes Distance (FIM): 3=150 ft Distance: 180' Walk 10 feet (QC): 5 Walk 50 ft with 2 Turns(QC): 5 Walk 150 ft (QC): 5 Gait Level of Assist: 5 Gait Persons Needed: 1 Gait Assistive Device: Walker 4 Wheeled Wheelchair Training Does the Pt Use a Wheelchair?: No Stair Training Stair Training: Handrails/: 2 handrails #of Steps: 8 1 Step (curb) (QC): 5 4 Steps (QC): 5 Stairs: Pattern: Step to Level of Assist: 5 Exercises Seated Therapy Exercises: Ankle pumps, Long arc quads, Hip flexion, Kicking activity Seated Reps: 20 Standing: Hamstring curls, Marching Standing Reps: 20 NuStep Minutes: 15 NuStep Workload: 4 Treatments Pt uses NuStep for 15m at WL 4. Pt completes Seated Ex and Standing EX at 4WW. Pt ambulates in hallway before returning to room to rest in recliner. Pt has all needs met. Assessment Current Status: Good Progress Pt continues to want to discharge tomorrow, CHARGE HISTOTECHNOLOGIST explains ARU Weekly mtg tomorrow & will know more then. Pt is able to complete PT today w/o O2 but is monitored throughout tx (stays between 91-95%). PT Short Term Goals Short Term Goals Time Frame: Feb 07, 2018 Transfers (B,C,W/C) (FIM): 5 Gait (FIM): 5 Gait Distance Comment: 150' Gait Level of Assist: 5 Gait Assistive Device: FWW PT Long-Term Goals Long-Term Goals PT Bottling Machine Operator Goals Time Frame: Feb 21, 2018 Transfers (B,C,W/C) (FIM): 6 Sit to Lying (QC): 6 Lying-Sitting on Side/Bed(QC): 6 Sit to Stand (QC): 6 Rollin Roll Left to Right (QC): 6 Chair/Bhf-pu-Qtnsd Xfer(QC): 6 Car Transfer (QC): 6 Gait (FIM): 6 Distance: 200' Walk 10 feet (QC): 6 Walk 10ft-Uneven Surface(QC): 6 Walk 50ft with 2 Turns (QC): 6 Walk 150 ft (QC): 6 Gait Level of Assist: 6 Gait Assistive Device: FWW Stairs (FIM): 2 # of Steps: 4 1 Step (curb) (QC): 4 4 Steps (QC): 4 Stairs Level Of Assist: 5 PT Plan Problem List Problem List: Activity Tolerance, Functional Strength, Safety Treatment/Plan Treatment Plan: Continue Plan of Care Treatment Plan: Bed Mobility, Education, Functional Activity Cassandra, Functional Strength, Group Therapy, Gait, Safety, Therapeutic Exercise, Transfers Treatment Duration: Feb 21, 2018 Frequency: At least 5 of 7 days/Wk (IRF) Estimated Hrs Per Day: 1.5 hours per day Patient and/or Family Agrees t: Yes Safety Risks/Education Patient Education: Gait Training, Transfer Techniques, Correct Positioning, Safety Issues Teaching Recipient: Patient Teaching Methods: Discussion Response to Teaching: Verbalize Understanding Time/GCodes Time In: 1000 Time Out: 1045 Total Billed Treatment Time: 45 Total Billed Treatment 1, GT (15m), EX (20m) & FA (10m) G Codes Necessary: No BEKAH GALEAS PTA Feb 05, 2018 12:22
--- NOTE | 2018-02-05 15:05 | Physical Therapy Daily Note ---
PT Daily Note-Current Subjective Pt sitting in recliner eating lunch upon arrival. Pt agrees to PT. Mental Status Patient Orientation: Person, Place, Situation Transfers Therapy Code Descriptions/Definitions Functional [place] Measure: 0=Not Assessed/NA 4=Minimal Assistance 1=Total Assistance 5=Supervision or Setup 2=Maximal Assistance 6=Modified [place] 3=Moderate Assistance 7=Complete [place] Therapy Quality Codes: 6 Independent with activity with or without an assistive device 5 Patient requires set up or clean up by helper. Patient completes activity by themselves 4 Supervision or touching assist (CGA). [place] provide cues , steadying assist 3 The helper provides less than half the effort to complete the activity 2 The helper provides more than half the effort to complete the activity 1 Dependent. The helper does all the effort to complete an activity 7 Patient refused to complete or attempt activity 9 The patient did not perform the activity before the current illness or injury 88 Not attempted due to Medical conditions or safety concerns Scootin Sit to/from Stand: 5 Sit to Stand (QC): 5 Weight Bearing Right Lower Extremity: Right Weight Bearing/Tolerated Left Lower Extremity: Left Weight Bearing/Tolerated Gait Training Does the Patient Walk?: Yes Distance (FIM): 3=150 ft Distance: 150' Walk 10 feet (QC): 5 Walk 50 ft with 2 Turns(QC): 5 Walk 150 ft (QC): 5 Gait Level of Assist: 5 Gait Persons Needed: 1 Gait Assistive Device: Walker 4 Wheeled Wheelchair Training Does the Pt Use a Wheelchair?: No Exercises Seated Therapy Exercises: Ankle pumps, Long arc quads, Hip flexion, Kicking activity, Hip abd/add Seated Reps: 15 Treatments Pt finishes lunch then ambulates in hallway to Therapy Gym. Pt completes Seated Ex before returning to room to rest in recliner. Pt has all needs met. Assessment Current Status: Good Progress Pt sometimes forgets safety especially in taking 4WW when transferring short distance. PT Short Term Goals Short Term Goals Time Frame: Feb 07, 2018 Transfers (B,C,W/C) (FIM): 5 Gait (FIM): 5 Gait Distance Comment: 150' Gait Level of Assist: 5 Gait Assistive Device: FWW PT Business Applications Specialist Goals Business Applications Specialist Goals PT Business Applications Specialist Goals Time Frame: Feb 21, 2018 Transfers (B,C,W/C) (FIM): 6 Sit to Lying (QC): 6 Lying-Sitting on Side/Bed(QC): 6 Sit to Stand (QC): 6 Rollin Roll Left to Right (QC): 6 Chair/Wbt-br-Iodcj Xfer(QC): 6 Car Transfer (QC): 6 Gait (FIM): 6 Distance: 200' Walk 10 feet (QC): 6 Walk 10ft-Uneven Surface(QC): 6 Walk 50ft with 2 Turns (QC): 6 Walk 150 ft (QC): 6 Gait Level of Assist: 6 Gait Assistive Device: FWW Stairs (FIM): 2 # of Steps: 4 1 Step (curb) (QC): 4 4 Steps (QC): 4 Stairs Level Of Assist: 5 PT Plan Problem List Problem List: Activity Tolerance, Functional Strength, Safety Treatment/Plan Treatment Plan: Continue Plan of Care Treatment Plan: Bed Mobility, Education, Functional Activity Cassandra, Functional Strength, Group Therapy, Gait, Safety, Therapeutic Exercise, Transfers Treatment Duration: Feb 21, 2018 Frequency: At least 5 of 7 days/Wk (IRF) Estimated Hrs Per Day: 1.5 hours per day Patient and/or Family Agrees t: Yes Safety Risks/Education Patient Education: Gait Training, Transfer Techniques, Correct Positioning, Safety Issues Teaching Recipient: Patient Teaching Methods: Discussion Response to Teaching: Verbalize Understanding Time/GCodes Time In: 1300 Time Out: 1330 Total Billed Treatment Time: 30 Total Billed Treatment 1, GT (15m) & EX (15m) G Codes Necessary: BEKAH Wallace ELEMENTARY SCHOOL SOCIAL WORKER Feb 05, 2018 15:04
--- NOTE | 2018-02-05 15:44 | Occupational Ther Daily Note ---
OT Current Status-Daily Note Subjective Pt. reports no pain. Appearance Pt. is up in bathroom changing her brief when OT comes into room. Pt. is encouraged to have assistance for safety. Mental Status/Objective Patient Orientation: Person, Place Therapy Code Descriptions/Definitions Functional [place] Measure: 0=Not Assessed/NA 4=Minimal Assistance 1=Total Assistance 5=Supervision or Setup 2=Maximal Assistance 6=Modified [place] 3=Moderate Assistance 7=Complete [place] Attachments: Oxygen ADL-Treatment Therapy Code Descriptions/Definitions Functional [place] Measure: 0=Not Assessed/NA 4=Minimal Assistance 1=Total Assistance 5=Supervision or Setup 2=Maximal Assistance 6=Modified [place] 3=Moderate Assistance 7=Complete [place] Therapy Quality Codes: 6 Independent with activity with or without an assistive device 5 Patient requires set up or clean up by helper. Patient completes activity by themselves 4 Supervision or touching assist (CGA). [place] provide cues , steadying assist 3 The helper provides less than half the effort to complete the activity 2 The helper provides more than half the effort to complete the activity 1 Dependent. The helper does all the effort to complete an activity 7 Patient refused to complete or attempt activity 9 The patient did not perform the activity before the current illness or injury 88 Not attempted due to Medical conditions or safety concerns Grooming (FIM): 4 (Pt. is able to brush most of her hair, but requires assist to brush the back. States that she has a long handled brush at home.) Upper Body (FIM): 4 (Pt. is able to doff her shirt, and requires min assist to don clean shirt.) Upper Body Dressing (QC): 4 Lower Body Dressing (FIM): 4 (Pt. is able to don brief but requires min assist to pull pants up over back. pt. is able to don socks and shoes.) Lower Body Dressing (QC): 4 On/Off Footwear (QC): 5 Toileting (FIM): 6 Toileting Hygiene (QC): 6 Transfers (B, C, W/C) (FIM): 5 (SBA with walker due to oxygen tubing.) Other Treatment Pt. declined to shower, as she had taken one yesterday. Does agree to change clothing and ambulate to therapy gym. Pt. taken off oxygen and oxygen is monitored throughout treatment session. Sats stay at 92%. Let PT know this after session. Pt. donned 1 lb. wrist weights in gym and completed therapy peg activity as well as nut/bolt activity for increased strength and fine motor skills. All needs met back in room after session. Education OT Patient Education: Correct positioning, Exercise program, Modified ADL techniques, Progress toward Goal/Update tx plan, Purpose of tx/functional activities, Reviewed precautions, Rehab process, Transfer techniques Teaching Recipient: Patient Teaching Methods: Demonstration, Discussion Response to Teaching: Verbalize Understanding, Return Demonstration OT Short Term Goals Short Term Goals Time Frame: Feb 07, 2018 Eating(FIM): 5 Grooming(FIM): 5 Bathing(FIM): 4 Upper Body Dressing(FIM): 5 Lower Body Dressing(FIM): 5 Toileting(FIM): 5 Transfers (B,C,W/C) (FIM): 5 Toilet/Commode Transfer(FIM): 5 Shower Transfer(FIM): 4 Additional Short Term Goals: 1-Demonstrate ADL Tasks, 2-Verbalize Understanding , 3-ImproveStrength/Cassandra 1=Demonstrate adherence to instructed precautions during ADL tasks. 2=Patient will verbalize/demonstrate understanding of assistive devices/ modifications for ADL. 3=Patient will improve strength/tolerance for activity to enable patient to perform ADL's. OT Type Caster Goals [facility] Goals Time Frame: Feb 14, 2018 Eating (FIM): 6 Eating (QC): 6 Groomin Oral Hygiene (QC): 6 Bathing(FIM): 5 Shower/Bathe Self (QC): 4 Upper Body Dressing(FIM): 6 Upper Body Dressing (QC): 6 Lower Body Dressing(FIM): 6 Lower Body Dressing (QC): 6 On/Off Footwear (QC): 6 Toileting(FIM): 6 Toileting Hygiene (QC): 6 Transfers (B,C,W/C) (FIM): 6 Toilet/Commode Transfer(FIM): 6 Toilet/Commode Transfer (QC): 6 Shower Transfer(FIM): 5 Comprehension(FIM): 6 Expression (FIM): 7 Social Interaction(FIM): 7 Problem Solving(FIM): 7 Memory(FIM): 7 Additional Goals: 1-Demonstrate ADL Tasks, 2-Verbalize Understanding, 3- ImproveStrength/Cassandra 1=Demonstrate adherence to instructed precautions during ADL tasks. 2=Patient will verbalize/demonstrate understanding of assistive devices/ modifications for ADL. 3=Patient will improve strength/tolerance for activity to enable patient to perform ADL's. OT Education/Plan Problem List/Assessment Assessment: Decreased Activ Tolerance, Impaired I ADL's, Impaired Self-Care Skills Discharge Recommendations Plan/Recommendations: Continue POC Therapy D/C Recommendations: Home w/ Family Support Treatment Plan/Plan of Care Treatment,Training & Education: Yes Patient would benefit from OT for education, treatment and training to promote independence in ADL's, mobility, safety and/or upper extremity function for ADL' s. Plan of Care: ADL Retraining, Functional Mobility, Group Exercise/Act as Ind, UE Funct Exercise/Act Treatment Duration: Feb 14, 2018 Frequency: 5 times per week Estimated Hrs Per Day: 1.5 hours per day Agreement: Yes Rehab Potential: Good Time/GCodes Start Time: 09:00 Stop Time: 10:00 Total Time Billed (hr/min): 60 Billed Treatment Time 1, ADL x 30minutes, FA x 30minutes ZELDA MEIER OT Feb 05, 2018 15:44
[2018-02-05 15:51] VITALS: BP 104/67
--- NOTE | 2018-02-05 15:52 | Occupational Ther Daily Note ---
OT Current Status-Daily Note Subjective Pt. is asleep in chair but wakes up when OT walks into room. Appearance Agrees to work with OT. Mental Status/Objective Patient Orientation: Person, Place, Time, Situation Therapy Code Descriptions/Definitions Functional [place] Measure: 0=Not Assessed/NA 4=Minimal Assistance 1=Total Assistance 5=Supervision or Setup 2=Maximal Assistance 6=Modified [place] 3=Moderate Assistance 7=Complete [place] Attachments: Oxygen ADL-Treatment Therapy Code Descriptions/Definitions Functional [place] Measure: 0=Not Assessed/NA 4=Minimal Assistance 1=Total Assistance 5=Supervision or Setup 2=Maximal Assistance 6=Modified [place] 3=Moderate Assistance 7=Complete [place] Therapy Quality Codes: 6 Independent with activity with or without an assistive device 5 Patient requires set up or clean up by helper. Patient completes activity by themselves 4 Supervision or touching assist (CGA). [place] provide cues , steadying assist 3 The helper provides less than half the effort to complete the activity 2 The helper provides more than half the effort to complete the activity 1 Dependent. The helper does all the effort to complete an activity 7 Patient refused to complete or attempt activity 9 The patient did not perform the activity before the current illness or injury 88 Not attempted due to Medical conditions or safety concerns Other Treatment Pt. is able to ambulate to kitchen area with SBA using walker. Participates in kitchen task for increased overall endurance and safety. Pt. stands at sink to wash hands, and then at counter to melt butter in microwave, and stir onto food being cooked. Pt. stood intermittently with rest breaks on seat of walker. Pt. states that she does do this at home as well. Verbalizes understanding of safety in kitchen. Ambulated back to room with all needs met. Education OT Patient Education: Modified ADL techniques, Progress toward Goal/Update tx plan, Purpose of tx/functional activities, Reviewed precautions, Rehab process, Transfer techniques Teaching Recipient: Patient Teaching Methods: Demonstration, Discussion Response to Teaching: Verbalize Understanding, Return Demonstration OT Short Term Goals Short Term Goals Time Frame: Feb 07, 2018 Eating(FIM): 5 Grooming(FIM): 5 Bathing(FIM): 4 Upper Body Dressing(FIM): 5 Lower Body Dressing(FIM): 5 Toileting(FIM): 5 Transfers (B,C,W/C) (FIM): 5 Toilet/Commode Transfer(FIM): 5 Shower Transfer(FIM): 4 Additional Short Term Goals: 1-Demonstrate ADL Tasks, 2-Verbalize Understanding , 3-ImproveStrength/Cassandra 1=Demonstrate adherence to instructed precautions during ADL tasks. 2=Patient will verbalize/demonstrate understanding of assistive devices/ modifications for ADL. 3=Patient will improve strength/tolerance for activity to enable patient to perform ADL's. OT Director Workers Compensation Goals Director Workers Compensation Goals Time Frame: Feb 14, 2018 Eating (FIM): 6 Eating (QC): 6 Groomin Oral Hygiene (QC): 6 Bathing(FIM): 5 Shower/Bathe Self (QC): 4 Upper Body Dressing(FIM): 6 Upper Body Dressing (QC): 6 Lower Body Dressing(FIM): 6 Lower Body Dressing (QC): 6 On/Off Footwear (QC): 6 Toileting(FIM): 6 Toileting Hygiene (QC): 6 Transfers (B,C,W/C) (FIM): 6 Toilet/Commode Transfer(FIM): 6 Toilet/Commode Transfer (QC): 6 Shower Transfer(FIM): 5 Comprehension(FIM): 6 Expression (FIM): 7 Social Interaction(FIM): 7 Problem Solving(FIM): 7 Memory(FIM): 7 Additional Goals: 1-Demonstrate ADL Tasks, 2-Verbalize Understanding, 3- ImproveStrength/Cassandra 1=Demonstrate adherence to instructed precautions during ADL tasks. 2=Patient will verbalize/demonstrate understanding of assistive devices/ modifications for ADL. 3=Patient will improve strength/tolerance for activity to enable patient to perform ADL's. OT Education/Plan Problem List/Assessment Assessment: Decreased Activ Tolerance Discharge Recommendations Plan/Recommendations: Continue POC Therapy D/C Recommendations: Home w/ Family Support Treatment Plan/Plan of Care Treatment,Training & Education: Yes Patient would benefit from OT for education, treatment and training to promote independence in ADL's, mobility, safety and/or upper extremity function for ADL' s. Plan of Care: ADL Retraining, Functional Mobility, Group Exercise/Act as Ind, UE Funct Exercise/Act Treatment Duration: Feb 14, 2018 Frequency: 5 times per week Estimated Hrs Per Day: 1.5 hours per day Agreement: Yes Rehab Potential: Good Time/GCodes Start Time: 11:30 Stop Time: 11:50 Total Time Billed (hr/min): 20 Billed Treatment Time 1, ADL ZELDA MEIER OT Feb 05, 2018 15:52
[2018-02-05] MEDS: RIVAROXABAN 15 MG TABLET (XARELTO) PO SCH (17:31)
[2018-02-05] MEDS: MIRTAZAPINE 15 MG (REMERON) TAB PO SCH (20:18)
[2018-02-06 05:36] VITALS: BP 141/86
[2018-02-06] MEDS: PANTOPRAZOLE 20 MG TABLET (PROTONIX) PO SCH (06:07)
[2018-02-06] MEDS: inSUlin ASPART (NovoLOG) 1 UNIT/0.01 ML (CHARGE PER UNIT) SC SCH ×4 (06:07→17:56)
[2018-02-06] MEDS: LORazepam 0.5 MG (ATIVAN) TABLET PO SCH (08:36)
[2018-02-06] MEDS: GABAPENTIN 300 MG (NEURONTIN) CAP PO SCH ×2 (08:37→20:32)
[2018-02-06] MEDS: MONTELUKAST 10 MG (SINGULAIR) TAB PO SCH (08:37)
[2018-02-06] MEDS: SOTALOL 80 MG (BETAPACE) TAB PO SCH (08:37)
[2018-02-06] MEDS: LOSARTAN 50 MG (COZAAR) TAB PO SCH (08:37)
--- NOTE | 2018-02-06 10:35 | Progress Note-Hospitalist ---
Subjective HPI/CC On Admission Date Seen by Provider: Feb 06, 2018 Time Seen by Provider: 09:30 Subjective/Events-last exam Patient doing very well Ready to go home today or tomorrow Will have to redo home oxygen evaluation since she met criteria when she was on MedSurg but since she did not go home within 48 hours of that test she will have to be re-tested Dr. Palma informed the nurse that she needs a CPAP production broaching machine operator due to the fact that her outpatient sleep study performed by [facility] in [facility] showed evidence of sleep apnea so will need close follow-up with Dr. Palma to set that up as an outpatient after she is discharged. I'm assuming since Dr. Palma is pulmonary coordinator of rehabilitation services at [facility] here in [place] he will have a close follow-up with the patient utilizing [facility] sleep study that he ordered. No pain is reported Review of Systems General: Fatigue Objective Exam Vital Signs Vital Signs Date Time Temp Pulse Resp B/P (MAP) Pulse Ox O2 Delivery O2 Flow Rate FiO2 02/06/18 08:00 Nasal Cannula 3.00 02/06/18 05:36 98.1 70 20 141/86 (104) 94 02/02/18 10:39 40 Capillary Refill : Less Than 3 Seconds General Appearance: No Apparent Distress, WD/WN, Chronically ill Respiratory: Chest Non Tender, Lungs Clear, Normal Breath Sounds, No Accessory Muscle Use, No Respiratory Distress Cardiovascular: Regular Rate, Rhythm, No Edema, No Gallop, No JVD, No Murmur, Normal Peripheral Pulses Neurologic/Psychiatric: Alert, Oriented x3, No Motor/Sensory Deficits, Normal Mood/Affect Results/Procedures Lab Patient resulted labs reviewed. Assessment/Plan Assessment and Plan Assess & Plan/Chief Complaint Assessment: Debility MM Pulmonary disease New onset MAL[place] per sleep study from [facility] ordered by Dr Palma [facility] Pulmonary technical solutions director will need CPAP set up at [place] by his office SSS Pacemaker Plan: DC home soon Home O2 evaluation Chemo per Oncology Diagnosis/Problems Diagnosis/Problems (1) Debility Status: Acute (2) RESPIRATORY FAILURE, UNSP, UNSP W HYPOXIA OR HYPERCAPNIA Status: Chronic (3) Oxygen dependent Status: Chronic (4) Multiple myeloma Status: Chronic Qualifiers: Multiple myeloma remission status: not in remission Qualified Codes: C90.00 - Multiple myeloma not having achieved remission (5) Atrial fibrillation Status: Chronic Qualifiers: Atrial fibrillation type: chronic Qualified Codes: I48.2 - Chronic atrial fibrillation Clinical Quality Measures DVT/VTE Risk/Contraindication: Risk Factor Score Per Nursin RFS Level Per Nursing on Admit: 2=Moderate ROLF AMADO DO Feb 06, 2018 10:35
--- NOTE | 2018-02-06 10:55 | Physical Therapy Daily Note ---
PT Daily Note-Current Subjective Pt. agrees to Rx. States she did not use O2 at home but is open to using it if she needs ot and open to learning to manage extended O2 tubing. Pt. expresses that she really wants to go home today. Pain Location: No Pain Reported Mental Status Patient Orientation: Person, Place, Time, Situation Transfers Therapy Code Descriptions/Definitions Functional [place] Measure: 0=Not Assessed/NA 4=Minimal Assistance 1=Total Assistance 5=Supervision or Setup 2=Maximal Assistance 6=Modified [place] 3=Moderate Assistance 7=Complete [place] Therapy Quality Codes: 6 Independent with activity with or without an assistive device 5 Patient requires set up or clean up by helper. Patient completes activity by themselves 4 Supervision or touching assist (CGA). [place] provide cues , steadying assist 3 The helper provides less than half the effort to complete the activity 2 The helper provides more than half the effort to complete the activity 1 Dependent. The helper does all the effort to complete an activity 7 Patient refused to complete or attempt activity 9 The patient did not perform the activity before the current illness or injury 88 Not attempted due to Medical conditions or safety concerns Transfers (B, C, W/C) (FIM): 6 Scootin Rollin Roll Left to Right (QC): 5 Supine to/from Sit: 6 Sit to/from Stand: 6 Sit to Lying (QC): 5 Sit to Stand (QC): 5 Chair/Zzn-nb-Iccxw Xfer(QC): 5 Bed to/from Chair: 6 Car Transfer (QC): 5 Weight Bearing Right Lower Extremity: Right Weight Bearing/Tolerated Left Lower Extremity: Left Weight Bearing/Tolerated Gait Training Does the Patient Walk?: Yes Gait (FIM): 6 Distance (FIM): 3=150 ft (200x3) Walk 10 feet (QC): 5 Walk 50 ft with 2 Turns(QC): 5 Walk 150 ft (QC): 5 Walking 10ft/uneven surface-QC: 5 Gait Level of Assist: 6 Gait Persons Needed: 1 Gait Assistive Device: Walker 4 Wheeled needed training and instruction in use of extended O2 tubing and safety, did well and seemed cognizant of the risks Stair Training Stair Training: Handrails/: 2 handrails Stairs (FIM): 2 #of Steps: 4 1 Step (curb) (QC): 2 4 Steps (QC): 2 Stairs: Pattern: Step to Level of Assist: 4 min instruction for sequence Balance Picking up an Object (QC): 5 Exercises Supine Ex: Bridging, Ankle pumps, Quad Set, Rolling, Glut sets, Heel Slides, Short Arc Quads, Scooting, Straight leg raise, Hip abd/add Supine Reps: 15 Seated Therapy Exercises: Ankle pumps, Sit to stand, Long arc quads, Hip flexion Seated Reps: 15 Assessment Current Status: Good Progress no LOB, followed all instruction PT Short Term Goals Short Term Goals Time Frame: Feb 07, 2018 Transfers (B,C,W/C) (FIM): 5 Gait (FIM): 5 Gait Distance Comment: 150' Gait Level of Assist: 5 Gait Assistive Device: FWW PT Crew Clerk Goals Half-Way Goals PT Half-Way Goals Time Frame: Feb 21, 2018 Transfers (B,C,W/C) (FIM): 6 Sit to Lying (QC): 6 Lying-Sitting on Side/Bed(QC): 6 Sit to Stand (QC): 6 Rollin Roll Left to Right (QC): 6 Chair/Kci-fh-Tmjhy Xfer(QC): 6 Car Transfer (QC): 6 Gait (FIM): 6 Distance: 200' Walk 10 feet (QC): 6 Walk 10ft-Uneven Surface(QC): 6 Walk 50ft with 2 Turns (QC): 6 Walk 150 ft (QC): 6 Gait Level of Assist: 6 Gait Assistive Device: FWW Stairs (FIM): 2 # of Steps: 4 1 Step (curb) (QC): 4 4 Steps (QC): 4 Stairs Level Of Assist: 5 PT Plan Treatment/Plan Treatment Plan: Continue Plan of Care Treatment Plan: Bed Mobility, Education, Functional Activity Cassandra, Functional Strength, Group Therapy, Gait, Safety, Therapeutic Exercise, Transfers Treatment Duration: Feb 21, 2018 Frequency: At least 5 of 7 days/Wk (IRF) Estimated Hrs Per Day: 1.5 hours per day Patient and/or Family Agrees t: Yes Safety Risks/Education Patient Education: Gait Training, Transfer Techniques, Steps, Correct Positioning, Disease Process, Safety Issues Teaching Recipient: Patient Teaching Methods: Demonstration, Discussion Response to Teaching: Verbalize Understanding, Return Demonstration, Reinforcement Needed Time/GCodes Time In: 1000 Time Out: 1100 Total Billed Treatment Time: 60 Total Billed Treatment 1,GT15m,EX20m,FA25m G Codes Necessary: EKATERINA Troncoso NUTRITION ASSISTANT Feb 06, 2018 10:55
--- NOTE | 2018-02-06 11:14 | Speech Therapy Daily Note ---
Speech Daily Progress Note Subjective Date Seen by Provider: Feb 06, 2018 Time Seen by Provider: 00:30 Patient was sitting up in her recliner resting when I arrived for speech therapy. Objective Patient completed problem solving tasks related to safety with 80% accuracy with moderate verbal cues. Communication Comprehension: 3 Expression: 3 Social Cognition Social Interaction: 4 Problem Solvin Memory: 2 Speech Short Term Goals Short Term Goals Short Term Goals 1) Patient will remember objects and their function with 90% accuracy, independently. 2) Patient will complete word finding exercises with 90% accuracy, independently. Speech Fdc Goals Paraffin Plant Operator Goals Patient will improve memory and comprehension for increased safety awareness and independence. Comprehension: 6 Expression: 7 Social Interaction: 7 Problem Solvin Memory: 7 Speech-Plan Patient/Family Goals Patient/Family Goals: Patient plans to return home with family support post rehab. Treatment Plan Speech Therapy Treatment Plan: Continue Plan of Care Patient states frequently she wants to return home soon to be able to prepare for [place]. Treatment Duration: Feb 08, 2018 Frequency: 5 times per week Estimated Hrs Per Day: .5 hour per day Rehab Potential: Good Barriers to Learning: Patient has mild memory and problem solving deficits. Pt/Family Agrees to Plan: Yes Safety Risks/Education Teaching Recipient: Patient Teaching Methods: Discussion Response to Teaching: Verbalize Understanding Education Topics Provided: Safety scenarios Time Speech Therapy Time In: 08:30 Speech Therapy Time Out: 09:00 Total Billed Time: 30 Billed Treatment Time [address] Feb 06, 2018 11:14
--- NOTE | 2018-02-06 13:43 | Occupational Ther Daily Note ---
OT Current Status-Daily Note Subjective No pain reported. Pt. states that she is ready to go home. Appearance Pt. up in chair. Agrees to treatment. Mental Status/Objective Patient Orientation: Person, Place, Time, Situation Therapy Code Descriptions/Definitions Functional [place] Measure: 0=Not Assessed/NA 4=Minimal Assistance 1=Total Assistance 5=Supervision or Setup 2=Maximal Assistance 6=Modified [place] 3=Moderate Assistance 7=Complete [place] ADL-Treatment Therapy Code Descriptions/Definitions Functional [place] Measure: 0=Not Assessed/NA 4=Minimal Assistance 1=Total Assistance 5=Supervision or Setup 2=Maximal Assistance 6=Modified [place] 3=Moderate Assistance 7=Complete [place] Therapy Quality Codes: 6 Independent with activity with or without an assistive device 5 Patient requires set up or clean up by helper. Patient completes activity by themselves 4 Supervision or touching assist (CGA). [place] provide cues , steadying assist 3 The helper provides less than half the effort to complete the activity 2 The helper provides more than half the effort to complete the activity 1 Dependent. The helper does all the effort to complete an activity 7 Patient refused to complete or attempt activity 9 The patient did not perform the activity before the current illness or injury 88 Not attempted due to Medical conditions or safety concerns Eating (FIM): 6 Eating (QC): 6 Grooming (FIM): 6 Oral Hygiene (QC): 6 Bathing (FIM): 5 (SBA to shower.) Shower/Bathe Self (QC): 4 Upper Body (FIM): 4 (Pt. did require min assist to fasten bra. Able to don shirt with Mod I.) Upper Body Dressing (QC): 4 Lower Body Dressing (FIM): 6 Lower Body Dressing (QC): 6 On/Off Footwear (QC): 6 Toileting (FIM): 6 Toileting Hygiene (QC): 6 Transfers (B, C, W/C) (FIM): 6 Toilet/Commode Transfer (FIM): 6 Toilet Transfer (QC): 6 Shower Transfer(FIM): 5 Education OT Patient Education: Modified ADL techniques, Progress toward Goal/Update tx plan, Purpose of tx/functional activities, Reviewed precautions, Rehab process, Transfer techniques Teaching Recipient: Patient Teaching Methods: Demonstration, Discussion Response to Teaching: Verbalize Understanding, Return Demonstration OT Short Term Goals Short Term Goals Time Frame: Feb 07, 2018 Eating(FIM): 5 Grooming(FIM): 5 Bathing(FIM): 4 Upper Body Dressing(FIM): 5 Lower Body Dressing(FIM): 5 Toileting(FIM): 5 Transfers (B,C,W/C) (FIM): 5 Toilet/Commode Transfer(FIM): 5 Shower Transfer(FIM): 4 Additional Short Term Goals: 1-Demonstrate ADL Tasks, 2-Verbalize Understanding , 3-ImproveStrength/Cassandra 1=Demonstrate adherence to instructed precautions during ADL tasks. 2=Patient will verbalize/demonstrate understanding of assistive devices/ modifications for ADL. 3=Patient will improve strength/tolerance for activity to enable patient to perform ADL's. OT Half-Way Goals Group Sales Manager Goals Time Frame: Feb 14, 2018 Eating (FIM): 6 Eating (QC): 6 Groomin Oral Hygiene (QC): 6 Bathing(FIM): 5 Shower/Bathe Self (QC): 4 Upper Body Dressing(FIM): 6 Upper Body Dressing (QC): 6 Lower Body Dressing(FIM): 6 Lower Body Dressing (QC): 6 On/Off Footwear (QC): 6 Toileting(FIM): 6 Toileting Hygiene (QC): 6 Transfers (B,C,W/C) (FIM): 6 Toilet/Commode Transfer(FIM): 6 Toilet/Commode Transfer (QC): 6 Shower Transfer(FIM): 5 Comprehension(FIM): 6 Expression (FIM): 7 Social Interaction(FIM): 7 Problem Solving(FIM): 7 Memory(FIM): 7 Additional Goals: 1-Demonstrate ADL Tasks, 2-Verbalize Understanding, 3- ImproveStrength/Cassandra 1=Demonstrate adherence to instructed precautions during ADL tasks. 2=Patient will verbalize/demonstrate understanding of assistive devices/ modifications for ADL. 3=Patient will improve strength/tolerance for activity to enable patient to perform ADL's. OT Education/Plan Discharge Recommendations Plan/Recommendations: Continue POC Therapy D/C Recommendations: Home w/ Family Support, Occupational Therapy Home Care Treatment Plan/Plan of Care Treatment,Training & Education: Yes Patient would benefit from OT for education, treatment and training to promote independence in ADL's, mobility, safety and/or upper extremity function for ADL' s. Plan of Care: ADL Retraining, Functional Mobility, Group Exercise/Act as Ind, UE Funct Exercise/Act Treatment Duration: Feb 14, 2018 Frequency: At least 5 of 7 days/Wk (IRF) Estimated Hrs Per Day: 1.5 hours per day Agreement: Yes Rehab Potential: Good Time/GCodes Start Time: 09:15 Stop Time: 10:00 Total Time Billed (hr/min): 45 Billed Treatment Time 1, ADL x 3 ZELDA MEIER OT Feb 06, 2018 13:42
--- NOTE | 2018-02-06 14:26 | Therapy Group Daily Note ---
Therapy Daily Group Note Patient Education Topic Home Safety, Other List Below (see below) Exercises LE Seated Exercise, UE Exercise Other/Notes Pt. participated in group PT OT session this date. Pt. ambulated to and from with SBA and FWW. Pt. was pleasant and social, introducing herself and sharing her place of and favorite [employer] movie. Pts. participated in seated U& L extremity exercises that were suggested and lead by various patients in the group as they recalled them from their work in therapy. Home safety was main topic of education covering lighting, cooking, stairs, walking surfaces and other challenges and risk factors they may face at home. ARU description and expectations were also reviewed featuring what FIM testing is as well as what Wed team meeting purpose is. Pt. to room after group up in chair with melendrez at hand, needs met. Start Time: 13:00 Stop Time: 14:10 Total Billed Treatment Time: 70 Total Billed Treatment 1,GRP EKATERINA GARCIA INSTRUMENT TECHNICIAN Feb 06, 2018 14:26
--- NOTE | 2018-02-06 16:13 | Oncology Progress Note ---
Subjective Date Seen by a Provider: Feb 06, 2018 Time Seen by a Provider: 16:10 Subjective/Events-last exam Pt wants to go home with home O2. Overall doing better, slowly improving. Data Review Labs Laboratory Tests 02/03/18 16:35: Glucometer 141H 02/03/18 20:42: Glucometer 152H 02/04/18 06:37: Glucometer 116H 02/04/18 09:24: Glucometer 181H 02/04/18 15:01: Glucometer 141H 02/04/18 15:30: Red Blood Count 3.62L, Hemoglobin 11.2L, Mean Corpuscular Volume 102H, Mean Corpuscular Hemoglobin Concent 30L, Red Cell Distribution Width 16.0H 02/04/18 20:42: Glucometer 141H 02/05/18 05:49: 02/05/18 09:33: Glucometer 160H 02/05/18 15:04: Glucometer 130H 02/05/18 20:18: Glucometer 150H 02/06/18 06:06: 02/06/18 09:24: 02/06/18 15:15: Glucometer 168H Physical Exam Vital Signs Vital Signs - First Documented 01/31/18 02/02/18 11:15 10:39 Temp 98.0 Pulse 80 Resp 22 B/P (MAP) 103/69 (80) Pulse Ox 95 O2 Delivery Nasal Cannula O2 Flow Rate 5.00 FiO2 40 Capillary Refill : Less Than 3 Seconds Height, Weight, BMI Height: 5'3.00" Weight: 168lbs. 6.4oz. 76.454539ov; 29.2 BMI Method:Stated General Appearance: No Apparent Distress HEENT: PERRL/EOMI Neck: Non Tender, Supple Respiratory: No Accessory Muscle Use, No Respiratory Distress Extremity: Non Tender, No Calf Tenderness, No Pedal Edema Neurologic/Psychiatric: Alert, Oriented x3 Impression & Plan Impression & Plan IMP: 1. Hypoxia, persistent cough and pulmonary congestions/edema. Slowly improving. 2. Multiple myeloma disease stable on current chemo Bladimir+Dex. Last dose 2017 3. Leukopenia 4. h/o CAD, Pace Maker and CHF 5. Acute renal failure, improving Cr 1.7 now down to 1.1 6. On rehab Plan: 1. Hold off chemo for a month until she fully recovers from this event. 2. Possible home in 2-3 days. See me in cancer 2 weeks after discharge 3. Physical therapy 4. Pt can go home from Hem/Onc point of view. I have her see me on 03/04/18 at @2 :45 at cancer center Clinical Quality Measures DVT/VTE Risk/Contraindication: Risk Factor Score Per Nursin RFS Level Per Nursing on Admit: 2=Moderate PAN GARRISON MD Feb 06, 2018 16:13
[2018-02-06] MEDS: RIVAROXABAN 15 MG TABLET (XARELTO) PO SCH (17:06)
--- NOTE | 2018-02-06 17:32 | PM & R (SOAP) Progress Note ---
Subjective This was a face to face visit with the patient. Date Seen by Provider: Feb 06, 2018 Time Seen by Provider: 08:00 Subjective/Events-last exam Patient was seen in her room this AM Patient Modified Independent in room with walker and 02 tether line Exercise oximetry in process to document need for home 02 Review of Systems Pulmonary: Dyspnea Objective Physician Exam Last Set of Vital Signs Vital Signs Date Time Temp Pulse Resp B/P (MAP) Pulse Ox O2 Delivery O2 Flow Rate FiO2 02/06/18 14:35 Nasal Cannula 3.00 02/06/18 05:36 98.1 70 20 141/86 (104) 94 02/02/18 10:39 40 Capillary Refill : Less Than 3 Seconds I&O Intake and Output 02/06/18 00:00 Intake Total 890 ml Balance 890 ml Intake Oral 890 ml # Voids 6 General: Alert, Oriented X3, Cooperative, No Acute Distress HEENT: Atraumatic, PERRLA, EOMI, Mucous Memb Moist/[place], Other (02 by N/C in Place) Neck: Supple, No JVD Lungs: Other (decreased breath sounds at bases) Heart: Regular Rate Abdomen: Normal Bowel Sounds, Soft, No Tenderness Extremities: Other (trace edema) Skin: No Rashes, No Breakdown Neuro: Other (generalized weakness) Results Lab Data Laboratory Tests 02/03/18 20:42: Glucometer 152H 02/04/18 06:37: Glucometer 116H 02/04/18 09:24: Glucometer 181H 02/04/18 15:01: Glucometer 141H 02/04/18 15:30: White Blood Count 7.0, Red Blood Count 3.62L, Hemoglobin 11.2L, Hematocrit 37, Mean Corpuscular Volume 102H, Mean Corpuscular Hemoglobin 31, Mean Corpuscular Hemoglobin Concent 30L, Red Cell Distribution Width 16.0H, Platelet Count 285, Mean Platelet Volume 9.9, Neutrophils (%) (Auto) 62, Lymphocytes (%) (Auto) 23, Monocytes (%) (Auto) 10, Eosinophils (%) (Auto) 5, Basophils (%) (Auto) 0, Neutrophils # (Auto) 4.3, Lymphocytes # (Auto) 1.6, Monocytes # (Auto) 0.7, Eosinophils # (Auto) 0.3, Basophils # (Auto) 0.0 02/04/18 20:42: Glucometer 141H 02/05/18 05:49: Glucometer 95 02/05/18 09:33: Glucometer 160H 02/05/18 15:04: Glucometer 130H 02/05/18 20:18: Glucometer 150H 02/06/18 06:06: Glucometer 87 02/06/18 09:24: Glucometer 92 02/06/18 15:15: Glucometer 168H Assessment/Plan Assessment and Plan general debil secondary to bout of bronchitis 02 dependence HTN OA s/p bilateral TKRS Multiple myeloma followed by Med[facility] Hypercholesteremia S/P Pacemaker Plan Discharge tomorrow to home F/U with PCP Document need for home 02 with exercise oximetry Current meds reviewed Co-Morbidities that are continuing to impact the rehab process: (include details ) TAE MENDOZA MD Feb 06, 2018 17:32
[2018-02-06] MEDS ORDERED: LORA0.5T PO (17:35)
[2018-02-06 18:18] VITALS: BP 122/78
[2018-02-06] MEDS: MIRTAZAPINE 15 MG (REMERON) TAB PO SCH (20:32)
[2018-02-07] MEDS: inSUlin ASPART (NovoLOG) 1 UNIT/0.01 ML (CHARGE PER UNIT) SC SCH (05:57)
[2018-02-07] MEDS: PANTOPRAZOLE 20 MG TABLET (PROTONIX) PO SCH (05:57)
[2018-02-07 06:00] VITALS: BP 119/76
--- NOTE | 2018-02-07 08:05 | PM & R (SOAP) Progress Note ---
Subjective This was a face to face visit with the patient. Date Seen by Provider: Feb 07, 2018 Time Seen by Provider: 07:40 Subjective/Events-last exam Patient was seen in her room this AM [place] for discharge Will confirm exercise oximetry results Patient to go home with 02 Date Identified: Feb 07, 2018 Time Identified: 07:40 Medication Intervention: Discharge meds reviewed Objective Physician Exam Last Set of Vital Signs Vital Signs Date Time Temp Pulse Resp B/P (MAP) Pulse Ox O2 Delivery O2 Flow Rate FiO2 02/07/18 06:00 98.2 64 18 119/76 (90) 93 Nasal Cannula 3.00 02/02/18 10:39 40 Capillary Refill : Less Than 3 Seconds I&O Intake and Output 02/07/18 00:00 Intake Total 1250 ml Balance 1250 ml Intake Oral 1250 ml # Voids 4 General: Alert, Oriented X3, Cooperative, No Acute Distress HEENT: Atraumatic, PERRLA, EOMI, Mucous Memb Moist/[place], Other (02 by N/C in Place) Neck: Supple, No JVD Lungs: Other (decreased breath sounds at bases) Heart: Regular Rate Abdomen: Normal Bowel Sounds, Soft, No Tenderness Extremities: Other (trace edema) Skin: No Rashes, No Breakdown Neuro: Other (generalized weakness) Results Lab Data Laboratory Tests 02/04/18 09:24: Glucometer 181H 02/04/18 15:01: Glucometer 141H 02/04/18 15:30: White Blood Count 7.0, Red Blood Count 3.62L, Hemoglobin 11.2L, Hematocrit 37, Mean Corpuscular Volume 102H, Mean Corpuscular Hemoglobin 31, Mean Corpuscular Hemoglobin Concent 30L, Red Cell Distribution Width 16.0H, Platelet Count 285, Mean Platelet Volume 9.9, Neutrophils (%) (Auto) 62, Lymphocytes (%) (Auto) 23, Monocytes (%) (Auto) 10, Eosinophils (%) (Auto) 5, Basophils (%) (Auto) 0, Neutrophils # (Auto) 4.3, Lymphocytes # (Auto) 1.6, Monocytes # (Auto) 0.7, Eosinophils # (Auto) 0.3, Basophils # (Auto) 0.0 02/04/18 20:42: Glucometer 141H 02/05/18 05:49: Glucometer 95 02/05/18 09:33: Glucometer 160H 02/05/18 15:04: Glucometer 130H 02/05/18 20:18: Glucometer 150H 02/06/18 06:06: Glucometer 87 02/06/18 09:24: Glucometer 92 02/06/18 15:15: Glucometer 168H 02/06/18 20:34: Glucometer 178H 02/07/18 05:54: Glucometer 84 Assessment/Plan Assessment and Plan Home today F/U with PCP See orders Discharge meds reviewed Co-Morbidities that are continuing to impact the rehab process: (include details ) TAE MENDOZA MD Feb 07, 2018 08:05
[2018-02-07] MEDS: LORazepam 0.5 MG (ATIVAN) TABLET PO SCH (08:56)
[2018-02-07] MEDS: GABAPENTIN 300 MG (NEURONTIN) CAP PO SCH (08:57)
[2018-02-07] MEDS: SOTALOL 80 MG (BETAPACE) TAB PO SCH (08:57)
[2018-02-07] MEDS: MONTELUKAST 10 MG (SINGULAIR) TAB PO SCH (08:57)
[2018-02-07] MEDS: LOSARTAN 50 MG (COZAAR) TAB PO SCH (08:57)
--- NOTE | 2018-02-07 09:42 | Therapy Team Discharge Summary ---
Therapy Discharge Summary Discharge Recommendations Date of Discharge 02-07-18 Therapy D/C Recommendations: Home w/ Family Support, Occupational Therapy Home Care Occupational Therapy Pt. has been seen by occupational therapy to increase overall strength and endurance. Pt. has met most goals. Does occasionally require assistance to fasten bra and shirt. Otherwise, is able to dress and bathe self. Home health OT was recommended to make sure pt. is safe on her own in her home. However, pt. does have good support. Decreased Activ Tolerance PT Fdc Goals Fdc Goals PT Plywood Layup Line Core Feeder Goals Time Frame: Feb 21, 2018 Transfers (B,C,W/C) (FIM): 6 Roll Left to Right (QC): 6 Sit to Lying (QC): 6 Lying-Sitting on Side/Bed(QC): 6 Sit to Stand (QC): 6 Chair/Ujv-zl-Bpniq Xfer(QC): 6 Car Transfer (QC): 6 Gait (FIM): 6 Distance: 200' Walk 10 feet (QC): 6 Walk 10ft-Uneven Surface(QC): 6 Walk 50ft with 2 Turns (QC): 6 Walk 150 ft (QC): 6 Gait Level of Assist: 6 Gait Assistive Device: FWW Stairs (FIM): 2 # of Steps: 4 1 Step (curb) (QC): 4 4 Steps (QC): 4 Stairs Level Of Assist: 5 OT Fdc Goals Plywood Layup Line Core Feeder Goals Time Frame: Feb 14, 2018 Eating (FIM): 6 (met) Eating (QC): 6 (met) Oral Hygiene (QC): 6 (met) Grooming(FIM): 6 (met) Bathing(FIM): 5 (met) Shower/Bathe Self (QC): 4 (met) Upper Body Dressing(FIM): 4 (Not met) Upper Body Dressing (QC): 4 (not met) Lower Body Dressing(FIM): 6 (met) Lower Body Dressing (QC): 6 (met) On/Off Footwear (QC): 6 (met) Toileting(FIM): 6 (met) Toileting Hygiene (QC): 6 (met) Transfers (B,C,W/C) (FIM): 6 (met) Toilet/Commode Transfer(FIM): 6 (met) Toilet/Commode Transfer (QC): 6 (met) Shower Transfer(FIM): 5 (met) Comprehension(FIM): 6 Expression (FIM): 7 Social Interaction(FIM): 7 Problem Solving(FIM): 7 Memory(FIM): 7 Additional Goals: 1-Demonstrate ADL Tasks, 2-Verbalize Understanding, 3- ImproveStrength/Cassandra 1=Demonstrate adherence to instructed precautions during ADL tasks. 2=Patient will verbalize/demonstrate understanding of assistive devices/ modifications for ADL. 3=Patient will improve strength/tolerance for activity to enable patient to perform ADL's. Speech Plywood Layup Line Core Feeder Goals Fdc Goals Patient will improve memory and comprehension for increased safety awareness and independence. Comprehension: 6 Expression: 7 Social Interaction: 7 Problem Solvin Memory: 7 ZELDA MEIER OT Feb 07, 2018 09:42
--- NOTE | 2018-02-07 10:34 | D/C HH Face to Face Order ---
D/C Face to Face Orders Instructions for Patient Via [facility], Patient Instructions/FollowUp: Dr. Palma Physician to follow Patient: Dr. Palma Discharge Diet for Home: Regular Diet Patient Problems: 02 dependence Patient Data-Allergies,Ht & Wt Patient Allergies: Coded Allergies: No Known Drug Allergies (Unverified , 11/11/15) Height (Feet): 5 Height (Inches): 3.00 Weight (Pounds): 168 Weight (Ounces): 6.4 Home Health Need/Face to Face Date of Face to Face: Feb 07, 2018 Clinical Findings: Generalized weakness and fatigue, Muscle weakness, Shortness of breath I have seen Pt [id number]: Yes Discharged To: Home Diagnosis/Conditions: Respiratory distress Patient is Homebound due to: Muscle weakness, Shortness of breath/distress Homebound Status Due to the above stated illness, injury or surgical procedure (medical condition or diagnosis) and associated clinical findings, the patient is homebound because of his/her inability to leave home except with aid of a supportive device and/or person AND leaving the home requires a considerable and taxing effort or is medically contraindicated. Pt req the following assistanc: Aid of another person Home Health Nursing Orders Home Health Services Order: Nursing Services, Physical Therapy-Evaluate & Treat Home Health Infusion Therapy Line Type: [place]ine Lock Site Location: Wrist Therapy Orders Therapy Orders: Physical Therapy Therapy Specific Orders: Eval assistive deivces, Teach enviro modifications/ safety, Gait training, Increase strength/endurance, Restore ROM Certify Stmt I certify that this patient is under my care and that I, a nurse practitioner or a physician; a assistant plant controller working with me, had a face to face encounter that - meets the physician face to face encounter requirements with this patient as dated. I personally scribed for TAE MENDOZA MD) on 02/07/18 at 10:17. Electronically submitted by Yvette Chase ([id number]). I personally scribed for TAE MENDOZA MD) on 02/07/18 at 10:29. Electronically submitted by Yvette Chase ([id number]). I personally scribed for TAE MENDOZA MD) on 02/07/18 at 10:34. Electronically submitted by Yvette Chase ([id number]). TAE MENDOZA MD Feb 07, 2018 10:17
--- NOTE | 2018-02-07 10:57 | Therapy Team Discharge Summary ---
Therapy Discharge Summary Discharge Recommendations Date of Discharge 02/07/18 Therapy D/C Recommendations: Home w/ Family Support, Occupational Therapy Home Care, Physical Therapy Home Care Physical Therapy This patient was seen on ARU post acute hospital stay for respiratory distress and bronchitis. Upon initial evaluaiton, she required min assist with transfers and walked 120 ft with min assist and could go up/down a curb step. Treatment consisted of functional strengthening, gait training, safety, balance and management of oxygen tubing. At discharge, she is mod indep with transfers and gait as stairs. She has made good progress and achieved all goals to a satisfactory level. She is to discharge home this date with recommend C PT. DC PT . Occupational Therapy Decreased Activ Tolerance PT Furniture Installer Goals Longterm Goals PT Furniture Installer Goals Time Frame: Feb 21, 2018 Transfers (B,C,W/C) (FIM): 6 Roll Left to Right (QC): 6 Sit to Lying (QC): 6 Lying-Sitting on Side/Bed(QC): 6 Sit to Stand (QC): 6 Chair/Kht-sb-Vkkgm Xfer(QC): 6 Car Transfer (QC): 6 Gait (FIM): 6 (met) Distance: 200' Walk 10 feet (QC): 6 Walk 10ft-Uneven Surface(QC): 6 Walk 50ft with 2 Turns (QC): 6 Walk 150 ft (QC): 6 Gait Level of Assist: 6 Gait Assistive Device: FWW Stairs (FIM): 2 (met) # of Steps: 4 1 Step (curb) (QC): 4 4 Steps (QC): 4 Stairs Level Of Assist: 5 all goals met to a satisfactory level. OT Longterm Goals Furniture Installer Goals Time Frame: Feb 14, 2018 Eating (FIM): 6 (met) Eating (QC): 6 (met) Oral Hygiene (QC): 6 (met) Grooming(FIM): 6 (met) Bathing(FIM): 5 (met) Shower/Bathe Self (QC): 4 (met) Upper Body Dressing(FIM): 4 (Not met) Upper Body Dressing (QC): 4 (not met) Lower Body Dressing(FIM): 6 (met) Lower Body Dressing (QC): 6 (met) On/Off Footwear (QC): 6 (met) Toileting(FIM): 6 (met) Toileting Hygiene (QC): 6 (met) Transfers (B,C,W/C) (FIM): 6 (met) Toilet/Commode Transfer(FIM): 6 (met) Toilet/Commode Transfer (QC): 6 (met) Shower Transfer(FIM): 5 (met) Comprehension(FIM): 6 Expression (FIM): 7 Social Interaction(FIM): 7 Problem Solving(FIM): 7 Memory(FIM): 7 Additional Goals: 1-Demonstrate ADL Tasks, 2-Verbalize Understanding, 3- ImproveStrength/Cassandra 1=Demonstrate adherence to instructed precautions during ADL tasks. 2=Patient will verbalize/demonstrate understanding of assistive devices/ modifications for ADL. 3=Patient will improve strength/tolerance for activity to enable patient to perform ADL's. Speech Longterm Goals Furniture Installer Goals Patient will improve memory and comprehension for increased safety awareness and independence. Comprehension: 6 Expression: 7 Social Interaction: 7 Problem Solvin Memory: 7 KEN DRISCOLL PT Feb 07, 2018 10:57
--- NOTE | 2018-02-07 14:17 | Therapy Team Discharge Summary ---
Therapy Discharge Summary Discharge Recommendations Date of Discharge 02/07/2018 Therapy D/C Recommendations: Home w/ Family Support, Occupational Therapy Home Care, Physical Therapy Home Care Occupational Therapy Decreased Activ Tolerance Speech-Language Pathology Patient was admitted to ARU due to CVA. Patient was seen for memory and problem skills. Patient made excellent gains, meeting all goals and was able to return home this date with family support. Patient is discharged from skilled therapy at this time. PT Shelter Goals Shelter Goals PT Freight Car Cleaner Goals Time Frame: Feb 21, 2018 Transfers (B,C,W/C) (FIM): 6 Roll Left to Right (QC): 6 Sit to Lying (QC): 6 Lying-Sitting on Side/Bed(QC): 6 Sit to Stand (QC): 6 Chair/Tzr-gk-Mpmqm Xfer(QC): 6 Car Transfer (QC): 6 Gait (FIM): 6 (met) Distance: 200' Walk 10 feet (QC): 6 Walk 10ft-Uneven Surface(QC): 6 Walk 50ft with 2 Turns (QC): 6 Walk 150 ft (QC): 6 Gait Level of Assist: 6 Gait Assistive Device: FWW Stairs (FIM): 2 (met) # of Steps: 4 1 Step (curb) (QC): 4 4 Steps (QC): 4 Stairs Level Of Assist: 5 OT Freight Car Cleaner Goals Shelter Goals Time Frame: Feb 14, 2018 Eating (FIM): 6 (met) Eating (QC): 6 (met) Oral Hygiene (QC): 6 (met) Grooming(FIM): 6 (met) Bathing(FIM): 5 (met) Shower/Bathe Self (QC): 4 (met) Upper Body Dressing(FIM): 4 (Not met) Upper Body Dressing (QC): 4 (not met) Lower Body Dressing(FIM): 6 (met) Lower Body Dressing (QC): 6 (met) On/Off Footwear (QC): 6 (met) Toileting(FIM): 6 (met) Toileting Hygiene (QC): 6 (met) Transfers (B,C,W/C) (FIM): 6 (met) Toilet/Commode Transfer(FIM): 6 (met) Toilet/Commode Transfer (QC): 6 (met) Shower Transfer(FIM): 5 (met) Comprehension(FIM): 6 Expression (FIM): 7 Social Interaction(FIM): 7 Problem Solving(FIM): 7 Memory(FIM): 7 Additional Goals: 1-Demonstrate ADL Tasks, 2-Verbalize Understanding, 3- ImproveStrength/Cassandra 1=Demonstrate adherence to instructed precautions during ADL tasks. 2=Patient will verbalize/demonstrate understanding of assistive devices/ modifications for ADL. 3=Patient will improve strength/tolerance for activity to enable patient to perform ADL's. Speech Shelter Goals Freight Car Cleaner Goals Patient will improve memory and comprehension for increased safety awareness and independence. MET Comprehension: 6 Expression: 7 Social Interaction: 7 Problem Solvin Memory: 7 MIMI WHIPPLE Feb 07, 2018 14:17
== END 2018-02-07 12:00 | disposition home health service (06) | DRG 191 ==
PROVIDERS: ADMIT Physical Medicine & Rehabilitation; ATTEND Physical Medicine & Rehabilitation
DX: J44.0 Chronic obstructive pulmonary disease with (acute) lower respiratory infection (principal); R09.02 Hypoxemia; Z99.81 Dependence on supplemental oxygen; C90.00 Multiple myeloma not having achieved remission; I10 Essential (primary) hypertension; D72.819 Decreased white blood cell count, unspecified; I25.10 Atherosclerotic heart disease of native coronary artery without angina pectoris; E78.00 Pure hypercholesterolemia, unspecified; G47.33 Obstructive sleep apnea (adult) (pediatric); I48.2 Chronic atrial fibrillation; Z95.0 Presence of cardiac pacemaker
CPT/HCPCS: 36415; 82962; 85025; 94640; 94760; 94761

== ENCOUNTER 2018-06-24 14:18 | Outpatient (RCR) | payer MEDICARE ==
[2018-04-02 15:11] LABS: BASOPHILS # (AUTO) 0.2 10^3/uL (0.0-0.1); BASOPHILS % (AUTO) 3 % (0-10); EOSINOPHILS # (AUTO) 0.3 10^3/uL (0.0-0.3); EOSINOPHILS % (AUTO) 3 % (0-10); HEMATOCRIT 45 % (35-52); LYMPHOCYTES # (AUTO) 2.8 X 10^3 (1.0-4.0); LYMPHOCYTES % (AUTO) 36 % (12-44); MEAN CORPUSCULAR HEMOGLOBIN 31 PG (25-34); MEAN CORPUSCULAR HGB CONC 32 G/DL (32-36); MEAN CORPUSCULAR VOLUME 99 FL (80-99); MEAN PLATELET VOLUME 9.8 FL (7.4-10.4); MONOCYTES # (AUTO) 1.3 X 10^3 (0.0-1.0); MONOCYTES % (AUTO) 17 % (0-12); NEUTROPHILS # (AUTO) 3.1 X 10^3 (1.8-7.8); NEUTROPHILS % (AUTO) 41 % (42-75); PLATELET COUNT 301 10^3/uL (130-400); RED CELL DISTRIBUTION WIDTH 14.9 % (10.0-14.5); WHITE BLOOD COUNT 7.8 10^3/uL (4.3-11.0)
[2018-04-02 15:35] LABS: ALBUMIN 3.7 GM/DL (3.2-4.5); BILIRUBIN,TOTAL 0.5 MG/DL (0.1-1.0); CALCIUM 9.8 MG/DL (8.5-10.1); CREATININE SERUM 0.99 MG/DL (0.60-1.30); POTASSIUM 4.2 MMOL/L (3.6-5.0); TOTAL PROTEIN 7.1 GM/DL (6.4-8.2)
[2018-05-28 15:08] LABS: BASOPHILS % (AUTO) 0 % (0-10); EOSINOPHILS # (AUTO) 0.4 10^3/uL (0.0-0.3); EOSINOPHILS % (AUTO) 6 % (0-10); HEMATOCRIT 41 % (35-52); HEMOGLOBIN 13.2 G/DL (11.5-16.0); LYMPHOCYTES % (AUTO) 30 % (12-44); MEAN CORPUSCULAR HEMOGLOBIN 31 PG (25-34); MEAN CORPUSCULAR HGB CONC 32 G/DL (32-36); MEAN CORPUSCULAR VOLUME 98 FL (80-99); MEAN PLATELET VOLUME 10.6 FL (7.4-10.4); MONOCYTES # (AUTO) 0.9 X 10^3 (0.0-1.0); MONOCYTES % (AUTO) 13 % (0-12); NEUTROPHILS # (AUTO) 3.3 X 10^3 (1.8-7.8); NEUTROPHILS % (AUTO) 51 % (42-75); PLATELET COUNT 207 10^3/uL (130-400); RED CELL DISTRIBUTION WIDTH 15.1 % (10.0-14.5); WHITE BLOOD COUNT 6.5 10^3/uL (4.3-11.0)
[2018-05-28 15:25] LABS: ALBUMIN 3.5 GM/DL (3.2-4.5); BILIRUBIN,TOTAL 0.4 MG/DL (0.1-1.0); CALCIUM 9.4 MG/DL (8.5-10.1); CREATININE SERUM 0.96 MG/DL (0.60-1.30); POTASSIUM 4.1 MMOL/L (3.6-5.0); TOTAL PROTEIN 6.7 GM/DL (6.4-8.2)
[~2018-06-24 14:18] MED LIST changes: -AMLO5TAB7 PO; +AMLO5TAB9 PO; +LOSA100T57 PO; -LOSA100T8 PO; +LOSA50TA63 PO; -LOSA50TA7 PO; +METR-145 PO; -METR-197 PO; -RIVA15TA PO; +RIVA15TA2 PO; -SOTA80TA PO; +STL80T PO
[2018-06-24 14:38] LABS: BASOPHILS % (AUTO) 0 % (0-10); EOSINOPHILS # (AUTO) 0.3 10^3/uL (0.0-0.3); EOSINOPHILS % (AUTO) 4 % (0-10); HEMATOCRIT 44 % (35-52); LYMPHOCYTES # (AUTO) 1.9 X 10^3 (1.0-4.0); LYMPHOCYTES % (AUTO) 29 % (12-44); MEAN CORPUSCULAR HEMOGLOBIN 32 PG (25-34); MEAN CORPUSCULAR HGB CONC 32 G/DL (32-36); MEAN CORPUSCULAR VOLUME 98 FL (80-99); MEAN PLATELET VOLUME 10.6 FL (7.4-10.4); MONOCYTES # (AUTO) 0.8 X 10^3 (0.0-1.0); MONOCYTES % (AUTO) 11 % (0-12); NEUTROPHILS # (AUTO) 3.7 X 10^3 (1.8-7.8); NEUTROPHILS % (AUTO) 56 % (42-75); PLATELET COUNT 210 10^3/uL (130-400); RED CELL DISTRIBUTION WIDTH 15.4 % (10.0-14.5); WHITE BLOOD COUNT 6.7 10^3/uL (4.3-11.0)
[2018-06-24 14:55] LABS: ALBUMIN 3.7 GM/DL (3.2-4.5); BILIRUBIN,TOTAL 0.5 MG/DL (0.1-1.0); CALCIUM 9.8 MG/DL (8.5-10.1); CREATININE SERUM 1.09 MG/DL (0.60-1.30); POTASSIUM 4.3 MMOL/L (3.6-5.0); TOTAL PROTEIN 7.1 GM/DL (6.4-8.2)
== END 2018-07-01 | disposition home or self-care (01) ==
LOC: ONC 14:18
PROVIDERS: ATTEND Internal Medicine Hematology & Oncology
DX: C90.00 Multiple myeloma not having achieved remission (principal); I48.2 Chronic atrial fibrillation; I10 Essential (primary) hypertension; M19.011 Primary osteoarthritis, right shoulder; K21.9 Gastro-esophageal reflux disease without esophagitis; R19.7 Diarrhea, unspecified; F32.9 Major depressive disorder, single episode, unspecified; Z95.0 Presence of cardiac pacemaker; Z79.01 Long term (current) use of anticoagulants; Z92.3 Personal history of irradiation
CPT/HCPCS: 36415; 80053; 82784; 83883; 84155; 84165; 85025; 99213

== ENCOUNTER 2018-10-14 14:32 | Outpatient (RCR) | payer MEDICARE ==
[2018-07-22 15:03] LABS: BASOPHILS % (AUTO) 0 % (0-10); EOSINOPHILS # (AUTO) 0.3 10^3/uL (0.0-0.3); EOSINOPHILS % (AUTO) 4 % (0-10); HEMATOCRIT 43 % (35-52); HEMOGLOBIN 13.6 G/DL (11.5-16.0); LYMPHOCYTES # (AUTO) 1.8 X 10^3 (1.0-4.0); LYMPHOCYTES % (AUTO) 23 % (12-44); MEAN CORPUSCULAR HEMOGLOBIN 31 PG (25-34); MEAN CORPUSCULAR HGB CONC 32 G/DL (32-36); MEAN CORPUSCULAR VOLUME 99 FL (80-99); MEAN PLATELET VOLUME 10.6 FL (7.4-10.4); MONOCYTES % (AUTO) 13 % (0-12); NEUTROPHILS # (AUTO) 4.8 X 10^3 (1.8-7.8); NEUTROPHILS % (AUTO) 60 % (42-75); PLATELET COUNT 208 10^3/uL (130-400); RED CELL DISTRIBUTION WIDTH 14.6 % (10.0-14.5); WHITE BLOOD COUNT 7.9 10^3/uL (4.3-11.0)
[2018-07-22 15:26] LABS: ALBUMIN 3.6 GM/DL (3.2-4.5); BILIRUBIN,TOTAL 0.5 MG/DL (0.1-1.0); CALCIUM 9.5 MG/DL (8.5-10.1); CREATININE SERUM 1.1 MG/DL (0.60-1.30); POTASSIUM 4.1 MMOL/L (3.6-5.0); TOTAL PROTEIN 6.7 GM/DL (6.4-8.2)
[2018-08-19 14:57] LABS: BASOPHILS # (AUTO) 0.2 10^3/uL (0.0-0.1); BASOPHILS % (AUTO) 3 % (0-10); EOSINOPHILS # (AUTO) 0.2 10^3/uL (0.0-0.3); EOSINOPHILS % (AUTO) 3 % (0-10); HEMATOCRIT 43 % (35-52); HEMOGLOBIN 13.7 G/DL (11.5-16.0); LYMPHOCYTES % (AUTO) 36 % (12-44); MEAN CORPUSCULAR HEMOGLOBIN 31 PG (25-34); MEAN CORPUSCULAR HGB CONC 32 G/DL (32-36); MEAN CORPUSCULAR VOLUME 99 FL (80-99); MONOCYTES # (AUTO) 1.1 X 10^3 (0.0-1.0); MONOCYTES % (AUTO) 20 % (0-12); NEUTROPHILS # (AUTO) 2.2 X 10^3 (1.8-7.8); NEUTROPHILS % (AUTO) 39 % (42-75); PLATELET COUNT 275 10^3/uL (130-400); RED CELL DISTRIBUTION WIDTH 13.8 % (10.0-14.5); WHITE BLOOD COUNT 5.6 10^3/uL (4.3-11.0)
[2018-08-19 15:17] LABS: ALBUMIN 3.7 GM/DL (3.2-4.5); BILIRUBIN,TOTAL 0.4 MG/DL (0.1-1.0); CALCIUM 9.2 MG/DL (8.5-10.1); CREATININE SERUM 1.11 MG/DL (0.60-1.30); POTASSIUM 4.2 MMOL/L (3.6-5.0); TOTAL PROTEIN 6.9 GM/DL (6.4-8.2)
[2018-09-16 14:39] LABS: BASOPHILS # (AUTO) 0.2 10^3/uL (0.0-0.1); BASOPHILS % (AUTO) 3 % (0-10); EOSINOPHILS # (AUTO) 0.2 10^3/uL (0.0-0.3); EOSINOPHILS % (AUTO) 4 % (0-10); HEMATOCRIT 43 % (35-52); HEMOGLOBIN 14.2 G/DL (11.5-16.0); LYMPHOCYTES # (AUTO) 1.9 X 10^3 (1.0-4.0); LYMPHOCYTES % (AUTO) 37 % (12-44); MEAN CORPUSCULAR HEMOGLOBIN 32 PG (25-34); MEAN CORPUSCULAR HGB CONC 33 G/DL (32-36); MEAN CORPUSCULAR VOLUME 97 FL (80-99); MEAN PLATELET VOLUME 9.7 FL (7.4-10.4); MONOCYTES % (AUTO) 19 % (0-12); NEUTROPHILS # (AUTO) 1.9 X 10^3 (1.8-7.8); NEUTROPHILS % (AUTO) 37 % (42-75); PLATELET COUNT 251 10^3/uL (130-400); RED CELL DISTRIBUTION WIDTH 13.9 % (10.0-14.5); WHITE BLOOD COUNT 5.1 10^3/uL (4.3-11.0)
[2018-09-16 14:55] LABS: ALBUMIN 3.7 GM/DL (3.2-4.5); BILIRUBIN,TOTAL 0.4 MG/DL (0.1-1.0); CALCIUM 9.6 MG/DL (8.5-10.1); CREATININE SERUM 1.2 MG/DL (0.60-1.30); POTASSIUM 4.5 MMOL/L (3.6-5.0)
[~2018-10-14 14:32] MED LIST changes: -OMEP20CA12 PO; +OMEP20CA13 PO
[2018-10-14 14:45] LABS: BASOPHILS # (AUTO) 0.1 10^3/uL (0.0-0.1); BASOPHILS % (AUTO) 2 % (0-10); EOSINOPHILS # (AUTO) 0.2 10^3/uL (0.0-0.3); EOSINOPHILS % (AUTO) 3 % (0-10); HEMATOCRIT 44 % (35-52); LYMPHOCYTES # (AUTO) 2.4 X 10^3 (1.0-4.0); LYMPHOCYTES % (AUTO) 41 % (12-44); MEAN CORPUSCULAR HEMOGLOBIN 31 PG (25-34); MEAN CORPUSCULAR HGB CONC 32 G/DL (32-36); MEAN CORPUSCULAR VOLUME 98 FL (80-99); MEAN PLATELET VOLUME 9.5 FL (7.4-10.4); MONOCYTES % (AUTO) 17 % (0-12); NEUTROPHILS # (AUTO) 2.1 X 10^3 (1.8-7.8); NEUTROPHILS % (AUTO) 37 % (42-75); PLATELET COUNT 234 10^3/uL (130-400); RED CELL DISTRIBUTION WIDTH 14.5 % (10.0-14.5); WHITE BLOOD COUNT 5.7 10^3/uL (4.3-11.0)
[2018-10-14 15:08] LABS: ALBUMIN 3.7 GM/DL (3.2-4.5); BILIRUBIN,TOTAL 0.6 MG/DL (0.1-1.0); CALCIUM 9.6 MG/DL (8.5-10.1); CREATININE SERUM 1.13 MG/DL (0.60-1.30); POTASSIUM 4.7 MMOL/L (3.6-5.0)
== END 2018-10-20 | disposition home or self-care (01) ==
LOC: ONC 14:32
PROVIDERS: ATTEND Internal Medicine Hematology & Oncology
DX: C90.00 Multiple myeloma not having achieved remission (principal); I48.2 Chronic atrial fibrillation; I10 Essential (primary) hypertension; M19.011 Primary osteoarthritis, right shoulder; K21.9 Gastro-esophageal reflux disease without esophagitis; R19.7 Diarrhea, unspecified; F32.9 Major depressive disorder, single episode, unspecified; Z95.0 Presence of cardiac pacemaker; Z79.01 Long term (current) use of anticoagulants; Z92.3 Personal history of irradiation
CPT/HCPCS: 36415; 80053; 82784; 83883; 84155; 84165; 85025; 99213

== ENCOUNTER 2019-01-06 14:33 | Outpatient (RCR) | payer MEDICARE ==
[2018-11-11 14:42] LABS: BASOPHILS # (AUTO) 0.2 10^3/uL (0.0-0.1); BASOPHILS % (AUTO) 3 % (0-10); EOSINOPHILS # (AUTO) 0.1 10^3/uL (0.0-0.3); EOSINOPHILS % (AUTO) 3 % (0-10); HEMATOCRIT 41 % (35-52); HEMOGLOBIN 13.6 G/DL (11.5-16.0); LYMPHOCYTES # (AUTO) 2.1 X 10^3 (1.0-4.0); LYMPHOCYTES % (AUTO) 40 % (12-44); MEAN CORPUSCULAR HEMOGLOBIN 32 PG (25-34); MEAN CORPUSCULAR HGB CONC 33 G/DL (32-36); MEAN CORPUSCULAR VOLUME 96 FL (80-99); MEAN PLATELET VOLUME 9.3 FL (7.4-10.4); MONOCYTES # (AUTO) 0.9 X 10^3 (0.0-1.0); MONOCYTES % (AUTO) 17 % (0-12); NEUTROPHILS % (AUTO) 37 % (42-75); PLATELET COUNT 266 10^3/uL (130-400); RED CELL DISTRIBUTION WIDTH 14.9 % (10.0-14.5); WHITE BLOOD COUNT 5.3 10^3/uL (4.3-11.0)
[2018-11-11 15:06] LABS: ALBUMIN 3.8 GM/DL (3.2-4.5); BILIRUBIN,TOTAL 0.6 MG/DL (0.1-1.0); CALCIUM 9.1 MG/DL (8.5-10.1); POTASSIUM 4.5 MMOL/L (3.6-5.0); TOTAL PROTEIN 7.1 GM/DL (6.4-8.2)
[2019-01-06 14:51] LABS: BASOPHILS # (AUTO) 0.2 10^3/uL (0.0-0.1); BASOPHILS % (AUTO) 3 % (0-10); EOSINOPHILS # (AUTO) 0.2 10^3/uL (0.0-0.3); EOSINOPHILS % (AUTO) 4 % (0-10); HEMATOCRIT 44 % (35-52); HEMOGLOBIN 14.1 G/DL (11.5-16.0); LYMPHOCYTES # (AUTO) 2.2 X 10^3 (1.0-4.0); LYMPHOCYTES % (AUTO) 37 % (12-44); MEAN CORPUSCULAR HEMOGLOBIN 31 PG (25-34); MEAN CORPUSCULAR HGB CONC 32 G/DL (32-36); MEAN CORPUSCULAR VOLUME 98 FL (80-99); MEAN PLATELET VOLUME 9.1 FL (7.4-10.4); MONOCYTES % (AUTO) 17 % (0-12); NEUTROPHILS # (AUTO) 2.3 X 10^3 (1.8-7.8); NEUTROPHILS % (AUTO) 39 % (42-75); PLATELET COUNT 292 10^3/uL (130-400); RED CELL DISTRIBUTION WIDTH 15.4 % (10.0-14.5)
[2019-01-06 15:11] LABS: ALBUMIN 3.9 GM/DL (3.2-4.5); BILIRUBIN,TOTAL 0.5 MG/DL (0.1-1.0); CALCIUM 9.5 MG/DL (8.5-10.1); CREATININE SERUM 0.99 MG/DL (0.60-1.30); POTASSIUM 4.2 MMOL/L (3.6-5.0); TOTAL PROTEIN 7.2 GM/DL (6.4-8.2)
== END 2019-02-09 | disposition home or self-care (01) ==
LOC: ONC 14:33
PROVIDERS: ATTEND Internal Medicine Hematology & Oncology
DX: C90.00 Multiple myeloma not having achieved remission (principal); I10 Essential (primary) hypertension; M19.011 Primary osteoarthritis, right shoulder; K21.9 Gastro-esophageal reflux disease without esophagitis; R19.7 Diarrhea, unspecified; F32.9 Major depressive disorder, single episode, unspecified; Z95.0 Presence of cardiac pacemaker; Z79.01 Long term (current) use of anticoagulants; Z92.3 Personal history of irradiation
CPT/HCPCS: 36415; 80053; 82784; 83883; 85025; 99213

== ENCOUNTER → 2019-01-06 | Outpatient (CLI) | payer MEDICARE | LOC: LAB 14:49 | PROVIDERS: ATTEND Internal Medicine | DX: E03.8 Other specified hypothyroidism (principal) | CPT/HCPCS: 36415; 84443 ==

== ENCOUNTER 2019-04-28 14:34 | Outpatient (RCR) | payer MEDICARE ==
[2019-02-24 14:56] LABS: HEMATOCRIT 44 % (35-52); HEMOGLOBIN 13.6 G/DL (11.5-16.0); MEAN CORPUSCULAR HEMOGLOBIN 31 PG (25-34); MEAN CORPUSCULAR HGB CONC 31 G/DL (32-36); MEAN CORPUSCULAR VOLUME 101 FL (80-99); PLATELET COUNT 227 10^3/uL (130-400); RED CELL DISTRIBUTION WIDTH 15.6 % (10.0-14.5); WHITE BLOOD COUNT 6.7 10^3/uL (4.3-11.0)
[2019-02-24 14:57] LABS: BASOPHILS % (AUTO) 0 % (0-10); EOSINOPHILS # (AUTO) 0.3 10^3/uL (0.0-0.3); EOSINOPHILS % (AUTO) 5 % (0-10); LYMPHOCYTES % (AUTO) 30 % (12-44); MEAN PLATELET VOLUME 9.9 FL (7.4-10.4); MONOCYTES # (AUTO) 0.7 X 10^3 (0.0-1.0); MONOCYTES % (AUTO) 10 % (0-12); NEUTROPHILS # (AUTO) 3.7 X 10^3 (1.8-7.8); NEUTROPHILS % (AUTO) 55 % (42-75)
[2019-02-24 15:17] LABS: ALBUMIN 3.8 GM/DL (3.2-4.5); BILIRUBIN,TOTAL 0.4 MG/DL (0.1-1.0); CALCIUM 9.5 MG/DL (8.5-10.1); CREATININE SERUM 0.96 MG/DL (0.60-1.30); POTASSIUM 4.1 MMOL/L (3.6-5.0); TOTAL PROTEIN 6.9 GM/DL (6.4-8.2)
[~2019-04-28 14:34] MED LIST changes: +ACHYD1T PO; -HYDR-3820 PO; -MAGN400T6 PO; +MAGN400T8 PO; -MONT10TA24 PO; +MONT10TA26 PO; -OMEP20CA13 PO; +OMEP20CA18 PO; -TRAM50TA2 PO; +TRM50T PO
[2019-04-28 14:50] LABS: BASOPHILS # (AUTO) 0.1 10^3/uL (0.0-0.1); BASOPHILS % (AUTO) 1 % (0-10); EOSINOPHILS # (AUTO) 0.3 10^3/uL (0.0-0.3); EOSINOPHILS % (AUTO) 3 % (0-10); HEMATOCRIT 45 % (35-52); HEMOGLOBIN 14.2 G/DL (11.5-16.0); LYMPHOCYTES % (AUTO) 25 % (12-44); MEAN CORPUSCULAR HEMOGLOBIN 32 PG (25-34); MEAN CORPUSCULAR HGB CONC 32 G/DL (32-36); MEAN CORPUSCULAR VOLUME 99 FL (80-99); MEAN PLATELET VOLUME 9.6 FL (7.4-10.4); MONOCYTES % (AUTO) 13 % (0-12); NEUTROPHILS # (AUTO) 4.8 X 10^3 (1.8-7.8); NEUTROPHILS % (AUTO) 59 % (42-75); PLATELET COUNT 263 10^3/uL (130-400); RED CELL DISTRIBUTION WIDTH 13.6 % (10.0-14.5); WHITE BLOOD COUNT 8.2 10^3/uL (4.3-11.0)
[2019-04-28 15:07] LABS: ALBUMIN 3.9 GM/DL (3.2-4.5); BILIRUBIN,TOTAL 0.5 MG/DL (0.1-1.0); CALCIUM 9.6 MG/DL (8.5-10.1); CREATININE SERUM 1.07 MG/DL (0.60-1.30); POTASSIUM 4.5 MMOL/L (3.6-5.0); TOTAL PROTEIN 7.2 GM/DL (6.4-8.2)
== END 2019-05-25 | disposition home or self-care (01) ==
LOC: ONC 14:34
PROVIDERS: ATTEND Internal Medicine Hematology & Oncology
DX: C90.00 Multiple myeloma not having achieved remission (principal); I10 Essential (primary) hypertension; M19.011 Primary osteoarthritis, right shoulder; K21.9 Gastro-esophageal reflux disease without esophagitis; R19.7 Diarrhea, unspecified; F32.9 Major depressive disorder, single episode, unspecified; Z95.0 Presence of cardiac pacemaker; Z79.01 Long term (current) use of anticoagulants; Z92.3 Personal history of irradiation
CPT/HCPCS: 80053; 82784; 83883; 85025; 99213

== ENCOUNTER 2019-08-20 14:13 | Outpatient (RCR) | payer MEDICARE ==
[2019-06-24 13:58] LABS: BASOPHILS % (AUTO) 1 % (0-10); EOSINOPHILS # (AUTO) 0.2 10^3/uL (0.0-0.3); EOSINOPHILS % (AUTO) 2 % (0-10); HEMATOCRIT 46 % (35-52); HEMOGLOBIN 14.8 G/DL (11.5-16.0); LYMPHOCYTES # (AUTO) 1.6 X 10^3 (1.0-4.0); LYMPHOCYTES % (AUTO) 23 % (12-44); MEAN CORPUSCULAR HEMOGLOBIN 31 PG (25-34); MEAN CORPUSCULAR HGB CONC 32 G/DL (32-36); MEAN CORPUSCULAR VOLUME 98 FL (80-99); MEAN PLATELET VOLUME 9.8 FL (7.4-10.4); MONOCYTES # (AUTO) 0.8 X 10^3 (0.0-1.0); MONOCYTES % (AUTO) 11 % (0-12); NEUTROPHILS # (AUTO) 4.3 X 10^3 (1.8-7.8); NEUTROPHILS % (AUTO) 63 % (42-75); PLATELET COUNT 207 10^3/uL (130-400); RED CELL DISTRIBUTION WIDTH 14.1 % (10.0-14.5); WHITE BLOOD COUNT 6.9 10^3/uL (4.3-11.0)
[2019-06-24 14:18] LABS: ALBUMIN 3.7 GM/DL (3.2-4.5); BILIRUBIN,TOTAL 0.5 MG/DL (0.1-1.0); CALCIUM 9.3 MG/DL (8.5-10.1); CREATININE SERUM 1.15 MG/DL (0.60-1.30); POTASSIUM 4.2 MMOL/L (3.6-5.0); TOTAL PROTEIN 7.2 GM/DL (6.4-8.2)
[2019-07-21 14:51] LABS: BASOPHILS % (AUTO) 1 % (0-10); EOSINOPHILS # (AUTO) 0.2 10^3/uL (0.0-0.3); EOSINOPHILS % (AUTO) 3 % (0-10); HEMATOCRIT 48 % (35-52); HEMOGLOBIN 15.4 G/DL (11.5-16.0); LYMPHOCYTES # (AUTO) 1.8 X 10^3 (1.0-4.0); LYMPHOCYTES % (AUTO) 25 % (12-44); MEAN CORPUSCULAR HEMOGLOBIN 32 PG (25-34); MEAN CORPUSCULAR HGB CONC 32 G/DL (32-36); MEAN CORPUSCULAR VOLUME 99 FL (80-99); MEAN PLATELET VOLUME 10.1 FL (7.4-10.4); MONOCYTES % (AUTO) 13 % (0-12); NEUTROPHILS # (AUTO) 4.4 X 10^3 (1.8-7.8); NEUTROPHILS % (AUTO) 59 % (42-75); PLATELET COUNT 248 10^3/uL (130-400); RED CELL DISTRIBUTION WIDTH 14.8 % (10.0-14.5); WHITE BLOOD COUNT 7.5 10^3/uL (4.3-11.0)
[2019-07-21 15:30] LABS: ALBUMIN 3.7 GM/DL (3.2-4.5); BILIRUBIN,TOTAL 0.6 MG/DL (0.1-1.0); CALCIUM 9.5 MG/DL (8.5-10.1); CREATININE SERUM 1.25 MG/DL (0.60-1.30); POTASSIUM 4.5 MMOL/L (3.6-5.0); TOTAL PROTEIN 7.3 GM/DL (6.4-8.2)
[2019-08-20 14:33] LABS: BASOPHILS % (AUTO) 0 % (0-10); EOSINOPHILS # (AUTO) 0.2 10^3/uL (0.0-0.3); EOSINOPHILS % (AUTO) 4 % (0-10); HEMATOCRIT 45 % (35-52); HEMOGLOBIN 14.9 G/DL (11.5-16.0); LYMPHOCYTES # (AUTO) 1.7 X 10^3 (1.0-4.0); LYMPHOCYTES % (AUTO) 26 % (12-44); MEAN CORPUSCULAR HEMOGLOBIN 33 PG (25-34); MEAN CORPUSCULAR HGB CONC 33 G/DL (32-36); MEAN CORPUSCULAR VOLUME 99 FL (80-99); MEAN PLATELET VOLUME 9.7 FL (7.4-10.4); MONOCYTES # (AUTO) 0.8 X 10^3 (0.0-1.0); MONOCYTES % (AUTO) 12 % (0-12); NEUTROPHILS # (AUTO) 3.8 X 10^3 (1.8-7.8); NEUTROPHILS % (AUTO) 59 % (42-75); PLATELET COUNT 217 10^3/uL (130-400); RED CELL DISTRIBUTION WIDTH 14.3 % (10.0-14.5); WHITE BLOOD COUNT 6.5 10^3/uL (4.3-11.0)
[2019-08-20 14:51] LABS: ALBUMIN 3.7 GM/DL (3.2-4.5); BILIRUBIN,TOTAL 0.4 MG/DL (0.1-1.0); CALCIUM 9.4 MG/DL (8.5-10.1); CREATININE SERUM 1.07 MG/DL (0.60-1.30); POTASSIUM 4.3 MMOL/L (3.6-5.0); TOTAL PROTEIN 7.2 GM/DL (6.4-8.2)
== END 2019-09-22 | disposition home or self-care (01) ==
LOC: ONC 14:13
PROVIDERS: ATTEND Internal Medicine Hematology & Oncology
DX: C90.00 Multiple myeloma not having achieved remission (principal); I10 Essential (primary) hypertension; M19.011 Primary osteoarthritis, right shoulder; K21.9 Gastro-esophageal reflux disease without esophagitis; F32.9 Major depressive disorder, single episode, unspecified; M89.9 Disorder of bone, unspecified; R19.7 Diarrhea, unspecified; Z95.0 Presence of cardiac pacemaker; Z79.01 Long term (current) use of anticoagulants; Z92.3 Personal history of irradiation
CPT/HCPCS: 80053; 82784; 83883; 85025; 99213

== ENCOUNTER 2020-01-26 13:45 | Outpatient (RCR) | payer MEDICARE ==
[2019-10-29 15:04] LABS: BASOPHILS % (AUTO) 0 % (0-10); EOSINOPHILS # (AUTO) 0.3 10^3/uL (0.0-0.3); EOSINOPHILS % (AUTO) 3 % (0-10); HEMATOCRIT 46 % (35-52); HEMOGLOBIN 15.1 G/DL (11.5-16.0); LYMPHOCYTES % (AUTO) 25 % (12-44); MEAN CORPUSCULAR HEMOGLOBIN 33 PG (25-34); MEAN CORPUSCULAR HGB CONC 33 G/DL (32-36); MEAN CORPUSCULAR VOLUME 99 FL (80-99); MEAN PLATELET VOLUME 9.8 FL (7.4-10.4); MONOCYTES # (AUTO) 0.9 X 10^3 (0.0-1.0); MONOCYTES % (AUTO) 12 % (0-12); NEUTROPHILS # (AUTO) 4.7 X 10^3 (1.8-7.8); NEUTROPHILS % (AUTO) 60 % (42-75); PLATELET COUNT 217 10^3/uL (130-400); WHITE BLOOD COUNT 7.8 10^3/uL (4.3-11.0)
[2019-10-29 15:23] LABS: ALBUMIN 3.8 GM/DL (3.2-4.5); BILIRUBIN,TOTAL 0.4 MG/DL (0.1-1.0); CALCIUM 9.1 MG/DL (8.5-10.1); CREATININE SERUM 1.13 MG/DL (0.60-1.30); POTASSIUM 4.3 MMOL/L (3.6-5.0); TOTAL PROTEIN 7.4 GM/DL (6.4-8.2)
[2019-11-19 14:50] LABS: BASOPHILS # (AUTO) 0.1 10^3/uL (0.0-0.1); BASOPHILS % (AUTO) 1 % (0-10); EOSINOPHILS # (AUTO) 0.2 10^3/uL (0.0-0.3); EOSINOPHILS % (AUTO) 2 % (0-10); HEMATOCRIT 48 % (35-52); HEMOGLOBIN 15.6 g/dL (11.5-16.0); LYMPHOCYTES # (AUTO) 1.6 10^3/uL (1.0-4.0); LYMPHOCYTES % (AUTO) 22 % (12-44); MEAN CORPUSCULAR HEMOGLOBIN 33 pg (25-34); MEAN CORPUSCULAR HGB CONC 33 g/dL (32-36); MEAN CORPUSCULAR VOLUME 101 fL (80-99); MEAN PLATELET VOLUME 9.9 fL (9.0-12.2); MONOCYTES # (AUTO) 0.8 10^3/uL (0.0-1.0); MONOCYTES % (AUTO) 10 % (0-12); NEUTROPHILS # (AUTO) 4.7 10^3/uL (1.8-7.8); NEUTROPHILS % (AUTO) 64 % (42-75); PLATELET COUNT 227 10^3/uL (130-400); WHITE BLOOD COUNT 7.4 10^3/uL (4.3-11.0)
[2019-11-19 15:11] LABS: ALBUMIN 3.9 GM/DL (3.2-4.5); BILIRUBIN,TOTAL 0.5 MG/DL (0.1-1.0); CALCIUM 9.7 MG/DL (8.5-10.1); CREATININE SERUM 1.18 MG/DL (0.60-1.30); POTASSIUM 4.3 MMOL/L (3.6-5.0); TOTAL PROTEIN 7.5 GM/DL (6.4-8.2)
[2019-12-17 14:15] LABS: BASOPHILS # (AUTO) 0.1 10^3/uL (0.0-0.1); BASOPHILS % (AUTO) 1 % (0-10); EOSINOPHILS # (AUTO) 0.2 10^3/uL (0.0-0.3); EOSINOPHILS % (AUTO) 3 % (0-10); HEMATOCRIT 48 % (35-52); HEMOGLOBIN 15.6 g/dL (11.5-16.0); LYMPHOCYTES # (AUTO) 1.6 10^3/uL (1.0-4.0); LYMPHOCYTES % (AUTO) 22 % (12-44); MEAN CORPUSCULAR HEMOGLOBIN 33 pg (25-34); MEAN CORPUSCULAR HGB CONC 33 g/dL (32-36); MEAN CORPUSCULAR VOLUME 102 fL (80-99); MEAN PLATELET VOLUME 9.9 fL (9.0-12.2); MONOCYTES # (AUTO) 0.8 10^3/uL (0.0-1.0); MONOCYTES % (AUTO) 11 % (0-12); NEUTROPHILS # (AUTO) 4.5 10^3/uL (1.8-7.8); NEUTROPHILS % (AUTO) 62 % (42-75); PLATELET COUNT 212 10^3/uL (130-400); WHITE BLOOD COUNT 7.3 10^3/uL (4.3-11.0)
[2019-12-17 14:33] LABS: ALBUMIN 3.8 GM/DL (3.2-4.5); BILIRUBIN,TOTAL 0.5 MG/DL (0.1-1.0); CALCIUM 9.3 MG/DL (8.5-10.1); CREATININE SERUM 1.15 MG/DL (0.60-1.30); POTASSIUM 4.4 MMOL/L (3.6-5.0); TOTAL PROTEIN 7.4 GM/DL (6.4-8.2)
[~2020-01-26 13:45] MED LIST changes: +AMLO-250 PO; -AMLO5TAB9 PO; +ASCO100024 PO; -ASCO10006 PO; -MONT10TA26 PO; +MONT10TA97 PO
[2020-01-26 14:03] LABS: BASOPHILS # (AUTO) 0.2 10^3/uL (0.0-0.1); BASOPHILS % (AUTO) 3 % (0-10); EOSINOPHILS # (AUTO) 0.1 10^3/uL (0.0-0.3); EOSINOPHILS % (AUTO) 2 % (0-10); HEMATOCRIT 44 % (35-52); HEMOGLOBIN 13.9 g/dL (11.5-16.0); LYMPHOCYTES # (AUTO) 1.9 10^3/uL (1.0-4.0); LYMPHOCYTES % (AUTO) 28 % (12-44); MEAN CORPUSCULAR HEMOGLOBIN 33 pg (25-34); MEAN CORPUSCULAR HGB CONC 32 g/dL (32-36); MEAN CORPUSCULAR VOLUME 104 fL (80-99); MEAN PLATELET VOLUME 9.5 fL (9.0-12.2); MONOCYTES # (AUTO) 1.2 10^3/uL (0.0-1.0); MONOCYTES % (AUTO) 18 % (0-12); NEUTROPHILS # (AUTO) 3.3 10^3/uL (1.8-7.8); NEUTROPHILS % (AUTO) 49 % (42-75); PLATELET COUNT 276 10^3/uL (130-400); WHITE BLOOD COUNT 6.7 10^3/uL (4.3-11.0)
[2020-01-26 14:29] LABS: ALBUMIN 3.6 GM/DL (3.2-4.5); BILIRUBIN,TOTAL 0.4 MG/DL (0.1-1.0); CALCIUM 8.8 MG/DL (8.5-10.1); CREATININE SERUM 1.06 MG/DL (0.60-1.30); POTASSIUM 4.5 MMOL/L (3.6-5.0); TOTAL PROTEIN 6.9 GM/DL (6.4-8.2)
== END 2020-01-27 | disposition home or self-care (01) ==
LOC: ONC 13:45
PROVIDERS: ATTEND Internal Medicine Hematology & Oncology
DX: C90.00 Multiple myeloma not having achieved remission (principal); I10 Essential (primary) hypertension; M19.011 Primary osteoarthritis, right shoulder; K21.9 Gastro-esophageal reflux disease without esophagitis; F32.9 Major depressive disorder, single episode, unspecified; M89.9 Disorder of bone, unspecified; R19.7 Diarrhea, unspecified; B02.9 Zoster without complications; I48.20 Chronic atrial fibrillation, unspecified; M84.451A Pathological fracture, right femur, initial encounter for fracture; G62.9 Polyneuropathy, unspecified; E87.1 Hypo-osmolality and hyponatremia; G47.30 Sleep apnea, unspecified; Z96.652 Presence of left artificial knee joint; Z95.0 Presence of cardiac pacemaker; Z79.01 Long term (current) use of anticoagulants; Z92.3 Personal history of irradiation; Z79.899 Other long term (current) drug therapy
CPT/HCPCS: 80053; 82784 ×3; 83883; 85025; G0463; 99213

== ENCOUNTER 2020-02-10 14:03 | Outpatient (RCR) | payer MEDICARE ==
[2020-02-23 11:44] LABS: BASOPHILS # (AUTO) 0.2 10^3/uL (0.0-0.1); BASOPHILS % (AUTO) 3 % (0-10); EOSINOPHILS # (AUTO) 0.2 10^3/uL (0.0-0.3); EOSINOPHILS % (AUTO) 3 % (0-10); HEMATOCRIT 45 % (35-52); HEMOGLOBIN 14.7 g/dL (11.5-16.0); LYMPHOCYTES # (AUTO) 1.8 10^3/uL (1.0-4.0); LYMPHOCYTES % (AUTO) 31 % (12-44); MEAN CORPUSCULAR HEMOGLOBIN 33 pg (25-34); MEAN CORPUSCULAR HGB CONC 33 g/dL (32-36); MEAN CORPUSCULAR VOLUME 102 fL (80-99); MEAN PLATELET VOLUME 9.4 fL (9.0-12.2); MONOCYTES % (AUTO) 18 % (0-12); NEUTROPHILS # (AUTO) 2.6 10^3/uL (1.8-7.8); NEUTROPHILS % (AUTO) 45 % (42-75); PLATELET COUNT 336 10^3/uL (130-400); WHITE BLOOD COUNT 5.9 10^3/uL (4.3-11.0)
[2020-02-23 12:04] LABS: ALBUMIN 3.8 GM/DL (3.2-4.5); BILIRUBIN,TOTAL 0.3 MG/DL (0.1-1.0); CALCIUM 10.1 MG/DL (8.5-10.1); CREATININE SERUM 1.12 MG/DL (0.60-1.30); POTASSIUM 4.6 MMOL/L (3.6-5.0); TOTAL PROTEIN 7.5 GM/DL (6.4-8.2)
== END 2020-02-23 09:33 | disposition home or self-care (01) ==
LOC: ONC 14:03
PROVIDERS: ATTEND Internal Medicine Hematology & Oncology
DX: C90.00 Multiple myeloma not having achieved remission (principal); I10 Essential (primary) hypertension; M19.011 Primary osteoarthritis, right shoulder; K21.9 Gastro-esophageal reflux disease without esophagitis; F32.9 Major depressive disorder, single episode, unspecified; M89.9 Disorder of bone, unspecified; R19.7 Diarrhea, unspecified; B02.9 Zoster without complications; I48.20 Chronic atrial fibrillation, unspecified; M84.451A Pathological fracture, right femur, initial encounter for fracture; G62.9 Polyneuropathy, unspecified; E87.1 Hypo-osmolality and hyponatremia; G47.30 Sleep apnea, unspecified; Z96.652 Presence of left artificial knee joint; Z95.0 Presence of cardiac pacemaker; Z79.01 Long term (current) use of anticoagulants; Z92.3 Personal history of irradiation; Z79.899 Other long term (current) drug therapy
CPT/HCPCS: 80053; 82784 ×3; 83883; 85025; G0463; 99213

== ENCOUNTER 2020-04-26 14:21 | Outpatient (RCR) | payer MEDICARE ==
[2020-03-22 14:41] LABS: BASOPHILS # (AUTO) 0.1 10^3/uL (0.0-0.1); BASOPHILS % (AUTO) 1 % (0-10); EOSINOPHILS # (AUTO) 0.4 10^3/uL (0.0-0.3); EOSINOPHILS % (AUTO) 5 % (0-10); HEMATOCRIT 45 % (35-52); HEMOGLOBIN 14.1 g/dL (11.5-16.0); LYMPHOCYTES # (AUTO) 2.2 10^3/uL (1.0-4.0); LYMPHOCYTES % (AUTO) 28 % (12-44); MEAN CORPUSCULAR HEMOGLOBIN 32 pg (25-34); MEAN CORPUSCULAR HGB CONC 31 g/dL (32-36); MEAN CORPUSCULAR VOLUME 104 fL (80-99); MONOCYTES # (AUTO) 0.7 10^3/uL (0.0-1.0); MONOCYTES % (AUTO) 9 % (0-12); NEUTROPHILS # (AUTO) 4.3 10^3/uL (1.8-7.8); NEUTROPHILS % (AUTO) 56 % (42-75); PLATELET COUNT 243 10^3/uL (130-400); WHITE BLOOD COUNT 7.7 10^3/uL (4.3-11.0)
[2020-03-22 15:05] LABS: ALBUMIN 3.6 GM/DL (3.2-4.5); BILIRUBIN,TOTAL 0.5 MG/DL (0.1-1.0); CALCIUM 9.5 MG/DL (8.5-10.1); CREATININE SERUM 1.04 MG/DL (0.60-1.30); POTASSIUM 3.7 MMOL/L (3.6-5.0); TOTAL PROTEIN 7.1 GM/DL (6.4-8.2)
[~2020-04-26 14:21] MED LIST changes: +MONT10TA32 PO; -MONT10TA97 PO
[2020-04-26 14:36] LABS: BASOPHILS % (AUTO) 1 % (0-10); EOSINOPHILS # (AUTO) 0.3 10^3/uL (0.0-0.3); EOSINOPHILS % (AUTO) 4 % (0-10); HEMATOCRIT 44 % (35-52); LYMPHOCYTES # (AUTO) 1.7 10^3/uL (1.0-4.0); LYMPHOCYTES % (AUTO) 22 % (12-44); MEAN CORPUSCULAR HEMOGLOBIN 33 pg (25-34); MEAN CORPUSCULAR HGB CONC 32 g/dL (32-36); MEAN CORPUSCULAR VOLUME 102 fL (80-99); MEAN PLATELET VOLUME 9.9 fL (9.0-12.2); MONOCYTES # (AUTO) 0.9 10^3/uL (0.0-1.0); MONOCYTES % (AUTO) 12 % (0-12); NEUTROPHILS # (AUTO) 4.9 10^3/uL (1.8-7.8); NEUTROPHILS % (AUTO) 61 % (42-75); PLATELET COUNT 256 10^3/uL (130-400); WHITE BLOOD COUNT 7.9 10^3/uL (4.3-11.0)
[2020-04-26 14:56] LABS: ALBUMIN 3.8 GM/DL (3.2-4.5); BILIRUBIN,TOTAL 0.4 MG/DL (0.1-1.0); CALCIUM 9.4 MG/DL (8.5-10.1); CREATININE SERUM 1.21 MG/DL (0.60-1.30); POTASSIUM 4.1 MMOL/L (3.6-5.0); TOTAL PROTEIN 7.3 GM/DL (6.4-8.2)
== END 2020-05-23 | disposition home or self-care (01) ==
LOC: ONC 14:21
PROVIDERS: ATTEND Internal Medicine Hematology & Oncology
DX: C90.00 Multiple myeloma not having achieved remission (principal); I10 Essential (primary) hypertension; M19.011 Primary osteoarthritis, right shoulder; K21.9 Gastro-esophageal reflux disease without esophagitis; F32.9 Major depressive disorder, single episode, unspecified; M89.9 Disorder of bone, unspecified; R19.7 Diarrhea, unspecified; B02.9 Zoster without complications; I48.20 Chronic atrial fibrillation, unspecified; M84.451A Pathological fracture, right femur, initial encounter for fracture; G62.9 Polyneuropathy, unspecified; E87.1 Hypo-osmolality and hyponatremia; G47.30 Sleep apnea, unspecified; I48.91 Unspecified atrial fibrillation; Z96.652 Presence of left artificial knee joint; Z95.0 Presence of cardiac pacemaker; Z79.01 Long term (current) use of anticoagulants; Z92.3 Personal history of irradiation; Z79.899 Other long term (current) drug therapy
CPT/HCPCS: 80053; 82784; 83883; 85025; 99213

== ENCOUNTER → 2020-07-29 | Outpatient (CLI) | payer MEDICARE ==
[~2020-07-29] MED LIST changes: -ACYC400T PO; +ACYC400T21 PO
--- NOTE | 2020-07-30 12:42 | Diagnostic Imaging Report ---
PROCEDURE: CT pelvis without contrast. TECHNIQUE: Multiple contiguous axial images were obtained through the pelvis without the use of intravenous contrast. Sagittal and coronal reformations were performed. Auto Exposure Controls were utilized during the CT exam to meet ALARA standards for radiation dose reduction. INDICATION: Right hip pain COMPARISON: 02/17/2016 FINDINGS: Punctate diffuse lucencies are again identified throughout all of the osseous structures, which again may relate to osseous demineralization, though an underlying infiltrative process could appear similar. Lucent lesion within the posterior aspect of the right femoral head with thin circumscribed margins is again identified. This measures 2.1 x 1.9 x 1.6 cm, when previously it measured 2.0 x 1.6 x 1.4 cm. Therefore, this has very minimally increased in size since prior imaging in 2016. Additionally, lucent lesion within the right greater trochanter is again identified. This measures 3.8 x 3.1 x 2.9 cm, when previously this measured 3.8 x 2.3 x 2.6 cm, therefore, this is relatively similar to the prior examination. However, there has been interval healing of previously noted pathologic fracture at this location noted on prior exam. Focal lucency within the right aspect of the sacrum is present measuring up to 3.9 cm, relatively similar to prior examination when it measured 4.1 cm. No new focal lucency is seen. Mild superior endplate concavity of L4 is noted, which is new since 2017 bone survey. No new additional fractures. Degenerative changes of the sacroiliac joints with associated vacuum phenomenon. Degenerative changes in the pubic symphysis. Mild degenerative changes of the bilateral hips without collapse of the femoral heads. Background vascular calcifications. Colonic diverticulosis. Small fat-containing umbilical hernia. IMPRESSION: Focal lucent lesions within the right femur and right sacrum are again identified. These appear relatively similar to the prior examination of 2016, with one appearing minimally smaller by a few millimeters and another appearing minimally larger by a few millimeters. Diffuse lucent appearance of the osseous structures, which may relate to osseous demineralization, though a diffuse infiltrative process such as leukemia would be an additional consideration. New mild superior endplate concavity and compression of L4, which is new since 2017, though exact chronicity is uncertain. Recommend correlation for focal pain at this location. If further evaluation is desired, MRI of the lumbar spine could be obtained. Mild scattered degenerative changes. Additional findings as above. Dictated by: Dictated on workstation # [id number]
== END ==
LOC: RAD 14:15
PROVIDERS: ATTEND Internal Medicine Hematology & Oncology
DX: M16.0 Bilateral primary osteoarthritis of hip (principal); M47.816 Spondylosis without myelopathy or radiculopathy, lumbar region; M43.8X6 Other specified deforming dorsopathies, lumbar region; K57.30 Diverticulosis of large intestine without perforation or abscess without bleeding; K42.9 Umbilical hernia without obstruction or gangrene; R93.7 Abnormal findings on diagnostic imaging of other parts of musculoskeletal system
CPT/HCPCS: 72192

== ENCOUNTER 2020-08-30 14:44 | Outpatient (RCR) | payer MEDICARE ==
[2020-06-14 15:13] LABS: BASOPHILS % (AUTO) 0 % (0-10); EOSINOPHILS # (AUTO) 0.3 10^3/uL (0.0-0.3); EOSINOPHILS % (AUTO) 4 % (0-10); HEMATOCRIT 46 % (35-52); HEMOGLOBIN 14.1 g/dL (11.5-16.0); LYMPHOCYTES # (AUTO) 2.1 X 10^3 (1.0-4.0); LYMPHOCYTES % (AUTO) 29 % (12-44); MEAN CORPUSCULAR HEMOGLOBIN 32 pg (25-34); MEAN CORPUSCULAR HGB CONC 31 g/dL (32-36); MEAN CORPUSCULAR VOLUME 103 fL (80-99); MEAN PLATELET VOLUME 10.1 fL (9.0-12.2); MONOCYTES # (AUTO) 0.9 X 10^3 (0.0-1.0); MONOCYTES % (AUTO) 12 % (0-12); NEUTROPHILS % (AUTO) 54 % (42-75); PLATELET COUNT 221 10^3/uL (130-400); WHITE BLOOD COUNT 7.4 10^3/uL (4.3-11.0)
[2020-06-14 15:22] LABS: ALBUMIN 3.7 GM/DL (3.2-4.5); BILIRUBIN,TOTAL 0.4 MG/DL (0.1-1.0); CALCIUM 9.7 MG/DL (8.5-10.1); CREATININE SERUM 1.08 MG/DL (0.60-1.30); POTASSIUM 4.2 MMOL/L (3.6-5.0); TOTAL PROTEIN 7.3 GM/DL (6.4-8.2)
[2020-08-02 14:30] LABS: BASOPHILS # (AUTO) 0.1 10^3/uL (0.0-0.1); BASOPHILS % (AUTO) 1 % (0-10); EOSINOPHILS # (AUTO) 0.2 10^3/uL (0.0-0.3); EOSINOPHILS % (AUTO) 2 % (0-10); HEMATOCRIT 46 % (35-52); HEMOGLOBIN 15.1 g/dL (11.5-16.0); LYMPHOCYTES % (AUTO) 25 % (12-44); MEAN CORPUSCULAR HEMOGLOBIN 33 pg (25-34); MEAN CORPUSCULAR HGB CONC 33 g/dL (32-36); MEAN CORPUSCULAR VOLUME 99 fL (80-99); MEAN PLATELET VOLUME 10.1 fL (9.0-12.2); MONOCYTES # (AUTO) 0.9 10^3/uL (0.0-1.0); MONOCYTES % (AUTO) 11 % (0-12); NEUTROPHILS # (AUTO) 4.9 10^3/uL (1.8-7.8); NEUTROPHILS % (AUTO) 61 % (42-75); PLATELET COUNT 228 10^3/uL (130-400); WHITE BLOOD COUNT 8.1 10^3/uL (4.3-11.0)
[2020-08-02 14:57] LABS: ALBUMIN 3.9 GM/DL (3.2-4.5); BILIRUBIN,TOTAL 0.6 MG/DL (0.1-1.0); CREATININE SERUM 1.09 MG/DL (0.60-1.30); POTASSIUM 3.9 MMOL/L (3.6-5.0); TOTAL PROTEIN 7.7 GM/DL (6.4-8.2)
[~2020-08-30 14:44] MED LIST changes: +MIRT-68 PO; +MIRT-69 PO; -MIRT15TA6 PO; -MIRT30TA6 PO
[2020-08-30 14:55] LABS: BASOPHILS # (AUTO) 0.2 10^3/uL (0.0-0.1); BASOPHILS % (AUTO) 3 % (0-10); EOSINOPHILS # (AUTO) 0.1 10^3/uL (0.0-0.3); EOSINOPHILS % (AUTO) 2 % (0-10); HEMATOCRIT 47 % (35-52); LYMPHOCYTES % (AUTO) 30 % (12-44); MEAN CORPUSCULAR HEMOGLOBIN 32 pg (25-34); MEAN CORPUSCULAR HGB CONC 32 g/dL (32-36); MEAN CORPUSCULAR VOLUME 100 fL (80-99); MEAN PLATELET VOLUME 9.3 fL (9.0-12.2); MONOCYTES # (AUTO) 1.4 10^3/uL (0.0-1.0); MONOCYTES % (AUTO) 21 % (0-12); NEUTROPHILS # (AUTO) 2.8 10^3/uL (1.8-7.8); NEUTROPHILS % (AUTO) 42 % (42-75); PLATELET COUNT 325 10^3/uL (130-400); WHITE BLOOD COUNT 6.5 10^3/uL (4.3-11.0)
[2020-08-30 15:13] LABS: ALBUMIN 3.6 GM/DL (3.2-4.5); BILIRUBIN,TOTAL 0.5 MG/DL (0.1-1.0); CALCIUM 9.3 MG/DL (8.5-10.1); CREATININE SERUM 1.13 MG/DL (0.60-1.30); POTASSIUM 4.2 MMOL/L (3.6-5.0); TOTAL PROTEIN 6.9 GM/DL (6.4-8.2)
== END 2020-09-12 | disposition home or self-care (01) ==
LOC: ONC 14:44
PROVIDERS: ATTEND Internal Medicine Hematology & Oncology
DX: C90.00 Multiple myeloma not having achieved remission (principal); I10 Essential (primary) hypertension; M19.011 Primary osteoarthritis, right shoulder; K21.9 Gastro-esophageal reflux disease without esophagitis; F32.9 Major depressive disorder, single episode, unspecified; M89.9 Disorder of bone, unspecified; R19.7 Diarrhea, unspecified; B02.9 Zoster without complications; I48.20 Chronic atrial fibrillation, unspecified; M84.451A Pathological fracture, right femur, initial encounter for fracture; G62.9 Polyneuropathy, unspecified; E87.1 Hypo-osmolality and hyponatremia; G47.30 Sleep apnea, unspecified; I48.91 Unspecified atrial fibrillation; Z96.652 Presence of left artificial knee joint; Z95.0 Presence of cardiac pacemaker; Z79.01 Long term (current) use of anticoagulants; Z92.3 Personal history of irradiation; Z79.899 Other long term (current) drug therapy
CPT/HCPCS: 80053; 82784 ×3; 83883; 85025; G0463; 99213

== ENCOUNTER 2020-11-23 10:07 | Outpatient (RCR) | payer MEDICARE ==
[2020-09-27 14:51] LABS: BASOPHILS # (AUTO) 0.2 10^3/uL (0.0-0.1); BASOPHILS % (AUTO) 3 % (0-10); EOSINOPHILS # (AUTO) 0.1 10^3/uL (0.0-0.3); EOSINOPHILS % (AUTO) 2 % (0-10); HEMATOCRIT 49 % (35-52); HEMOGLOBIN 15.6 g/dL (11.5-16.0); LYMPHOCYTES # (AUTO) 2.1 10^3/uL (1.0-4.0); LYMPHOCYTES % (AUTO) 30 % (12-44); MEAN CORPUSCULAR HEMOGLOBIN 32 pg (25-34); MEAN CORPUSCULAR HGB CONC 32 g/dL (32-36); MEAN CORPUSCULAR VOLUME 101 fL (80-99); MEAN PLATELET VOLUME 9.5 fL (9.0-12.2); MONOCYTES # (AUTO) 1.2 10^3/uL (0.0-1.0); MONOCYTES % (AUTO) 17 % (0-12); NEUTROPHILS # (AUTO) 3.3 10^3/uL (1.8-7.8); NEUTROPHILS % (AUTO) 48 % (42-75); PLATELET COUNT 287 10^3/uL (130-400); WHITE BLOOD COUNT 6.9 10^3/uL (4.3-11.0)
[2020-09-27 15:12] LABS: ALBUMIN 3.7 GM/DL (3.2-4.5); BILIRUBIN,TOTAL 0.7 MG/DL (0.1-1.0); CALCIUM 10.2 MG/DL (8.5-10.1); CREATININE SERUM 1.24 MG/DL (0.60-1.30); TOTAL PROTEIN 7.5 GM/DL (6.4-8.2)
[2020-11-15 14:16] LABS: BASOPHILS # (AUTO) 0.1 10^3/uL (0.0-0.1); BASOPHILS % (AUTO) 1 % (0-10); EOSINOPHILS # (AUTO) 0.3 10^3/uL (0.0-0.3); EOSINOPHILS % (AUTO) 4 % (0-10); HEMATOCRIT 43 % (35-52); HEMOGLOBIN 13.7 g/dL (11.5-16.0); LYMPHOCYTES # (AUTO) 1.8 10^3/uL (1.0-4.0); LYMPHOCYTES % (AUTO) 24 % (12-44); MEAN CORPUSCULAR HEMOGLOBIN 33 pg (25-34); MEAN CORPUSCULAR HGB CONC 32 g/dL (32-36); MEAN CORPUSCULAR VOLUME 103 fL (80-99); MEAN PLATELET VOLUME 9.9 fL (9.0-12.2); MONOCYTES % (AUTO) 13 % (0-12); NEUTROPHILS # (AUTO) 4.3 10^3/uL (1.8-7.8); NEUTROPHILS % (AUTO) 58 % (42-75); PLATELET COUNT 215 10^3/uL (130-400); WHITE BLOOD COUNT 7.5 10^3/uL (4.3-11.0)
[2020-11-15 14:39] LABS: ALBUMIN 3.7 GM/DL (3.2-4.5); BILIRUBIN,TOTAL 0.7 MG/DL (0.1-1.0); CALCIUM 10.2 MG/DL (8.5-10.1); POTASSIUM 4.1 MMOL/L (3.6-5.0); TOTAL PROTEIN 7.2 GM/DL (6.4-8.2)
[~2020-11-23 10:07] MED LIST changes: -MAGN400T8 PO; +MGX400T PO
== END 2020-12-26 | disposition home or self-care (01) ==
LOC: ONC 10:07
PROVIDERS: ATTEND Internal Medicine Hematology & Oncology
DX: C90.00 Multiple myeloma not having achieved remission (principal); F32.9 Major depressive disorder, single episode, unspecified; G47.30 Sleep apnea, unspecified; E87.1 Hypo-osmolality and hyponatremia; G62.9 Polyneuropathy, unspecified; I48.20 Chronic atrial fibrillation, unspecified; I10 Essential (primary) hypertension; Z96.652 Presence of left artificial knee joint; Z92.3 Personal history of irradiation; Z79.899 Other long term (current) drug therapy
CPT/HCPCS: 80053; 82784 ×3; 83883; 85025; G0463; 99213

== ENCOUNTER 2021-01-24 14:46 | Outpatient (RCR) | payer MEDICARE ==
[2021-01-17 14:09] LABS: BASOPHILS # (AUTO) 0.1 10^3/uL (0.0-0.1); BASOPHILS % (AUTO) 1 % (0-10); EOSINOPHILS # (AUTO) 0.2 10^3/uL (0.0-0.3); EOSINOPHILS % (AUTO) 3 % (0-10); HEMATOCRIT 46 % (35-52); HEMOGLOBIN 14.5 g/dL (11.5-16.0); LYMPHOCYTES # (AUTO) 1.8 10^3/uL (1.0-4.0); LYMPHOCYTES % (AUTO) 23 % (12-44); MEAN CORPUSCULAR HEMOGLOBIN 32 pg (25-34); MEAN CORPUSCULAR HGB CONC 32 g/dL (32-36); MEAN CORPUSCULAR VOLUME 102 fL (80-99); MEAN PLATELET VOLUME 9.9 fL (9.0-12.2); MONOCYTES # (AUTO) 0.8 10^3/uL (0.0-1.0); MONOCYTES % (AUTO) 10 % (0-12); NEUTROPHILS # (AUTO) 4.9 10^3/uL (1.8-7.8); NEUTROPHILS % (AUTO) 62 % (42-75); PLATELET COUNT 220 10^3/uL (130-400); WHITE BLOOD COUNT 7.9 10^3/uL (4.3-11.0)
[2021-01-17 14:48] LABS: ALBUMIN 3.8 GM/DL (3.2-4.5); BILIRUBIN,TOTAL 0.5 MG/DL (0.1-1.0); CALCIUM 9.4 MG/DL (8.5-10.1); CREATININE SERUM 1.03 MG/DL (0.60-1.30); POTASSIUM 4.2 MMOL/L (3.6-5.0); TOTAL PROTEIN 7.3 GM/DL (6.4-8.2)
[~2021-01-24 14:46] MED LIST changes: +MONT-40 PO; -MONT10TA32 PO; +POTA-169 PO; -POTA20TA8 PO
== END 2021-02-18 | disposition home or self-care (01) ==
LOC: ONC 14:46
PROVIDERS: ATTEND Internal Medicine Hematology & Oncology
DX: C90.00 Multiple myeloma not having achieved remission (principal); F32.9 Major depressive disorder, single episode, unspecified; G47.30 Sleep apnea, unspecified; E87.1 Hypo-osmolality and hyponatremia; G62.9 Polyneuropathy, unspecified; I48.20 Chronic atrial fibrillation, unspecified; I10 Essential (primary) hypertension; Z96.652 Presence of left artificial knee joint; Z92.3 Personal history of irradiation; Z79.899 Other long term (current) drug therapy
CPT/HCPCS: 80053; 82784; 83883; 85025; 99213

== ENCOUNTER → 2021-07-06 | Outpatient (CLI) | payer MEDICARE | LOC: CARD 14:00 | PROVIDERS: ATTEND Nurse Practitioner Family | DX: I48.0 Paroxysmal atrial fibrillation (principal); I07.1 Rheumatic tricuspid insufficiency | CPT/HCPCS: 93306 ==